=== PATIENT | female | born 1940 | race Caucasian/White ===

== ENCOUNTER → 2019-08-11 11:25 | Outpatient (BNVA) | payer MEDICARE, MEDICAID, SELFPAY | PROVIDERS: Family Provider Nurse Practitioner Family; Referring Provider Nurse Practitioner Family; Visit Provider Specialist | DX: M25.562 Pain in left knee (principal) | CPT/HCPCS: 73560; 73565 ==

== ENCOUNTER 2019-09-17 17:11 | Emergency (ER) | payer MEDICARE, MEDICAID, SELFPAY ==
[2019-09-17 17:14] VITALS: BP 118/63; PULSE 73; RESP 18; TEMP 36.6; O2SAT 94; BMI 35.2
--- NOTE | 2019-09-17 17:19 | ED_ITS ---
Entered by Jayda Montejo, acting as scribe for Stephanie Castañeda DO Sep 17, 2019 17:11 HPI - Extremity Problem General: Stated complaint: leg pain,swelling Time Seen by Provider: 09/17/19 17:20 Discharge Plan Discharge Prescriptions: No Action tramadol 50 mg tablet 50 mg PO Q6H PRNRF: 0 metoprolol tartrate 25 mg tablet 12.5 mg PO BID RF: 0 simvastatin 20 mg tablet 20 mg PO QDAY RF: 0 aspirin 325 mg tablet 325 mg PO QDAY RF: 0 calcium carbonate [Calcium 500] 500 mg calcium (1,250 mg) tablet 500 mg PO QDAY RF: 0 fexofenadine 180 mg tablet 180 mg PO QDAY RF: 0 magnesium oxide,aspartate,citr 400 mg magnesium capsule PO RF: 0 prenat.vits,james,[id number]-[id number]-[id number] PO RF: 0 ferrous sulfate [Feosol] 325 mg (65 mg iron) tablet 325 mg PO QDAY RF: 0 ergocalciferol (vitamin D2) 2,500 unit capsule 2,500 unit PO .COMPLEX RF: 0 citalopram [Celexa] 40 mg tablet 20 mg PO QDAY RF: 0 ropinirole 0.25 mg tablet 0.25 mg PO QDAY RF: 0 Coding Level of Care Code ED Fire Alarm Inspector for Jose Maria Tran
--- NOTE | 2019-09-17 17:26 | ED_ITS ---
HPI - General Adult General: Chief complaint: General Medical Stated complaint: leg pain,swelling Time Seen by Provider: 09/17/19 17:20 History of Present Illness: HPI narrative: Patient is a 79-year-old female comes to the ED with lower extremity pain and swelling. Symptoms started 3 days ago and have gotten worse. The symptoms are bilateral and the pain and swelling starts superior to the ankle and goes up to about mid tibia. It is also has some erythema on both right and left lower leg. Patient denies any shortness of breath or chest pain. Associated symptoms: Deny chest pain, dyspnea, headache(s), nausea, rash, palpitations or vomiting Review of Systems Const: Denies: fever, chills or fatigue Eyes: Denies: change in vision or eye discomfort ENMT: Denies: throat pain, painful swallowing, nasal discharge or nasal congestion Card: Denies: chest pain, palpitations, edema, swelling of feet/ankles, shortness of breath on exertion or shortness of breath when lying down Resp: Denies: shortness of breath, productive cough or non-productive cough GI: Denies: abdominal pain, nausea, vomiting, diarrhea, constipation or blood in stool : Denies: flank pain, painful urination or blood in urine Musc: Reports: extremity pain (bilateral lower leg) and extremity swelling (bilateral lower leg); Denies: neck pain or back pain Skin/Breast: Reports: redness (bilateral lower legs) and skin tenderness (bilateral lower legs); Denies: rash or new lesion Neuro: Denies: headache, numbness in extremities or weakness in extremities PFS ED PFSH: Family History Other Dementia Diabetes Heart attack Hypertension Social History Smoking and tobacco status: never smoked Physical Exam Const: COMMON NORMALS: oriented x3 HENMT: COMMON NORMALS: normocephalic HEAD & SCALP: normocephalic MOUTH: oral and palatal mucosa normal THROAT: posterior oropharynx normal and uvula midline Neck/C-Spine: COMMON NORMALS: supple GENERAL: Yes normal visual inspection Resp: COMMON NORMALS: normal respiratory effort, no retractions, no use of accessory muscles and clear to auscultation bilaterally AUSCULTATION: clear to auscultation bilaterally Cardio: COMMON NORMALS: regular rate, regular rhythm, S1 normal heart sound, S2 normal heart sound, no gallops, no clicks, no murmurs and peripheral pulses 2+ throughout RATE: regular rate RHYTHM: regular rhythm HEART SOUNDS: S1 normal and S2 normal PERIPHERAL PULSES: pulses 2+ throughout GI: COMMON NORMALS: normal to inspection, nondistended, normoactive bowel sounds, soft to palpation, non-tender and no masses PALPATION: Yes soft : COMMON NORMALS: Yes no CVA tenderness BLADDER/KIDNEY EXAM: Yes no CVA tenderness Back/Pelvis: COMMON NORMALS: no CVA tenderness Extremity: NARRATIVE EXTREMITY EXAM: Right and left lower legs starting at about the ankle up to the mid calf region had erythema and warmth. They were also tender upon palpation. 2+ pitting edema bilaterally starting superior to the ankle and the edema went all the way up the lower leg just inferior to knee. GENERAL: Yes normal exam except as noted and Yes edema (2+ pitting edema on both L and R lower legs--up to the knee) Neuro: COMMON NORMALS: oriented x3 and moves all extremities Skin: GENERAL SKIN EXAM: erythema (Erythema and warmth bilateral lower legs about ankle to mid calf.) Course Vital Signs: Vital signs: Vital Signs Temperature 97.8 F 09/17/19 17:14 Pulse Rate 76 09/17/19 19:47 Respiratory Rate 16 09/17/19 19:47 Blood Pressure 111/67 09/17/19 19:47 Pulse Oximetry 96 09/17/19 19:47 [facility] - General Adult Imaging Data^: US Vascular: Attestation: I personally reviewed and interpreted this imaging study as follows: Radiologist's impression: Ultrasound venous duplex bilateral lower extremity?prelim report-showed an old clot in the popliteal vein of Right leg, but it is nonobstructing and the vein compresses. Discharge Plan Discharge Patient Disposition: Home, Self-Care Clinical Impression: Cellulitis Qualifiers: Site of cellulitis: extremity Site of cellulitis of extremity: lower extremity Laterality: unspecified laterality Qualified Code(s): L03.119 - Cellulitis of unspecified part of limb Condition: Stable Prescriptions: New sulfamethoxazole-trimethoprim 800-160 mg tablet 1 tab PO BID 7 Days Qty: 14 RF: 0 No Action tramadol 50 mg tablet 50 mg PO Q6H PRN (Reason: Pain) RF: 0 metoprolol tartrate 25 mg tablet 12.5 mg PO BID RF: 0 simvastatin 20 mg tablet 20 mg PO DAILY RF: 0 aspirin 325 mg tablet 325 mg PO QDAY RF: 0 calcium carbonate [Calcium 500] 500 mg calcium (1,250 mg) tablet 500 mg PO DAILY RF: 0 fexofenadine 180 mg tablet 180 mg PO DAILY RF: 0 magnesium oxide,aspartate,citr 400 mg magnesium capsule 400 mg PO DAILY RF: 0 prenat.vits,james,[id number] 1 tab PO DAILY RF: 0 ferrous sulfate [Feosol] 325 mg (65 mg iron) tablet 325 mg PO DAILY RF: 0 ergocalciferol (vitamin D2) 2,500 unit capsule 2,500 unit PO .COMPLEX RF: 0 citalopram [Celexa] 40 mg tablet 20 mg PO DAILY RF: 0 ropinirole 0.25 mg tablet 0.25 mg PO DAILY RF: 0 Tylenol 325 mg Tablet 325 mg PO QID PRN (Reason: Pain) RF: 0 Discharge Orders: Discharge Order (Routine); Ordered 09/17/19 Ordered By: Loc Domínguez Referrals: Radha Piper FNP [Family Provider] - Discharge Diet: Regular Discharge Activity: Resume usual activity Patient Instructions: Cellulitis (ED) Activity Restrictions/Additional Instructions: Follow-up with your PCP in 7 days for reevaluation. Take full course of antibiotics as prescribed. Take ibuprofen or Tylenol as needed for pain or fevers. Drink plenty of fluids and stay hydrated. Return to the ED if symptoms worsen after 2-3 days of antibiotic treatment. Discharge Date/Time: 09/17/19 19:56 Coding Level of Care Code ED Medical Surgery Nurse for Jose Maria Fwisai Exam Comprehensive
--- NOTE | 2019-09-17 17:47 | PC.NURSE ---
Patient has bilateral pitting Edema to both lower extremities.
--- NOTE | 2019-09-17 18:06 | USR_ITS ---
PROCEDURE INFORMATION: Exam: US Duplex Lower Extremity Veins Exam date and time: 09/17/2019 6:43 PM Age: 79 years old Clinical indication: Edema, localized; Lower extremity, bilateral; Patient HX: No history of prior dvt; Additional info: Swelling and pain TECHNIQUE: Imaging protocol: Real-time duplex ultrasound of the Lower Extremities with 2-D piedra scale, color Doppler flow and spectral waveform analysis with image documentation. Complete exam focused on the bilateral lower extremity veins. COMPARISON: No relevant prior studies available. FINDINGS: Right deep veins: Hypoechoic, nonocclusive thrombus in the popliteal vein. The common femoral, femoral, proximal profunda femoral, posterior tibial and peroneal veins are patent without thrombus. Right superficial veins: Saphenofemoral junction is patent without thrombus. Left deep veins: Unremarkable. The common femoral, femoral, proximal profunda femoral, popliteal, posterior tibial and peroneal veins are patent without thrombus. Normal Doppler waveforms. Normal compressibility and/or augmentation response. Left superficial veins: Saphenofemoral junction is patent without thrombus. Soft tissues: Unremarkable. US/CV venous duplex [facility] [id number] IMPRESSION: Hypoechoic, nonocclusive thrombus in the right popliteal vein.
[2019-09-17 19:00] VITALS: BP 123/62; PULSE 68; RESP 16; O2SAT 95
--- NOTE | 2019-09-17 19:05 | PC.NURSE ---
Introduced myself to patient, patient getting an ultrasound at present voices no complaints, family at bedside.
[2019-09-17] MEDS: sulfamethoxazole-trimeth DS 160-800 mg Tablet 1 TAB PO (19:46)
[2019-09-17 19:47] VITALS: BP 111/67; PULSE 76; RESP 16; O2SAT 96
--- NOTE | 2019-09-17 19:56 | PC.NURSE ---
Patient dc'd home instable condition via wheelchair. Discharge papers and rx given and explained to patient with allq uestions asked and answered.
== END 2019-09-17 19:56 | disposition home or self-care (01) ==
PROVIDERS: Emergency Provider Physician Assistant; Family Provider Nurse Practitioner Family
DX: L03.119 Cellulitis of unspecified part of limb (principal)
CPT/HCPCS: 12345; 93970; 99281; 99283

== ENCOUNTER 2019-12-10 09:50 | Outpatient (CLI) | payer MEDICARE, MEDICAID, SELFPAY ==
--- NOTE | 2019-12-10 09:58 | FL_ITS ---
WS: [id number] MODIFIED BARIUM SWALLOW HISTORY: Other dysphagia FLUOROSCOPY TIME: 2.8 minutes. Modified barium swallow was performed by the speech pathologist. Fluoroscopy was provided with the pa tient in a lateral projection. Multiple food consistencies were provided. Patient swallowed all food consistencies without difficulty. No aspiration or laryngeal penetration. There is an esophageal diverticulum extending posteriorly from the C3-4 level. Intermittent visualiza tion with various stages of distention. There is very slight narrowing of the esophagus at this level also but does not cause limitation in swallowing. FL/FL barium swallow modifd [id number] IMPRESSION: 1. No aspiration or laryngeal penetration. 2. Intermittently visualized Zenker's diverticulum extending posteriorly at th e C3-4 level. Please see speech therapist report also for recommendations.
== END 2019-12-10 09:51 | disposition home or self-care (01) ==
LOC: RAD 09:55
PROVIDERS: PCP Nurse Practitioner Family; Visit Provider Nurse Practitioner Family
DX: R13.10 Dysphagia, unspecified (principal); K22.5 Diverticulum of esophagus, acquired
CPT/HCPCS: 74230; 92611

== ENCOUNTER 2021-05-01 15:33 | Outpatient (CLI) | payer MEDICARE, MEDICAID, SELFPAY ==
--- NOTE | 2021-05-01 15:53 | XR_ITS ---
WS: [id number] Left knee, 3 views, 05/01/2021 Clinical Data: PAIN IN LEFT KNEE, KNEE EFFUSION Comparison: Left knee, 08/11/2019. Findings: No fractures or dislocations are seen. There is medial joint compartment narrowing. The patella is in tact. Vascular calcification of the superficial femoral artery is seen. XR/XR knee LT 3V* [id number] Impression: Minimal narrowing of the medial joint compartment of the left knee. Kellgren-Alejo Classification: grade 1 (doubtful): doubtful joint space narr owing and possible osteophytic lipping
== END 2021-05-01 15:34 | disposition home or self-care (01) ==
PROVIDERS: PCP Nurse Practitioner Family; Visit Provider Specialist
DX: M25.562 Pain in left knee (principal)
CPT/HCPCS: 73562

== ENCOUNTER 2021-09-03 12:06 | Outpatient (CLI) | payer MEDICARE, MEDICAID, SELFPAY ==
--- NOTE | 2021-09-03 12:17 | US_ITS ---
WS: [id number] ULTRASOUND SOFT TISSUES LEFT knee HISTORY: CONTUSION OF L LOWER LEG COMPARISON: Radiograph 05/01/2021 TECHNIQUE: 2-D and color Doppler imaging is submitted. Ultrasound is directed over the lateral LEFT knee in the region of the palpable abnormality. There is a hypoechoic mass with shadowing in the subcutaneous soft tissues along the lateral proximal tibia. No increased vascularity. This mass is lobulated measuring 1.8 x 0.7 x 1.5 cm. There are a few additi onal round complex cystic areas along the lateral LEFT lower extremity. US/US soft tissue/extremity [id number] IMPRESSION: 1. Nonvascular cystic and hypoechoic nodules along the lateral LEFT knee in th e area of palpable abnormality. With no increased vascularity these are probabl y not soft tissue neoplastic masses. Meniscal cysts or thrombosed varicosities should be considered. 2. If additional evaluation is necessary MRI LEFT knee may be helpful.
== END 2021-09-03 12:07 | disposition home or self-care (01) ==
LOC: RAD 12:12
PROVIDERS: PCP Nurse Practitioner Family; Visit Provider Nurse Practitioner Family
DX: S80.12XA Contusion of left lower leg, initial encounter (principal); X58.XXXA Exposure to other specified factors, initial encounter
CPT/HCPCS: 76882

== ENCOUNTER 2021-10-22 15:46 | Outpatient (CLI) | payer MEDICARE, MEDICAID, SELFPAY ==
--- NOTE | 2021-10-22 16:13 | MR_ITS ---
WS: [id number] MRI LEFT KNEE, with and without contrast. HISTORY: NON VASCULAR CYSTIC AND HYPO ECHO NODULES; MENISCAL CYST Multiplanar sequences through the knee are performed with and without gadolinium. COMPARISON: Knee radiographs 05/01/2021 and soft tissue ultrasound 09/03/2021. Anterior cruciate ligament: Mild thinning of the ACL but the fibers do appear intact. Posterior cruciate ligament: Intact. Medial collateral ligament: Intact. Posterior lateral corner structures: Intact. Medial menisci: Normal. No meniscal tears. Lateral meniscus: Complex tear in the posterior horn. There is blunting of the free edge and abnormal signal extending to the superior and inferior articular surfaces and towards the meniscal root. Mild intrasubstance degeneration in the anterior horn. Extensor mechanism: Distal quadriceps tendon and patellar tendons are intact. Fluid and soft tissue: No joint effusion. No Chaudhry's cyst. Osseous and articular structures: Patellofemoral compartment: Mild diffuse chondromalacia. No marrow edema or subchondral cysts. There is very slight lateral subluxation of the patella. No significant amount of fluid at the joint space. Medial compartment: Mild narrowing of the medial compartment. Mild diffuse thinning and fissuring of the cartilage. No marrow edema. Lateral compartment: Moderate narrowing of the lateral compartment with moderate chondromalacia. No m arrow edema or fracture. No soft tissue masses are identified. There are several small varicosities noted. There is no soft ti ssue mass. Normal marrow signal. The small round nodules in this subcutaneous soft tissue along the l ateral knee do not enhance. MR/MR knee LT wo/w con [id number] IMPRESSION: 1. No enhancing soft tissue mass identified. 2. Small previous the described nodules along lateral knee do not enhance and these are probably thrombosed varicosities. 3. Complex tear posterior horn of the lateral meniscus. 4. 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
[2021-10-22] MEDS: gadobenate dimeglumine 20 mL vial IV (17:44)
== END 2021-10-22 15:47 | disposition home or self-care (01) ==
LOC: RAD 15:48
PROVIDERS: PCP Nurse Practitioner Family; Visit Provider Nurse Practitioner Family
DX: S83.272A Complex tear of lateral meniscus, current injury, left knee, initial encounter (principal); X58.XXXA Exposure to other specified factors, initial encounter
CPT/HCPCS: 73723; 82565

== ENCOUNTER 2021-12-29 18:50 | Inpatient (IN) | payer MEDICARE, MEDICAID, SELFPAY ==
--- NOTE | 2021-12-29 19:00 | ECG_ITS ---
[facility] Test Date: 2021-12-29 Pat Name: Heidi Banuelos Department: Room: Gender: Female Tobacco Blender: : 1940 Requested By: Rodney Lay Order Number: [id number] Leopoldo MD: Cookie Carolina M.D. Measurements Intervals [place] Rate: 79 P: 57 MD: 161 QRS: 48 QRSD: 90 T: 41 QT: 385 QTc: 443 Interpretive Statements SINUS RHYTHM NONSPECIFIC T-WAVE ABNORMALITY Compared to ECG 07/30/2016 10:51:11 Ventricular premature complex(es) no longer present Possible ischemia no longer present T-wave abnormality still present Electronically Signed On 12-30-2021 13:01:46 CDT by Cookie Carolina M.D. [id number]
--- NOTE | 2021-12-29 19:00 | XRR_ITS ---
PROCEDURE INFORMATION: Exam: XR Chest Exam date and time: 12/29/2021 7:08 PM Age: 81 years old Clinical indication: Injury or trauma; Fall; Blunt trauma (contusions or hematomas); Additional info: SOB TECHNIQUE: Imaging protocol: Radiologic exam of the chest. Views: 1 view. COMPARISON: CR Chest 1 [place] [id number] 07/29/2016 1:28 PM FINDINGS: Lungs: Reticular changes of pulmonary interstitium. No consolidation. Pleural spaces: Unremarkable. No pleural effusion. No pneumothorax. Heart/Mediastinum: Large hiatal hernia. Grossly unremarkable cardiac silhouette given the portable technique and lordotic position. Bones/joints: Right proximal humerus surgical anchor. No fractures identified. XR/XR chest 1V portable [id number] IMPRESSION: No acute chest abnormality identified.
--- NOTE | 2021-12-29 19:03 | CTR_ITS ---
PROCEDURE INFORMATION: Exam: CT Head Without Contrast Exam date and time: 12/29/2021 8:08 PM Age: 81 years old Clinical indication: Injury or trauma; Fall; Blunt trauma (contusions or hematomas); Additional info: AMS TECHNIQUE: Imaging protocol: Computed tomography of the head without contrast. Radiation optimization: All CT scans at this facility use at least one of these dose optimization techniques: automated exposure control; mA and/or kV adjustment per patient size (includes targeted exams where dose is matched to clinical indication); or iterative reconstruction. 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 No intracranial hemorrhage. No mass effect on the brain. No midline shift of brain. [place] matter and white matter interfaces are preserved. Cerebral ventricles: No ventriculomegaly. Paranasal sinuses: Visualized sinuses are unremarkable. No fluid levels. Mastoid air cells: Visualized mastoid air cells are well aerated. Orbital cavities: Symmetric orbits. Lens replacements. Bones/joints: Unremarkable. No acute fracture. Soft tissues: Unremarkable. CT/CT head wo con* [id number] IMPRESSION: Negative for acute intracranial abnormality.
--- NOTE | 2021-12-29 19:03 | XRR_ITS ---
PROCEDURE INFORMATION: Exam: XR Right Hip Exam date and time: 12/29/2021 7:19 PM Age: 81 years old Clinical indication: Injury or trauma; Fall; Blunt trauma (contusions or hematomas); Right; Hip TECHNIQUE: Imaging protocol: Radiologic exam of the Right hip. Views: 1 view hip with pelvis when performed. COMPARISON: CR Pelvis AP 1 or 2 views* [id number] 07/04/2019 3:24 PM FINDINGS: Bones/joints: Unremarkable. No acute fracture. 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 Soft tissues: Unremarkable. XR/XR hip RT 2-3V wo/w pel* [id number] IMPRESSION: No acute findings.
--- NOTE | 2021-12-29 19:03 | XRR_ITS ---
PROCEDURE INFORMATION: Exam: XR Right Knee Exam date and time: 12/29/2021 7:34 PM Age: 81 years old Clinical indication: Injury or trauma; Fall; Blunt trauma; Knee; Right TECHNIQUE: Imaging protocol: Radiologic exam of the Right knee. Views: 1 or 2 views. COMPARISON: [place] [id number] 09/17/2019 6:55 PM FINDINGS: Bones/joints: Moderate severity joint space narrowing. Demineralized bones. No fractures. Unremarkable joint space alignment. Negative for joint space effusion. Soft tissues: Normal. Vasculature: Diffuse atherosclerosis. XR/XR knee RT 1-2V [id number] IMPRESSION: Negative for acute right knee joint abnormality.
[2021-12-29 19:11] VITALS: BP 151/99; PULSE 93; RESP 18; O2SAT 96
--- NOTE | 2021-12-29 19:14 | W.ED.AMS ---
HPI - Altered Mental Status General: Chief Complaint: Altered Mental Status Stated Complaint: WEAKNESS S/P FALL Time Seen by Provider: 12/29/21 18:52 History of Present Illness: Patient is brought in by EMS after being found down at home by family. Patient is normally responsive and interactive, however today when they found her she is not responding appropriately. Upon arrival here the patient is confused, and running a fever. She is awake. Review of Systems General: Reports: ROS unobtainable due to mental status Const: Denies: fever(s) or body aches Eyes: Denies: change in vision or blurry vision ENMT: Denies: throat pain or odynophagia Card: Denies: chest pain or palpitations Resp: Denies: dyspnea or productive cough GI: Denies: abdominal pain, nausea or vomiting : Denies: flank pain or dysuria Musc: Denies: neck pain or back pain Skin/Breast: Denies: rash or pruritus Neuro: Reports: numbness in extremities and weakness in extremities; Denies: headache(s) Psych: Denies: anxiety or change in appetite Endo: Denies: polyuria or excessive sweating PFSH ED PFSH: Family History Other Dementia Diabetes Heart attack Hypertension Social History Smoking and tobacco status: never smoked Physical Exam Const: OTHER: Confused HENMT: COMMON NORMALS: normocephalic and atraumatic HEAD & SCALP: normocephalic and atraumatic Eye: COMMON NORMALS: Equal, round and reactive pupils present and EOMs intact bilaterally PUPIL: Yes Equal, round and reactive pupils present Neck/C-Spine: COMMON NORMALS: full ROM and supple Resp: COMMON NORMALS: No retractions and No use of accessory muscles OTHER: Tachypnea Cardio: COMMON NORMALS: regular rate and regular rhythm RATE: regular rate RHYTHM: regular rhythm GI: COMMON NORMALS: Normal to inspection, nondistended, normoactive bowel sounds present, Soft to palpation and non-tender PALPATION: Yes Soft to palpation Extremity: OTHER: Right hip tenderness to palpation, right leg externally rotated Neuro: OTHER: Patient is awake but confused Psych: COMMON NORMALS: negative for mental status grossly normal Skin: COMMON NORMALS: no rashes or lesions noted and no wounds GENERAL SKIN EXAM: no rashes or lesions noted Course Vital Signs: Vital signs: Vital Signs Pulse Rate 76 12/29/21 21:02 Respiratory Rate 16 12/29/21 21:02 Blood Pressure 141/76 12/29/21 21:02 Pulse Oximetry 96 12/29/21 21:02 MDM - Altered Mental Status Medical Decision Making Patient is brought in by EMS after being found down at home by family. Patient is normally responsive and interactive, however today when they found her she is not responding appropriately. Upon arrival here the patient is confused, and running a fever. She is awake. On physical exam she has dry mucous membranes, right hip tenderness to palpation. Will check labs, CT, x-ray, give IV fluids, and reassess. On reassessment I will start the patient on antibiotics, continue IV fluid resuscitation, and admit to the hospital for further work-up and treatment. Lab Data : 12/29/21 19:06 12/29/21 19:06 Radiology Impressions Chest X-Ray 12/29/21 19:00 IMPRESSION: No acute chest abnormality identified. Head CT 12/29/21 19:03 IMPRESSION: Negative for acute intracranial abnormality. Hip/Pelvis X-Ray 12/29/21 19:03 IMPRESSION: No acute findings. Knee X-Ray 12/29/21 19:03 IMPRESSION: Negative for acute right knee joint abnormality. Laboratory Results WBC 10.8 10^3/uL (4.0-10.0) H 12/29/21 19:06 RBC 4.04 10^6/uL (4.1-5.3) L 12/29/21 19:06 Hgb 12.9 g/dL (11.5-15.3) 12/29/21 19:06 Hct 37.7 % (37.0-47.0) 12/29/21 19:06 MCV 93.3 fl (81-99) 12/29/21 19:06 MCH 31.9 pg (28.0-34.0) 12/29/21 19:06 MCHC 34.2 g/dL (30.0-36.0) 12/29/21 19:06 RDW 12.0 % (12.1-15.1) L 12/29/21 19:06 Plt Count 236 10^3/cmm (130-400) 12/29/21 19:06 MPV 10.9 fL (7.4-10.4) H 12/29/21 19:06 Neut % (Auto) 87.9 % 12/29/21 19:06 Lymph % (Auto) 6.4 % 12/29/21 19:06 [place] % (Auto) 5.2 % 12/29/21 19:06 Eos % (Auto) 0.0 % 12/29/21 19:06 Baso % (Auto) 0.2 % 12/29/21 19:06 Neut # (Auto) 9.47 10^3/uL (1.8-7.7) H 12/29/21 19:06 Lymph # (Auto) 0.7 10^3/uL (0.8-4.8) L 12/29/21 19:06 [place] # (Auto) 0.6 10^3/uL (0.2-0.9) 12/29/21 19:06 Eos # (Auto) 0.0 10^3/uL (0.0-0.8) 12/29/21 19:06 Baso # (Auto) 0.0 10^3/uL (0.0-0.1) 12/29/21 19:06 Nucleated RBC % (auto) 0 % 12/29/21 19:06 Nucleated RBCs # 0.0 /100WBC 12/29/21 19:06 Sodium 137 mmol/L (136-145) 12/29/21 19:06 Potassium 3.5 mmol/L (3.5-5.1) 12/29/21 19:06 Chloride 97 mmol/L (98-107) L 12/29/21 19:06 Carbon Dioxide 23 mmol/L (22-29) 12/29/21 19:06 Anion Gap 20.5 (5-19) H 12/29/21 19:06 BUN 14 mg/dL (8-23) 12/29/21 19:06 Creatinine 0.8 mg/dL (0.5-0.9) 12/29/21 19:06 GFR Calculation Not Reportable 12/29/21 19:06 Glucose 182 mg/dL (65-115) H 12/29/21 19:06 Calculated Osmolality 289 mOsm/kg (285-295) 12/29/21 19:06 Lactic Acid 3.8 mmol/L (0.5-2.2) H 12/29/21 19:06 Calcium 9.6 mg/dL (8.5-10.5) 12/29/21 19:06 Total Bilirubin 1.2 mg/dL (0.15-1.2) 12/29/21 19:06 AST 88 U/L (0-32) H 12/29/21 19:06 ALT 23 U/L (0-33) 12/29/21 19:06 Alkaline Phosphatase 58 IU/L (35-105) 12/29/21 19:06 Ammonia 28 umol/L (11-51) 12/29/21 19:06 Creatine Kinase 3064 U/L (26-192) H* 12/29/21 19:06 Total Protein 7.3 g/dL (6.6-8.7) 12/29/21 19:06 Albumin 4.2 g/dL (3.5-5.2) 12/29/21 19:06 Globulin 3.1 g/dL (1.3-4.6) 12/29/21 19:06 Urine Color Yellow (Yellow) 12/29/21 19:45 Urine Appearance Hazy (CLEAR) A 12/29/21 19:45 Urine pH 7 (5-7) 12/29/21 19:45 Ur Specific [place] 1.010 (1.005-1.030) 12/29/21 19:45 Urine Protein 1+ (Negative) H 12/29/21 19:45 Urine Glucose (UA) Norm (Normal) 12/29/21 19:45 Urine Ketones 1+ (Negative) H 12/29/21 19:45 Urine Blood 3+ (Negative) H 12/29/21 19:45 Urine Nitrate Negative (Negative) 12/29/21 19:45 Urine Bilirubin Neg (Negative) 12/29/21 19:45 Urine Urobilinogen Norm mg/dL (Negative) 12/29/21 19:45 Ur Leukocyte Esterase 2+ (Negative) H 12/29/21 19:45 Urine RBC 0-4 /hpf (0-2) H 12/29/21 19:45 Urine WBC 40-55 /hpf (0-5) H 12/29/21 19:45 Ur Squamous Epith Cells 0-4 /hpf (0-5) H 12/29/21 19:45 Amorphous Sediment Not Reportable 12/29/21 19:45 Urine Bacteria 3+ /hpf (NONE) H 12/29/21 19:45 Discharge Plan Discharge Patient Disposition: Admitted As Inpatient Clinical Impression: Rhabdomyolysis, Altered mental status, Urinary tract infection Condition: Stable Coding Level of Care Code ED Explosive Operator Fuse for Jose Maria Fwisai Exam Comprehensive
[2021-12-29 19:16] LABS: Basophils % 0.2 %; Hematocrit 37.7 % (37.0-47.0); Hemoglobin 12.9 g/dL (11.5-15.3); Lymphocytes # 0.7 10^3/uL (0.8-4.8); Lymphocytes % 6.4 %; Mean Corpuscular HGB Conc 34.2 g/dL (30.0-36.0); Mean Corpuscular Hemoglobin 31.9 pg (28.0-34.0); Mean Corpuscular Volume 93.3 fl (81-99); Mean Platelet Volume 10.9 fL (7.4-10.4); Monocytes # 0.6 10^3/uL (0.2-0.9); Monocytes % 5.2 %; Neutrophils # 9.47 10^3/uL (1.8-7.7); Neutrophils % 87.9 %; Nucleated Red Blood Cells % 0 %; Platelet Count 236 10^3/cmm (130-400); Red Blood Count 4.04 10^6/uL (4.1-5.3); White Blood Count 10.8 10^3/uL (4.0-10.0)
[2021-12-29 19:37] LABS: Alanine Aminotransferase 23 U/L (0-33); Albumin Level 4.2 g/dL (3.5-5.2); Alkaline Phosphatase 58 IU/L (35-105); Ammonia 28 umol/L (11-51); Anion Gap 20.5 (5-19); Aspartate Amino Transferase 88 U/L (0-32); Blood Urea Nitrogen 14 mg/dL (8-23); Calcium 9.6 mg/dL (8.5-10.5); Carbon Dioxide 23 mmol/L (22-29); Chloride 97 mmol/L (98-107); Globulin 3.1 g/dL (1.3-4.6); Glucose 182 mg/dL (65-115); Lactic Sepsis W/Reflex 3.8 mmol/L (0.5-2.2); Osmolality Calculated 289 mOsm/kg (285-295); Potassium 3.5 mmol/L (3.5-5.1); Sodium 137 mmol/L (136-145); Total Bilirubin 1.2 mg/dL (0.15-1.2); Total Protein 7.3 g/dL (6.6-8.7)
[2021-12-29 19:53] LABS: Creatine Phosphokinase 3064 U/L (26-192)
[2021-12-29 20:22] LABS: Add Urine Microscopic? YES; Bilirubin Urine Neg (Negative); Blood Urine 3+ (Negative); Glucose Urine UA Norm (Normal); Ketones Urine 1+ (Negative); Leukocyte Esterase Urine 2+ (Negative); Nitrate Urine Negative (Negative); Protein Urine 1+ (Negative); Urine Appearance Hazy (CLEAR); Urine Color Yellow (Yellow); Urobilinogen Urine Norm (Negative); pH Urine 7 (5-7)
[2021-12-29 20:24] LABS: Add Urine Culture? Yes; Bacteria Urine 3+ /hpf; RBC Urine 0-4 /hpf (0-2); Squamous Epithelial Cell Urine 0-4 /hpf (0-5); WBC Urine 40-55 /hpf (0-5)
[2021-12-29] MEDS: sodium chloride 0.9% 1,000 ML 999 ML IV ×2 (20:24→23:21)
[2021-12-29 21:00] LABS: Reflex Lactate Order REFLEX LACTIC ORDERD
[2021-12-29 21:02] VITALS: BP 141/76; PULSE 76; RESP 16; O2SAT 96
[2021-12-29] MEDS: cefTRIAXone 1,000 MG in sodium chloride 0.9% (plus) 50 ML 100 MG IV (21:02)
[2021-12-29 22:11] LABS: Lactic Acid level (Lactate) 1.1 mmol/L (0.5-2.2)
[2021-12-29 22:36] LABS: Adenovirus Not Detected (NOT DETECT); Chlamydia Pneumoniae Not Detected (NOT DETECT); Coronavirus 229E,HKU1,NL63,OC4 Not Detected (NOT DETECT); Human Metapneumovirus Not Detected (NOT DETECT); Human Rhinovirus/Enterovirus Not Detected (NOT DETECT); Influenza A Not Detected (NOT DETECT); Influenza A H1 Not Detected (NOT DETECT); Influenza A H1-2009 Not Detected (NOT DETECT); Influenza A H3 Not Detected (NOT DETECT); Influenza B Not Detected (NOT DETECT); Mycoplasma Pneumoniae Not Detected (NOT DETECT); Parainfluenza Virus Type 1 Not Detected (NOT DETECT); Parainfluenza Virus Type 2 Not Detected (NOT DETECT); Parainfluenza Virus Type 3 Not Detected (NOT DETECT); Parainfluenza Virus Type 4 Not Detected (NOT DETECT); Respiratory Syncytial Virus A Not Detected (NOT DETECT); Respiratory Syncytial Virus B Not Detected (NOT DETECT); SARS-COV-2 Not Detected (NOT DETECT)
[2021-12-29] MEDS: sodium chloride 0.9% 1,000 ML 125 ML IV (23:21)
[2021-12-29 23:23] VITALS: BP 119/66; PULSE 72; RESP 20; TEMP 36.7; O2SAT 97
--- NOTE | 2021-12-29 23:23 | PM.HP ---
Providers/Chief Complaint Admitting Physician: Rocío Daniel MD Primary Care Provider: Radha Piper [employer] Chief Complaint: WEAKNESS S/P FALL History of Present Illness Heidi Banuelos is a 81 year old female who presented to the emergency room after being found down at home by family. She was quite confused when they found her. Last time that they saw her in person was maybe 12 hours prior to being found by their report. Corina's daughter took her some food over to her and she usually eats that and then later on goes to bed. Patient lives alone but her daughter is nearby and can see the lights in the house. The lights did not go out as they usually do which prompted the visit where they found her on the floor. She has not been quite herself the last few days. Some fevers, malaise and confusion. She indicates that she got up to go to the bathroom and fell down but cannot really provide clear details. She indicates her left leg was numb and that she has some other paresthesias but family clarified that that was not a new problem. No report of any speech or swallowing difficulties. Denies difficulty with either one of her hands. Patient is chronically incontinent. No indication at this is changed lately. She denies chest pain or difficulty breathing. No GI symptoms. Work-up in the emergency room included an unremarkable CT of the head. Urinalysis was suggestive of urinary tract infection. EKG did not show any acute ST segment changes. CK level was found to be quite elevated at greater than 3000. Patient received a dose of Rocephin and was started on some IV fluids. Request was made for admission for continued treatment. Again family indicates it was maybe 12 hours max that she might of been on the floor. They describe several episodes of falls lately each one more difficult than the last. There have been concerns about her continuing to live alone and being safe with this. She does not routinely use her walker. She has had falls both in the house and outside of it. Review of Systems General: Reports: Other (Patient confused and repeats questions presently so accuracy limited) Const: Reports: fever(s), chills and malaise Eyes: Reports: floaters (Not new); Denies: change in vision ENMT: Reports: dry mouth; Denies: throat pain or nasal congestion Card: Reports: swelling of feet/ankles; Denies: chest pain or palpitations Resp: Denies: dyspnea, productive cough or non-productive cough GI: Denies: abdominal pain, nausea, vomiting or diarrhea : Reports: urinary incontinence; Denies: difficulty voiding or hematuria Musc: Reports: extremity pain (chronic all over and acute both legs, right more than left) Skin/Breast: Denies: sores Neuro: Reports: numbness in extremities, weakness in extremities, lack of coordination, difficulty walking, frequent falls, dizziness, confusion, involuntary movements (legs sometimes) and other (falls backwards when she falls,never forward) Psych: Reports: other (repeating questions today, family says new of last week) Vishal/Lymph: Denies: easy bruising or easy bleeding Medications/Allergies Home Medications Medication Instructions Recorded Confirmed Last Taken Type aspirin 325 mg tablet 325 mg PO QDAY 08/11/19 09/17/19 09/16/19 History calcium carbonate 500 mg calcium 500 mg PO DAILY 08/11/19 09/17/19 09/17/19 History (1,250 mg) tablet (Calcium 500) citalopram 40 mg tablet (Celexa) 20 mg PO DAILY 08/11/19 09/17/19 09/17/19 History ergocalciferol (vitamin D2) 62.5 2,500 unit PO .COMPLEX cap 08/11/19 09/17/19 Unknown History mcg (2,500 unit) capsule ferrous sulfate 325 mg (65 mg 325 mg PO DAILY 08/11/19 09/17/19 09/17/19 History iron) tablet (Feosol) fexofenadine 180 mg tablet 180 mg PO DAILY 08/11/19 09/17/19 09/17/19 History magnesium oxide,aspartate,citr 400 mg PO DAILY 08/11/19 09/17/19 09/17/19 History metoprolol tartrate 25 mg tablet 12.5 mg PO BID 08/11/19 09/17/19 09/17/19 History prenat.vits,james,uwd-cbvb-whndj 1 tab PO DAILY 08/11/19 09/17/19 09/17/19 History ropinirole 0.25 mg tablet 0.25 mg PO DAILY 08/11/19 09/17/19 09/16/19 History simvastatin 20 mg tablet 20 mg PO DAILY 08/11/19 09/17/19 09/16/19 History tramadol 50 mg tablet 50 mg PO Q6H PRN 08/11/19 09/17/19 09/16/19 History acetaminophen 325 mg tablet 325 mg PO QID PRN 09/17/19 09/17/19 09/17/19 History (Tylenol) DME: Dave #1 each 11/01/19 Unknown Rx Allergies Allergy/AdvReac Type Severity Reaction Status Date / Time codeine AdvReac Gi Verified 08/11/19 11:51 upset/dizziness Penicillins AdvReac GI upset Verified 08/11/19 11:51 Additional Medication Information Above list is old. Unable to get specific information from patient this evening annd she is one who manages her medications. I was able to identify in external records that patient has had prescriptions written for metoprolol, simvastatin, citalopram, Requip and tramadol filled within the last few months. She also had a prescription for hydrochlorothiazide as needed for edema, but family indicates that this was stopped several weeks ago as patient was taking it every day rather than as needed. 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 Zenker's diverticulum intermittently seen in swallow study 11/2019 Surgical History (Updated 12/29/21 @ 23:39 by Rocío Daniel MD) History of appendectomy History of hysterectomy History of repair of rotator cuff Family History (Updated 12/29/21 @ 23:39 by Rocío Daniel MD) Other Cancer Dementia Diabetes Heart attack Hypertension Social History (Updated 12/29/21 @ 23:41 by Rocío Daniel MD) Smoking and tobacco status: never smoked Alcohol intake: never Substance/Drug Use: never Household members: other Details: lives alone but family near by Vitals/I&O/Wt Last Vital Signs Pulse 76 12/29/21 21:02 Resp 16 12/29/21 21:02 BP 141/76 12/29/21 21:02 Pulse Ox 96 12/29/21 21:02 12/29/21 12/29/21 12/30/21 14:59 22:59 06:59 Intake Total 1050 / 1050 Balance 1050 / 1050 Physical Exam Narrative: Constitutional: Awake and alert, cooperative, hard of hearing HEENT: Normocephalic, atraumatic, extraocular movements intact, reactive pupils, very dry oral mucosa with very dry lips Neck: Supple, no nodularity Respiratory: Clear to auscultation bilaterally without any rales rhonchi or wheezes Cardiovascular: Regular rate and rhythm, no murmurs, gallops or rubs noted Abdomen: Soft, nontender, positive bowel sounds : Chaudhry catheter noted, normal external genitalia Extremities: Trace edema bilaterally tender to palpation in musculature of the lower extremities anywhere I touch her, seen for the upper extremities though to a lesser degree Skin: Dry, most notable around the abdominal wall and into the groin area are small pinpoint areas of erythema, not involving the intertriginous areas, follicular distribution Neuro: Speech clear, face symmetric, handgrip equal, left lower extremity is slightly weaker than right lower extremity initially but with encouragement similar strength. Strength is weaker proximally at the present time. Psych: Oriented to person and place, made several identical statements and asked a few identical questions several times during the course of my evaluation without recollection of previous responses. At the same time when her granddaughter made a joke Mrs. Sanchez responsive sticking out her tongue was quite appropriate Urinary Catheter Management: Chaudhry: Cath Placed During This Visit: yes Urinary Catheter Date of Insertion: 12/29/21 Urinary Catheter Time of Insertion: 19:48 Data : 12/29/21 19:06 12/29/21 19:06 Other Labs: Radiology Impressions Chest X-Ray 12/29/21 19:00 IMPRESSION: No acute chest abnormality identified. Head CT 12/29/21 19:03 IMPRESSION: Negative for acute intracranial abnormality. Hip/Pelvis X-Ray 12/29/21 19:03 IMPRESSION: No acute findings. Knee X-Ray 12/29/21 19:03 IMPRESSION: Negative for acute right knee joint abnormality. Laboratory Results WBC 10.8 10^3/uL (4.0-10.0) H 12/29/21 19:06 RBC 4.04 10^6/uL (4.1-5.3) L 12/29/21 19:06 Hgb 12.9 g/dL (11.5-15.3) 12/29/21 19:06 Hct 37.7 % (37.0-47.0) 12/29/21 19:06 MCV 93.3 fl (81-99) 12/29/21 19:06 MCH 31.9 pg (28.0-34.0) 12/29/21 19:06 MCHC 34.2 g/dL (30.0-36.0) 12/29/21 19:06 RDW 12.0 % (12.1-15.1) L 12/29/21 19:06 Plt Count 236 10^3/cmm (130-400) 12/29/21 19:06 MPV 10.9 fL (7.4-10.4) H 12/29/21 19:06 Neut % (Auto) 87.9 % 12/29/21 19:06 Lymph % (Auto) 6.4 % 12/29/21 19:06 Bullock % (Auto) 5.2 % 12/29/21 19:06 Eos % (Auto) 0.0 % 12/29/21 19:06 Baso % (Auto) 0.2 % 12/29/21 19:06 Neut # (Auto) 9.47 10^3/uL (1.8-7.7) H 12/29/21 19:06 Lymph # (Auto) 0.7 10^3/uL (0.8-4.8) L 12/29/21 19:06 Bullock # (Auto) 0.6 10^3/uL (0.2-0.9) 12/29/21 19:06 Eos # (Auto) 0.0 10^3/uL (0.0-0.8) 12/29/21 19:06 Baso # (Auto) 0.0 10^3/uL (0.0-0.1) 12/29/21 19:06 Nucleated RBC % (auto) 0 % 12/29/21 19:06 Nucleated RBCs # 0.0 /100WBC 12/29/21 19:06 Sodium 137 mmol/L (136-145) 12/29/21 19:06 Potassium 3.5 mmol/L (3.5-5.1) 12/29/21 19:06 Chloride 97 mmol/L (98-107) L 12/29/21 19:06 Carbon Dioxide 23 mmol/L (22-29) 12/29/21 19:06 Anion Gap 20.5 (5-19) H 12/29/21 19:06 BUN 14 mg/dL (8-23) 12/29/21 19:06 Creatinine 0.8 mg/dL (0.5-0.9) 12/29/21 19:06 GFR Calculation Not Reportable 12/29/21 19:06 Glucose 182 mg/dL (65-115) H 12/29/21 19:06 Calculated Osmolality 289 mOsm/kg (285-295) 12/29/21 19:06 Lactic Acid 3.8 mmol/L (0.5-2.2) H 12/29/21 19:06 Lactic Acid (Sepsis) 1.1 mmol/L (0.5-2.2) 12/29/21 21:40 Calcium 9.6 mg/dL (8.5-10.5) 12/29/21 19:06 Total Bilirubin 1.2 mg/dL (0.15-1.2) 12/29/21 19:06 AST 88 U/L (0-32) H 12/29/21 19:06 ALT 23 U/L (0-33) 12/29/21 19:06 Alkaline Phosphatase 58 IU/L (35-105) 12/29/21 19:06 Ammonia 28 umol/L (11-51) 12/29/21 19:06 Creatine Kinase 3064 U/L (26-192) H* 12/29/21 19:06 Total Protein 7.3 g/dL (6.6-8.7) 12/29/21 19:06 Albumin 4.2 g/dL (3.5-5.2) 12/29/21 19:06 Globulin 3.1 g/dL (1.3-4.6) 12/29/21 19:06 Urine Color Yellow (Yellow) 12/29/21 19:45 Urine Appearance Hazy (CLEAR) A 12/29/21 19:45 Urine pH 7 (5-7) 12/29/21 19:45 Ur Specific [place] 1.010 (1.005-1.030) 12/29/21 19:45 Urine Protein 1+ (Negative) H 12/29/21 19:45 Urine Glucose (UA) Norm (Normal) 12/29/21 19:45 Urine Ketones 1+ (Negative) H 12/29/21 19:45 Urine Blood 3+ (Negative) H 12/29/21 19:45 Urine Nitrate Negative (Negative) 12/29/21 19:45 Urine Bilirubin Neg (Negative) 12/29/21 19:45 Urine Urobilinogen Norm mg/dL (Negative) 12/29/21 19:45 Ur Leukocyte Esterase 2+ (Negative) H 12/29/21 19:45 Urine RBC 0-4 /hpf (0-2) H 12/29/21 19:45 Urine WBC 40-55 /hpf (0-5) H 12/29/21 19:45 Ur Squamous Epith Cells 0-4 /hpf (0-5) H 12/29/21 19:45 Amorphous Sediment Not Reportable 12/29/21 19:45 Urine Bacteria 3+ /hpf (NONE) H 12/29/21 19:45 Coronavirus 229E (PCR) Not detected (NOT DETECT) 12/29/21 18:42 SARS-CoV-2 (PCR) Not detected (NOT DETECT) 12/29/21 18:42 Micro: Microbiology 12/29/21 21:47 Blood Culture - Preliminary Blood SPECIMEN COLLECTED 12/29/21 21:40 Blood Culture - Preliminary Blood SPECIMEN COLLECTED A&P Assessment and plan (1) Altered mental status: Predominantly confused and asking the same questions or stating the same thing several times, has been present for a couple of days more notable tonight. Family denies that this is a longstanding problem but brings up the question of possible dementia that is slowly becoming more apparent. That said currently with urinalysis suggestive of urinary tract infection, among other diagnoses noted below, which can also contribute. Status: Acute (2) Urinary tract infection: Present on admission, organism unknown, evidenced by at pyuria, 2+ leukocyte esterase, hazy appearance to urine with 3+ bacteria in the setting of confusion and mild leukocytosis with neutrophil predominance. Has confusion as noted above and some nonspecific abnormalities in labs consistent at least with some early systemic inflammatory response syndrome but no definitive sepsis currently. Normal vital signs. Status: Acute (3) Rhabdomyolysis: Likely secondary to being on the floor all night but she is also on chronic statin therapy, renal function currently normal CK at presentation 3064 Status: Acute (4) Recurrent falls: Over the last few months. This is the first time she has not been able to get up and stayed on the floor overnight but each event seems to get worse, to the point that both patient and family are concerned. Status: Acute (5) Hyperglycemia: In a patient without a history of diabetes. No glucosuria. Status: Acute Plan Negative rapid COVID PCR testing Isolated mild elevation in AST Borderline oxygen saturations currently requiring oxygen therapy, doubt known history of lung disease Lactic acid of 3.8 - does not have obvious indicators of hypoperfusion currently, beyond the borderline oxygen levels though saturations were only in the low 90s on room air Does not drink and or take medications that I might associate with lactic acidosis. No personal history of malignancy. With stable vital signs I wonder about cardiovascular or cerebrovascular event occurring overnight that we have yet to identify. Erythematous, nonpruritic rash on the trunk, has been present for a few days according to family Inpatient admission IV fluids Repeat CK level Chaudhry catheter for close monitoring of urine output initially Hold statin therapy presently Check serial cardiac enzymes and EKGs Telemetry monitoring for any evidence of arrhythmias Will decrease metoprolol to 12.5 mg Check echo and carotid ultrasound Check INR and lipid panel Serial neuro exams Continue Rocephin for UTI Follow-up pending blood and urine cultures Follow-up pending ABG Wean oxygen therapy as able PT and OT evaluations Check hemoglobin A1c For now we will monitor repeat blood sugars before initiating any potential therapy Recheck liver enzymes in the morning Continue a lower frequency of tramadol, lower dose of citalopram Reviewed with patient and family decreasing doses or frequencies of medicines that might contribute to fall risk, patient was not inclined to think that this was a good approach but I agreed with the plan for the time being Hold Requip presently given presentation, monitoring for evidence of adverse effect necessitating resumption Check TSH Monitor rash for changes Case management for assistance with discharge planning, may require or benefit from skilled placement, or consideration for some home services, with a goal of care to create a safer environment for patient long-term PPI for GI prophylaxis Lovenox for DVT prophylaxis Supportive care otherwise Findings, concerns and plans were discussed with patient as well as her daughter and granddaughter who used to work here. All were given an opportunity to ask questions. CODE STATUS: Allow natural as per discussion with patient in the presence of family Attestations Medical Necessity Statement*: Anticipated stay greater than 2 midnights in this patient presenting after a fall and being on the floor overnight found to have rhabdomyolysis and evidence of urinary tract infection. She has some other abnormalities as described above and reported recurrent falls over the last few months for which a specific etiology is not completely clear. Sounds like multifactorial and related to multiple sensory deficits, but suggestion of possible vascular or cause behind events as described. Plans are as indicated. Coding Level of Care Code Acute Pbx Wire Chief for Maddyg Fwd Diagnoses Altered mental status R41.82 Urinary tract infection N39.0 Rhabdomyolysis M62.82 Recurrent falls R29.6 Hyperglycemia R73.9
[2021-12-30] VITALS (7 sets, daily range): BP systolic 104–113; BP diastolic 61–71; PULSE 62–97; RESP 18–20; TEMP 36.9–37.1; O2SAT 94–97
[2021-12-30] MEDS: TRAMadol 50 mg Tablet PO ×2 (00:46→20:51)
--- NOTE | 2021-12-30 00:52 | USCV_ITS ---
Heidi Banuelos Age: 81 Gender: F : 1940 Exam Date: 12/30/2021 01:50 Ordering Phys: Rocío Daniel MD Technologist: Paul De La Fuente [place]am [place] [facility] [place]ication: fall / unable to get up / unclear event Risk Factors: Previous Vascular Surgery: Right Brachial BP: / Left Brachial BP: / Right Left Velocity (cm/s) Spectral Plaque Velocity (cm/s) Spectral Plaque Syst/Diast Broadening Syst/Diast Broadening 87.10/ 23.20 Prox CCA 72.30 / 18.40 63.90/ 12.10 Mid CCA 60.50 / 13.10 72.80/ 8.80 Distal CCA 61.40 / 10.90 40.80/ 14.30 Prox ICA 70.70 / 16.30 71.70/ 28.70 Mid ICA 56.70 / 17.10 63.90/ 17.60 Distal ICA 84.70 / 23.30 87.10 ECA 94.80 0.82 ICA/CCA 1.17 Antegrade Vertebral Antegrade 24.30/ 5.30 cm/s 27.80/ 10.30 cm/s Tri Subclavian Tri 122.3 87.00 0 FINDINGS Mild to moderate diffuse plaques in the common carotid and internal carotid artery on the right side. Mild diffuse plaque at the bifurcation and the internal carotid artery on the left side Antegrade flow in the vertebral arteries bilaterally Normal Doppler flow velocities in the external carotid, subclavian and vertebral arteries bilaterally CONCLUSIONS Mild to moderate diffuse plaques in the common carotid and internal carotid artery on the right side, with the Doppler features suggesting less than 50% stenosis. Mild diffuse plaque at the bifurcation and the internal carotid artery on the left side. No similar previous studies are available for comparison Dr Buffy Neal MD [facility] (Electronically Signed) Final Date: 01 January 2022 07:41 S
--- NOTE | 2021-12-30 00:52 | USCV_ITS ---
Heidi Banuelos Age: 81 Gender: F : 1940 Exam Date: 12/30/2021 02:07 Ordering Phys: Rocío Daniel MD Technologist: Paul De La Fuente [place] [facility] [place]: fall / unable to get up / pulmonary hypertension BP: 119 / 66 HR: 69 Rhythm: Sinus Technical Quality: Adequate MEASUREMENTS (Male / Female) Normal Values 2D ECHO LV Diastolic Diameter PLAX 2.9 cm 4.2 - 5.9 / 3.9 - 5.3 cm LV Systolic Diameter PLAX 2.1 cm IVS Diastolic Thickness 1.6 cm 0.6 - 1.0 / 0.6 - 0.9 cm IVS Systolic Thickness 1.7 cm LVPW Diastolic Thickness 1.7 cm 0.6 - 1.0 / 0.6 - 0.9 cm LVPW Systolic Thickness 1.9 cm LVOT Diameter 2.0 cm LV Ejection Fraction 2D Teich 55.3 % LV Ejection Fraction MOD 2C 61.3 % LV Ejection Fraction 2C AL 65.1 % LA Diameter 3.3 cm Aorta at Sinotubular Diameter 2.3 cm IVC Diameter 1.8 cm M-MODE Aortic Annulus Diameter 3.1 cm LA Ao Ratio MM 1.2 MV E Point Septal Separation 0.9 cm DOPPLER AV Peak Velocity 135.0 cm/s LVOT Peak Velocity 99.0 cm/s AV Area Cont Eq vti 2.8 cm squared AV Area Cont Eq pk 2.4 cm squared MV Area PHT 2.8 cm squared Mitral E to A Ratio 1.3 MV E' Velocity 52.5 cm/s Mitral E to MV E' Ratio 7.2 Mitral E to LV E' Lateral Ratio 6.1 Mitral E to LV E' Septal Ratio 8.8 Right Atrial Pressure 5.0 mmHg PV Peak Velocity 105.0 cm/s FINDINGS Left Ventricle Normal left ventricular size, systolic function with no regional wall motion abnormalities. Left ventricular ejection fraction is estimated at 70 %. Normal diastolic function. Right Ventricle Right ventricle not well visualized. Normal right ventricular size and systolic function. Right Atrium Right atrium not well visualized. Left Atrium Normal left atrial size. Mitral Valve Mildly thickened mitral valve. Aortic Valve Aortic valve not well visualized. No aortic valve stenosis. No aortic valve regurgitation. Tricuspid Valve Tricuspid valve not well visualized. Pulmonic Valve Pulmonic valve not well visualized. Pericardium No pericardial effusion. Aorta Aorta not well visualized. Normal-sized aortic root. IVC Inferior vena cava not visualized. CONCLUSIONS 1. This is a technically difficult study. 2. Normal left ventricular size, systolic function with no regional wall motion abnormalities. Left ventricular ejection fraction is estimated at 70 %. Normal diastolic function. 2. Normal right ventricular size and systolic function. 3. When compared to previous echocardiogram dated 07/30/2016, right ventricle systolic function may have improved. Cookie Carolina MD (Electronically Signed) Final Date: 30 December 2021 12:56 S
--- NOTE | 2021-12-30 00:57 | ECG_ITS ---
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 Measurements Intervals [place] Rate: 71 P: 85 NC: 164 QRS: 75 QRSD: 73 T: 61 QT: 381 QTc: 415 Interpretive Statements SINUS RHYTHM SEPTAL MYOCARDIAL INFARCTION , OF INDETERMINATE AGE [40+ ms Q WAVE IN V1/V2] Compared to ECG 12/29/2021 20:29:40 Myocardial infarct finding now present T-wave abnormality no longer present Electronically Signed On 12-30-2021 13:01:08 CDT by Cookie Carolina M.D. [id number]
[2021-12-30] MEDS: sodium chlor 0.9% + KCl 20 mEq 20 MEQ/1,000 ML BAG 100 MEQ IV ×3 (01:59→21:27)
[2021-12-30] MEDS: enoxaparin 40 mg/0.4 mL Syringe SUBCUT (01:59)
[2021-12-30 02:07] LABS: Troponin(5th) Baseline 19 ng/L (0-10)
[2021-12-30] MEDS: acetaminophen 325 mg Tablet 650 MG PO (02:09)
--- NOTE | 2021-12-30 02:57 | ECG_ITS ---
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 Measurements Intervals [place] Rate: 69 P: 60 PA: 148 QRS: 66 QRSD: 74 T: 59 QT: 387 QTc: 417 Interpretive Statements SINUS RHYTHM SEPTAL MYOCARDIAL INFARCTION , OF INDETERMINATE AGE [40+ ms Q WAVE IN V1/V2] Compared to ECG 12/30/2021 01:41:17 No significant changes Electronically Signed On 12-30-2021 13:06:27 CDT by Cookie Carolina M.D. [id number]
[2021-12-30 04:41] LABS: Troponin 5 2HR 21.77 ng/L (0-10)
[2021-12-30 04:47] LABS: Troponin 5 2HR Delta 2.77 ABS# (0-10)
[2021-12-30 04:48] LABS: ABG PCO2 35.8 mmHg (35-45); ABG PH Result 7.47 (7.35-7.45)
[2021-12-30 04:49] LABS: HCO3 ABG 26.2 mmol/L (22-26)
[2021-12-30 04:50] LABS: Base Excess ABG 2.7 mmol/L (-2.0-2.0)
[2021-12-30 04:54] LABS: Arterial Blood Gas Hematocrit 41.2 % (37-47)
[2021-12-30 06:16] LABS: Blood Gas Allen Test Pos; Blood Gas Sample Site Radial, right; Blood Gas Sample Type Arterial
--- NOTE | 2021-12-30 06:57 | ECG_ITS ---
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 Measurements Intervals [place] Rate: 69 P: 75 FL: 170 QRS: 70 QRSD: 89 T: 63 QT: 432 QTc: 466 Interpretive Statements SINUS RHYTHM NONSPECIFIC T-WAVE ABNORMALITY Compared to ECG 12/30/2021 05:45:03 T-wave abnormality now present Myocardial infarct finding no longer present Electronically Signed On 12-30-2021 13:06:23 CDT by Cookie Carolina M.D. [id number]
[2021-12-30 07:41] LABS: INR 1.18 (0.8-1.2); Troponin 5 6HR 21.51 ng/L (0-10)
[2021-12-30 08:11] LABS: Troponin 5 6HR Delta 2.51 ng/L (0-12)
[2021-12-30 08:15] LABS: Estmated Average Glucose 114; Hemoglobin A1C 5.6 % (4.0-6.0)
[2021-12-30 08:21] LABS: C Reactive Protein 8.8 mg/L (0.0-4.9); Chol HDL Ratio 2.84 mg/dL (0.0-4.40); Cholesterol 125 mg/dL (0-200); HDL Cholesterol 44 mg/dL (60-100); LDL Cholesterol Calculated 58 mg/dL (50-129); LDL HDL Ratio 1.32 RATIO (0.00-3.22); Magnesium 1.9 mg/dL (1.7-2.3); NT Pro B Type Natriuretic Pept 789 pg/mL (0-450); Phosphorus 2.3 mg/dL (2.5-4.5); Triglycerides 117 mg/dL (0-150)
[2021-12-30] MEDS: metoprolol tartrate 25 mg Tablet 12.5 MG PO ×2 (08:42→21:25)
[2021-12-30] MEDS: pantoprazole DR 40 mg Tablet PO (08:42)
[2021-12-30] MEDS: citalopram 20 mg Tablet PO (08:43)
[2021-12-30 09:33] LABS: Creatine Phosphokinase 3321 U/L (26-192)
--- NOTE | 2021-12-30 13:02 | P.PN_ITS ---
Subjective Subjective: Patient was seen this morning, she sitting up in bed, physical therapy staff is at bedside, she tells me that she lives at home by herself, however her daughter lives across the street, in a camper, and they communicate at times via phone, her daughter usually checks up on her optometrist/practice owner, she t ells that she was on the floor for the hours overnight, currently denies any flank pain, no fevers, chills, nausea, vomiting, chest pain Vitals/I&O/Wt Last Vital Signs Temp 98.5 F 12/30/21 03:32 Pulse 70 12/30/21 10:58 Resp 18 12/30/21 10:58 BP 113/66 12/30/21 10:58 Pulse Ox 94 12/30/21 10:58 12/29/21 12/30/21 12/30/21 22:59 06:59 14:59 Intake Total 1050 / 1050 1300 / 2350 1240 / 1240 Output Total 350 / 350 Balance 1050 / 1050 950 / 2000 1240 / 1240 Weight last 48 hrs Weight 89.448 kg Physical Exam Const: COMMON NORMALS: no acute distress and patient oriented x3 Resp: COMMON NORMALS: normal respiratory effort, No retractions, No use of accessory muscles and clear to auscultation bilaterally AUSCULTATION: clear to auscultation bilaterally Cardio: COMMON NORMALS: regular rate, regular rhythm, S1 normal heart sound present and S2 normal heart sound present RATE: regular rate RHYTHM: regul ar rhythm HEART SOUNDS: S1 normal heart sound present and S2 normal heart sound present GI: COMMON NORMALS: Normal to inspection, nondistended, normoactive bowel sounds present, Soft to palpation, non-tender and No hepatosplenomegaly present PALPATION: Yes Soft to palpation and Yes No hepatosplenomegaly present Extremity: COMMON NORMALS: no pedal edema Neuro: COMMON NORMALS: patient oriented x3 Psych: COMMON NORMALS: mental status grossly normal Urinary Catheter Management: Chaudhry: Cath Placed During This Visit: yes Reason for Continuing Indwelling Catheter: Other Urinary Catheter Date of Insertion: 12/29/21 Urinary Catheter Time of Insertion: 19:48 Data : 12/29/21 19:06 12/29/21 19:06 Micro: Microbiology 12/29/21 21:47 Blood Culture - Preliminary Blood SPECIMEN COLLECTED 06/18/22 21:40 Blood Culture - Preliminary Blood SPECIMEN COLLECTED A&P Assessment and plan (1) Altered mental status: -Currently alert to person, to place, not to time, to follows commands Predominantly confused and asking the same questions or stating the same thing several times, has been present for a couple of days more notable tonight. Family denies that this is a longstanding problem but brings up the question of possible dementia that is slowly becoming more apparent. That said currently with urinalysis suggestive of urinary tract infection, among other diagnoses noted below, which can also contribute. Status: Acute (2) Urinary tract infection: Present on admission, organism unknown, evidenced by at pyuria, 2+ leukocyte esterase, hazy appearance to urine with 3+ bacteria in the setting of confusion and mild leukocytosis with neutrophil predominance. Has confusion as noted above and some nonspecific abnormalities in labs consistent at least with some early systemic inflammatory response syndrome but no definitive sepsis currently. Normal vital signs. Status: Acute (3) Rhabdomyolysis: Likely secondary to being on the floor all night but she is also on chronic statin therapy, renal function currently normal CK at presentation 3064, currently 3321 Status: Acute (4) Recurrent falls: Over the last few months. This is the first time she has not been able to get up and stayed on the floor overnight but each event seems to get worse, to the point that both patient and family are concerned. Status: Acute (5) Hyperglycemia: In a patient without a history of diabetes. No glucosuria. Status: Acute Plan Isolated mild elevation, we will monitor Borderline oxygen saturations currently requiring oxygen therapy, doubt known history of lung disease Lactic acid of 3.8 -likely secondary to UTI, monitor Rhabdomyolysis, monitor CPK Erythematous, nonpruritic rash on the trunk, has been present for a few days according to family Inpatient admission IV fluids Chaudhry catheter for close monitoring of urine output initially Hold statin therapy presently Telemetry monitoring for any evidence of arrhythmias Will decrease metoprolol to 12.5 mg Check echo and carotid ultrasound Serial neuro exams Continue Rocephin for UTI Follow-up pending blood and urine cultures Wean oxygen therapy as able PT and OT evaluations For now we will monitor repeat blood sugars before initiating any potential therapy Recheck liver enzymes in the morning Continue a lower frequency of tramadol, lower dose of citalopram Reviewed with patient and family decreasing doses or frequencies of medicines that might contribute to fall risk, patient was not inclined to think that this was a good approach but I agreed with the plan for the time being Hold Requip presently given presentation, monitoring for evidence of adverse effect necessitating resumption Monitor rash for changes Case management for assistance with discharge planning, may require or benefit from skilled placement, or consideration for some home services, with a goal of care to create a safer environment for patient long-term PPI for GI prophylaxis Lovenox for DVT prophylaxis Supportive care otherwise Findings, concerns and plans were discussed with patient as well as her daughter and granddaughter who used to work here. All were given an opportunity to ask questions. CODE STATUS: Allow natural as per discussion with patient in the presence of family Attestations Medical Necessity Statement*: Patient requires hospitalization for UTI, altered mental status, rhabdomyolysis Coding Level of Care Code Acute Crime Victim Specialist for Jose Maria Fwisai Diagnoses Altered mental status R41.82 Urinary tract infection N39.0 Rhabdomyolysis M62.82 Recurrent falls R29.6 Hyperglycemia R73.9
[2021-12-30] MEDS: cefTRIAXone 1,000 MG in sodium chloride 0.9% (plus) 50 ML 100 MG IV (21:21)
[2021-12-31] MEDS: enoxaparin 40 mg/0.4 mL Syringe SUBCUT ×2 (01:02→23:09)
[2021-12-31 03:59] VITALS: BP 146/80; PULSE 72; RESP 20; TEMP 37; O2SAT 94
[2021-12-31 04:45] LABS: Basophils # 0.1 10^3/uL (0.0-0.1); Eosinophils # 0.3 10^3/uL (0.0-0.8); Eosinophils % 3.6 %; Hematocrit 34.8 % (37.0-47.0); Hemoglobin 11.8 g/dL (11.5-15.3); Lymphocytes # 1.6 10^3/uL (0.8-4.8); Lymphocytes % 20.2 %; Mean Corpuscular HGB Conc 33.9 g/dL (30.0-36.0); Mean Corpuscular Hemoglobin 32.4 pg (28.0-34.0); Mean Corpuscular Volume 95.6 fl (81-99); Monocytes # 0.7 10^3/uL (0.2-0.9); Monocytes % 8.1 %; Neutrophils # 5.35 10^3/uL (1.8-7.7); Neutrophils % 66.7 %; Nucleated Red Blood Cells % 0 %; Platelet Count 199 10^3/cmm (130-400); Red Blood Count 3.64 10^6/uL (4.1-5.3); Red Cell Distribution Width 12.3 % (12.1-15.1)
[2021-12-31 05:22] LABS: Alanine Aminotransferase 34 U/L (0-33); Albumin Level 3.1 g/dL (3.5-5.2); Alkaline Phosphatase 52 IU/L (35-105); Anion Gap 13.3 (5-19); Aspartate Amino Transferase 92 U/L (0-32); Blood Urea Nitrogen 11 mg/dL (8-23); Calcium 8.4 mg/dL (8.5-10.5); Carbon Dioxide 22 mmol/L (22-29); Chloride 108 mmol/L (98-107); Globulin 2.9 g/dL (1.3-4.6); Glucose 84 mg/dL (65-115); Osmolality Calculated 287 mOsm/kg (285-295); Phosphorus 2.5 mg/dL (2.5-4.5); Potassium 4.3 mmol/L (3.5-5.1); Sodium 139 mmol/L (136-145); Thyroid Stimulating Hormone 2.11 uIU/mL (0.27-4.20); Total Bilirubin 0.5 mg/dL (0.15-1.2)
[2021-12-31 07:32] VITALS: BP 130/74; PULSE 71; RESP 14; TEMP 37.2; O2SAT 95
[2021-12-31] MEDS: TRAMadol 50 mg Tablet PO ×2 (08:19→20:58)
[2021-12-31] MEDS: citalopram 20 mg Tablet PO (08:20)
[2021-12-31] MEDS: pantoprazole DR 40 mg Tablet PO (08:20)
[2021-12-31] MEDS: metoprolol tartrate 25 mg Tablet 12.5 MG PO ×2 (10:04→20:58)
[2021-12-31] MEDS: sodium chlor 0.9% + KCl 20 mEq 20 MEQ/1,000 ML BAG 100 MEQ IV ×2 (11:08→22:19)
[2021-12-31 11:58] VITALS: BP 118/70; PULSE 73; RESP 14; TEMP 36.8; O2SAT 95
--- NOTE | 2021-12-31 13:22 | PM.PN ---
Subjective Subjective: Patient was seen this morning, she sitting up in a chair, her only complaint this morning is how cold the room is, she tells me that she wants an extra blanket, denies any lightheadedness, dizziness, no nausea, no vomiting, remains alert to person, to place, not to time, following commands Vitals/I&O/Wt Last Vital Signs Temp 98.2 F 12/31/21 11:58 Pulse 73 12/31/21 11:58 Resp 14 12/31/21 11:58 BP 118/70 12/31/21 11:58 Pulse Ox 95 12/31/21 11:58 12/30/21 12/31/21 12/31/21 22:59 06:59 14:59 Intake Total 1176.667 / 2656.667 240 / 2896.667 1000 / 1000 Output Total 1750 / 1750 Balance 1176.667 / 2656.667 -1510 / 1490.631 5666 / 1000 Weight last 48 hrs Weight 89.448 kg Physical Exam Const: COMMON NORMALS: no acute distress ORIENTATION/CONSCIOUSNESS: Yes awake, Yes oriented to person and Yes oriented to place; not oriented to time Resp: COMMON NORMALS: normal respiratory effort, No retractions, No use of accessory muscles and clear to auscultation bilaterally AUSCULTATION: clear to auscultation bilaterally Cardio: COMMON NORMALS: regular rate, regular rhythm, S1 normal heart sound present and S2 normal heart sound present RATE: regular rate RHYTHM: regular rhythm HEART SOUNDS: S1 normal heart sound present and S2 normal heart sound present GI: COMMON NORMALS: Normal to inspection, nondistended, normoactive bowel sounds present, Soft to palpation and non-tender PALPATION: Yes Soft to palpation Extremity: COMMON NORMALS: no pedal edema Neuro: SENSORIUM/ORIENTATION: Yes oriented to person, Yes oriented to place and No oriented to time Psych: COMMON NORMALS: mental status grossly normal Urinary Catheter Management: Chaudhry: Cath Placed During This Visit: yes Reason for Continuing Indwelling Catheter: Other Urinary Catheter Date of Insertion: 12/29/21 Urinary Catheter Time of Insertion: 19:48 Data : 12/31/21 04:24 12/31/21 04:24 Micro: Microbiology 12/29/21 19:45 Urine Culture - Preliminary Urine,Clean Catch Gram Negative Rods 12/29/21 21:47 Blood Culture - Preliminary Blood NEGATIVE TO DATE 12/29/21 21:40 Blood Culture - Preliminary Blood NEGATIVE TO DATE A&P Assessment and plan (1) Altered mental status: -Currently alert to person, to place, not to time, to follows commands Predominantly confused and asking the same questions or stating the same thing several times, has been present for a couple of days more notable tonight. Family denies that this is a longstanding problem but brings up the question of possible dementia that is slowly becoming more apparent. That said currently with urinalysis suggestive of urinary tract infection, among other diagnoses noted below, which can also contribute. Status: Acute (2) Urinary tract infection: Present on admission, organism unknown, evidenced by at pyuria, 2+ leukocyte esterase, hazy appearance to urine with 3+ bacteria in the setting of confusion and mild leukocytosis with neutrophil predominance. Has confusion as noted above and some nonspecific abnormalities in labs consistent at least with some early systemic inflammatory response syndrome but no definitive sepsis currently. Normal vital signs. Status: Acute (3) Rhabdomyolysis: Likely secondary to being on the floor all night but she is also on chronic statin therapy, renal function currently normal CK at presentation 3064, currently 3321 Status: Acute (4) Recurrent falls: Over the last few months. This is the first time she has not been able to get up and stayed on the floor overnight but each event seems to get worse, to the point that both patient and family are concerned. Status: Acute (5) Hyperglycemia: In a patient without a history of diabetes. No glucosuria. Status: Acute Plan Isolated mild elevation, we will monitor Borderline oxygen saturations currently requiring oxygen therapy, doubt known history of lung disease Lactic acid of 3.8 -likely secondary to UTI, monitor Rhabdomyolysis, monitor for now Erythematous, nonpruritic rash on the trunk, has been present for a few days according to family Inpatient admission Will stop IV fluids DC Chaudhry catheter Hold statin therapy presently Telemetry monitoring for any evidence of arrhythmias Will decrease metoprolol to 12.5 mg Cardiac echocardiogram 1.? This is a technically difficult study. ?2.? Normal left ventricular size, systolic function with no ?regional wall motion abnormalities. Left ventricular ejection ?fraction is estimated at 70 %. Normal diastolic function. ?2. Normal right ventricular size and systolic function. ?3. When compared to previous echocardiogram dated 07/30/2016, ?right ventricle systolic function may have improved. carotid ultrasound Serial neuro exams Continue Rocephin for UTI Follow-up pending blood and urine cultures Wean oxygen therapy as able PT and OT evaluations For now we will monitor repeat blood sugars before initiating any potential therapy Has transaminitis, continue to monitor Continue a lower frequency of tramadol, lower dose of citalopram Reviewed with patient and family decreasing doses or frequencies of medicines that might contribute to fall risk, patient was not inclined to think that this was a good approach but I agreed with the plan for the time being Hold Requip presently given presentation, monitoring for evidence of adverse effect necessitating resumption Monitor rash for changes Case management for assistance with discharge planning proceeding to [facility] placement PPI for GI prophylaxis Lovenox for DVT prophylaxis Supportive care otherwise Findings, concerns and plans were discussed with patient as well as her daughter and granddaughter who used to work here. All were given an opportunity to ask questions. CODE STATUS: Allow natural as per discussion with patient in the presence of family Attestations Medical Necessity Statement*: Patient requires hospitalization for UTI, inpatient, greater than 2 midnights Coding Level of Care Code Acute Laundry Equipment Operator for Maddyg Fwd Diagnoses Altered mental status R41.82 Urinary tract infection N39.0 Rhabdomyolysis M62.82 Recurrent falls R29.6 Hyperglycemia R73.9
[2021-12-31 14:00] VITALS: PULSE 68
[2021-12-31 16:00] VITALS: BP 126/75; PULSE 80; RESP 18; TEMP 36.8; O2SAT 92
[2021-12-31 20:00] VITALS: BP 126/75; PULSE 80; RESP 18; TEMP 36.3; O2SAT 90
[2021-12-31] MEDS: acetaminophen 325 mg Tablet 650 MG PO (20:58)
[2021-12-31] MEDS: cefTRIAXone 1,000 MG in sodium chloride 0.9% (plus) 50 ML 100 MG IV (21:00)
[2022-01-01] VITALS (7 sets, daily range): BP systolic 127–136; BP diastolic 73–89; PULSE 62–79; RESP 12–18; TEMP 36.7–36.9; O2SAT 93–96
[2022-01-01 06:01] LABS: Magnesium 2.1 mg/dL (1.7-2.3); Phosphorus 3.7 mg/dL (2.5-4.5)
--- NOTE | 2022-01-01 08:55 | PC.SOCIAL ---
IMM UPDATED IMM dated and initialed, copy given to patient and copy placed in chart
[2022-01-01] MEDS: metoprolol tartrate 25 mg Tablet 12.5 MG PO (09:10)
[2022-01-01] MEDS: pantoprazole DR 40 mg Tablet PO (09:10)
[2022-01-01] MEDS: citalopram 20 mg Tablet PO (09:10)
[2022-01-01] MEDS: sodium chlor 0.9% + KCl 20 mEq 20 MEQ/1,000 ML BAG 100 MEQ IV (09:15)
[2022-01-01 13:11] LABS: Creatine Phosphokinase 635 U/L (26-192)
--- NOTE | 2022-01-01 13:21 | PM.DCS ---
Discharge Providers Date of Admission: 12/29/21 21:58 Date of Discharge: January 01, 2022 Attending Provider at Admission: Rocío Daniel MD Attending Provider at Discharge: Rio Perry Primary Care Provider: NINA Jiang Diagnoses at Discharge Discharge Diagnosis (1) Altered mental status: Status: Acute (2) Urinary tract infection: Status: Acute (3) Rhabdomyolysis: Status: Acute (4) Recurrent falls: Status: Acute (5) Hyperglycemia: Status: Acute Reason for Visit Reason for Visit: WEAKNESS S/P FALL Hospital Course Hospital Course Pleasant 81-year-old lady found down at home by family, confused, after a likely fall, on presentation also with rhabdomyolysis, CK of over 3000. COVID PCR was negative. Was started on Rocephin for urinary tract infection, eventually urine growing E. coli resistant to several antibiotics. As it is sensitive to cephalosporins, she will complete the course with cefdinir. Received gentle IV hydration. Hydrochlorothiazide was held. As was statin. Follow-up CK6 135. Please reassess CK, renal function. Hold statin for now. HCTZ for now is discontinued to reduce transfer dehydration, recurrence of rhabdomyolysis. Hyperglycemia noted but was thought to be secondary to possibly the urinary tract infection. A1c was checked and was 5.6. Additional assessment included echocardiogram, with finding of normal ejection fraction, normal diastolic function, normal right ventricle size and function. As well as carotid Doppler, which showed mild to moderate diffuse plaques at the common carotid and internal carotid artery on the right side with Doppler features suggesting less than 50% stenosis. Mild diffuse plaque at the bifurcation and the internal carotid artery on the left side. With recurrent falls recently, would benefit from additional rehabilitation. Physical Exam Narrative: Sitting up in bed, eating lunch. Const: COMMON NORMALS: alert GENERAL APPEARANCE: cooperative ORIENTATION/CONSCIOUSNESS: Yes awake HENMT: COMMON NORMALS: normocephalic, EAC's normal, Normal external nose present and moist oral mucous membranes HEAD & SCALP: normocephalic NOSE: Normal external nose present EXTERNAL AUDITORY CANAL: EAC's normal Neck/C-Spine: COMMON NORMALS: no meningeal signs Chest: CHEST: Yes Symmetrical chest wall rise Resp: COMMON NORMALS: clear to auscultation bilaterally AUSCULTATION: clear to auscultation bilaterally Cardio: COMMON NORMALS: regular rate, regular rhythm and No murmurs present (Cardio) RATE: regular rate RHYTHM: regular rhythm GI: COMMON NORMALS: Normal to inspection, nondistended, normoactive bowel sounds present, Soft to palpation and non-tender PALPATION: Yes Soft to palpation Extremity: COMMON NORMALS: no pedal edema OTHER: Small bruise R med forearm. No pain on passive or active ROM R elbow. Small bruises post/outer L forearm Neuro: COMMON NORMALS: moves all extremities SENSORIUM/ORIENTATION: Yes alert MENINGEAL SIGNS: Yes no meningeal signs Psych: COMMON NORMALS: mental status grossly normal Skin: COMMON NORMALS: no wounds RASHES: no rashes Urinary Catheter Management: Chaudhry: Cath Placed During This Visit: yes Reason for Continuing Indwelling Catheter: Other Urinary Catheter Date of Insertion: 12/29/21 Urinary Catheter Time of Insertion: 19:48 Discharge Data Studies Completed and Pending Completed Studies During Hospitalization Category Date Time Status CT head wo con* [id number] Urgent Cat Scan 12/29/21 19:03 Completed XR chest 1V portable [id number] Stat Exams 12/29/21 19:00 Completed XR hip RT 2-3V wo/w pel* [id number] Stat Exams 12/29/21 19:03 Completed XR knee RT 1-2V [id number] Stat Exams 12/29/21 19:03 Completed CV carotid duplex BI* [id number] Routine Ultrasound 12/30/21 00:52 Completed CV. echo complete* [id number] Routine Ultrasound 12/30/21 00:52 Completed Pending at discharge Category Date Time Status Blood Culture Stat Lab 12/29/21 21:47 Results Magnesium AM LABS Lab 01/02/22 04:00 Ordered Phosphorus AM LABS Lab 01/02/22 04:00 Ordered Radiology Impressions Chest X-Ray 12/29/21 19:00 IMPRESSION: No acute chest abnormality identified. Head CT 12/29/21 19:03 IMPRESSION: Negative for acute intracranial abnormality. Hip/Pelvis X-Ray 12/29/21 19:03 IMPRESSION: No acute findings. Knee X-Ray 12/29/21 19:03 IMPRESSION: Negative for acute right knee joint abnormality. Laboratory Results WBC 8.0 10^3/uL (4.0-10.0) 12/31/21 04:24 RBC 3.64 10^6/uL (4.1-5.3) L 12/31/21 04:24 Hgb 11.8 g/dL (11.5-15.3) 12/31/21 04:24 Hct 34.8 % (37.0-47.0) L 12/31/21 04:24 MCV 95.6 fl (81-99) 12/31/21 04:24 MCH 32.4 pg (28.0-34.0) 12/31/21 04:24 MCHC 33.9 g/dL (30.0-36.0) 12/31/21 04:24 RDW 12.3 % (12.1-15.1) 12/31/21 04:24 Plt Count 199 10^3/cmm (130-400) 12/31/21 04:24 MPV 11.0 fL (7.4-10.4) H 12/31/21 04:24 Neut % (Auto) 66.7 % 12/31/21 04:24 Lymph % (Auto) 20.2 % 12/31/21 04:24 [place] % (Auto) 8.1 % 12/31/21 04:24 Eos % (Auto) 3.6 % 12/31/21 04:24 Baso % (Auto) 1.0 % 12/31/21 04:24 Neut # (Auto) 5.35 10^3/uL (1.8-7.7) 12/31/21 04:24 Lymph # (Auto) 1.6 10^3/uL (0.8-4.8) 12/31/21 04:24 [place] # (Auto) 0.7 10^3/uL (0.2-0.9) 12/31/21 04:24 Eos # (Auto) 0.3 10^3/uL (0.0-0.8) 12/31/21 04:24 Baso # (Auto) 0.1 10^3/uL (0.0-0.1) 12/31/21 04:24 Nucleated RBC % (auto) 0 % 12/31/21 04:24 Nucleated RBCs # 0.0 /100WBC 12/31/21 04:24 PT 15.30 SECONDS (12.1-14.9) H 12/30/21 07:10 INR 1.18 (0.8-1.2) 12/30/21 07:10 Specimen Type Arterial 12/29/21 19:25 Sample Site Radial, right 12/29/21 19:25 ABG pH 7.47 (7.35-7.45) H 12/29/21 19:25 ABG pCO2 35.8 mmHg (35-45) 12/29/21 19:25 ABG pO2 149.0 mmHg (80.0-100.0) H 12/29/21 19:25 ABG HCO3 26.2 mmol/L (22-26) H 12/29/21 19:25 ABG Base Excess 2.7 mmol/L (-2.0-2.0) H 12/29/21 19:25 David Test Pos 12/29/21 19:25 Hematocrit 41.2 % (37-47) 12/29/21 19:25 O2 Delivery Device None 12/29/21 19:25 Specimen Drawn By Khang 12/29/21 19:25 Assembly Machine Operator ID Khang 12/29/21 19:25 Sodium 139 mmol/L (136-145) 12/31/21 04:24 Potassium 4.3 mmol/L (3.5-5.1) 12/31/21 04:24 Chloride 108 mmol/L (98-107) H 12/31/21 04:24 Carbon Dioxide 22 mmol/L (22-29) 12/31/21 04:24 Anion Gap 13.3 (5-19) 12/31/21 04:24 BUN 11 mg/dL (8-23) 12/31/21 04:24 Creatinine 0.7 mg/dL (0.5-0.9) 12/31/21 04:24 GFR Calculation Not Reportable 12/31/21 04:24 Glucose 84 mg/dL (65-115) 12/31/21 04:24 Estimat Average Glucose 114 12/30/21 07:10 Hemoglobin A1c 5.6 % (4.0-6.0) 12/30/21 07:10 Calculated Osmolality 287 mOsm/kg (285-295) 12/31/21 04:24 Lactic Acid 3.8 mmol/L (0.5-2.2) H 12/29/21 19:06 Lactic Acid (Sepsis) 1.1 mmol/L (0.5-2.2) 12/29/21 21:40 Calcium 8.4 mg/dL (8.5-10.5) L 12/31/21 04:24 Phosphorus 3.7 mg/dL (2.5-4.5) 01/01/22 05:32 Magnesium 2.1 mg/dL (1.7-2.3) 01/01/22 05:32 Total Bilirubin 0.5 mg/dL (0.15-1.2) 12/31/21 04:24 AST 92 U/L (0-32) H 12/31/21 04:24 ALT 34 U/L (0-33) H 12/31/21 04:24 Alkaline Phosphatase 52 IU/L (35-105) 12/31/21 04:24 Ammonia 28 umol/L (11-51) 12/29/21 19:06 Creatine Kinase 635 U/L (26-192) H* 01/01/22 05:32 Troponin T Baseline 19 ng/L (0-10) H 12/30/21 01:20 Troponin T 120 Minute 21.77 ng/L (0-10) H 12/30/21 03:20 Delta Troponin T 2.77 ABS# (0-10) 12/30/21 03:20 Troponin T Hi Sens 6Hr 21.51 ng/L (0-10) H 12/30/21 07:10 Troponin T Hi Sens 6Hr Delta 2.51 ng/L (0-12) 12/30/21 07:10 C-Reactive Protein 8.8 mg/L (0.0-4.9) H 12/30/21 07:10 NT-Pro-B Natriuret Pep 789 pg/mL (0-450) H 12/30/21 07:10 Total Protein 6.0 g/dL (6.6-8.7) L 12/31/21 04:24 Albumin 3.1 g/dL (3.5-5.2) L 12/31/21 04:24 Globulin 2.9 g/dL (1.3-4.6) 12/31/21 04:24 Triglycerides 117 mg/dL (0-150) 12/30/21 07:10 Cholesterol 125 mg/dL (0-200) 12/30/21 07:10 LDL Cholesterol, Calc 58 mg/dL (50-129) 12/30/21 07:10 HDL Cholesterol 44 mg/dL (60-100) L 12/30/21 07:10 LDL/HDL Ratio 1.32 RATIO (0.00-3.22) 12/30/21 07:10 Cholesterol/HDL Ratio 2.84 mg/dL (0.0-4.40) 12/30/21 07:10 TSH 2.11 uIU/mL (0.27-4.20) 12/31/21 04:24 Urine Color Yellow (Yellow) 12/29/21 19:45 Urine Appearance Hazy (CLEAR) A 12/29/21 19:45 Urine pH 7 (5-7) 12/29/21 19:45 Ur Specific [place] 1.010 (1.005-1.030) 12/29/21 19:45 Urine Protein 1+ (Negative) H 12/29/21 19:45 Urine Glucose (UA) Norm (Normal) 12/29/21 19:45 Urine Ketones 1+ (Negative) H 12/29/21 19:45 Urine Blood 3+ (Negative) H 12/29/21 19:45 Urine Nitrate Negative (Negative) 12/29/21 19:45 Urine Bilirubin Neg (Negative) 12/29/21 19:45 Urine Urobilinogen Norm mg/dL (Negative) 12/29/21 19:45 Ur Leukocyte Esterase 2+ (Negative) H 12/29/21 19:45 Urine RBC 0-4 /hpf (0-2) H 12/29/21 19:45 Urine WBC 40-55 /hpf (0-5) H 12/29/21 19:45 Ur Squamous Epith Cells 0-4 /hpf (0-5) H 12/29/21 19:45 Amorphous Sediment Not Reportable 12/29/21 19:45 Urine Bacteria 3+ /hpf (NONE) H 12/29/21 19:45 Coronavirus 229E (PCR) Not detected (NOT DETECT) 12/29/21 18:42 SARS-CoV-2 (PCR) Not detected (NOT DETECT) 12/29/21 18:42 Vitals Last Vital Signs Temp 98.3 F 01/01/22 12:00 Pulse 65 01/01/22 12:00 Resp 12 01/01/22 12:00 BP 130/73 01/01/22 12:00 Pulse Ox 94 01/01/22 12:00 Discharge Plan Discharge Patient Disposition: Xfer SNF Condition: Stable Prescriptions: New cefdinir 300 mg capsule 300 mg PO BID 10 Days Qty: 20 0RF Continued tramadol 50 mg tablet 50 mg PO Q6H PRN (Reason: Pain) 0RF Rx Instructions: 1-2 tab q6h metoprolol tartrate 25 mg tablet 12.5 mg PO BID 0RF aspirin 325 mg tablet 325 mg PO QDAY 0RF calcium carbonate [Calcium 500] 500 mg calcium (1,250 mg) tablet 500 mg PO DAILY 0RF fexofenadine 180 mg tablet 180 mg PO DAILY 0RF magnesium oxide,aspartate,citr 400 mg magnesium capsule 400 mg PO DAILY 0RF prenat.vits,james,tdd-agnx-ernof 1 tab PO DAILY 0RF ferrous sulfate [Feosol] 325 mg (65 mg iron) tablet 65 mg PO DAILY 0RF ergocalciferol (vitamin D2) 2,500 unit capsule 2,500 unit PO DAILY 0RF citalopram [Celexa] 40 mg tablet 40 mg PO DAILY 0RF ropinirole 0.25 mg tablet 0.25 mg PO BEDTIME 0RF Rx Instructions: 1-2 tab bedtime (DME) DME: Walker Unit See Rx Instructions .ROUTE .MEDSUPPLY Qty: 1 0RF Rx Instructions: FRONT WHEELED WALKER -- Use As directed acetaminophen [Tylenol] 325 mg Tablet 650 mg PO QID PRN (Reason: Pain) 0RF Held simvastatin 20 mg tablet 20 mg PO BEDTIME 0RF Hold Instructions: Resume on 01/15/22. Discontinued hydrochlorothiazide 12.5 mg Tablet 12.5 mg PO EVERY OTHER DAY 0RF Discharge Orders: Discharge Order (Routine); Ordered 01/01/22 Ordered By: Rio Perry Referrals: Radha Piper, [facility]OKER [Primary Care Provider] - 4-7 days Discharge Diet: Advance as tolerated Discharge Activity: As per PT/OT instructions Patient Instructions: Urinary Tract Infection in Women (GEN), Rhabdomyolysis (GEN), Opioid Safety Activity Restrictions/Additional Instructions: Please recheck CK and renal function in 4-5 days for follow-up after rhabdomyolysis. Please hold statin the next 2 weeks. Please discontinue HCTZ. Please follow up regarding carotid artery atherosclerosis with your primary doctor. Discharge Attestations Time Spent in Discharge Care*: greater than 30 min Quality Metrics Clinical Quality Measures [ No reported AMI, CVA or VTE this stay] Coding Level of Care Code Acute Chg FW DC note Diagnoses Altered mental status R41.82 Urinary tract infection N39.0 Rhabdomyolysis M62.82 Recurrent falls R29.6 Hyperglycemia R73.9
== END 2022-01-01 18:07 | disposition skilled nursing facility (03) | DRG 690 ==
LOC: ER 21:57 → MEDSURG 22:18
PROVIDERS: Family Medicine; Admitting Provider Hospitalist; Emergency Provider Emergency Medicine; PCP Nurse Practitioner Family; Visit Provider Internal Medicine
DX: N39.0 Urinary tract infection, site not specified (principal); Z16.30 Resistance to unspecified antimicrobial drugs; M62.82 Rhabdomyolysis; B96.20 Unspecified Escherichia coli [E. coli] as the cause of diseases classified elsewhere; R41.82 Altered mental status, unspecified; R29.6 Repeated falls; R73.9 Hyperglycemia, unspecified; I10 Essential (primary) hypertension; F32.A Depression, unspecified; E78.5 Hyperlipidemia, unspecified
CPT/HCPCS: 36415; 36600; 51702; 70450; 71045; 73502; 73560; 80053; 80061; 81001; 82140; 82550; 82803; 83036; 83605; 83735; 83880; 84100; 84443; 84484; 85025; 85610; 86140; 87040; 87077; 87086; 87186; 87635; 93005; 93306; 93880; 96361; 96365; 96372; 97110; 97161; 97165; 97530; 97535; 99285; J0696; J1650; J7030

== ENCOUNTER → 2022-01-08 08:43 | Outpatient (BNVA) | payer MEDICARE, MEDICAID, SELFPAY | PROVIDERS: PCP Nurse Practitioner Family; Visit Provider Internal Medicine Cardiovascular Disease | DX: R55 Syncope and collapse (principal); I48.91 Unspecified atrial fibrillation | CPT/HCPCS: 93229 ==

== ENCOUNTER → 2022-08-27 09:29 | Outpatient (BNVA) | payer MEDICARE, MEDICAID, SELFPAY | PROVIDERS: PCP Nurse Practitioner Family; Visit Provider Internal Medicine Cardiovascular Disease | DX: I48.91 Unspecified atrial fibrillation (principal); Z79.01 Long term (current) use of anticoagulants; I10 Essential (primary) hypertension; E78.5 Hyperlipidemia, unspecified; G25.0 Essential tremor | CPT/HCPCS: 99204; Q3014 ==

== ENCOUNTER → 2023-02-25 10:53 | Outpatient (BNVA) | payer MEDICARE, MEDICAID, SELFPAY | PROVIDERS: PCP Family Medicine; Visit Provider Internal Medicine Cardiovascular Disease | DX: I48.91 Unspecified atrial fibrillation (principal); I10 Essential (primary) hypertension; E78.5 Hyperlipidemia, unspecified; G25.0 Essential tremor; Z79.01 Long term (current) use of anticoagulants | CPT/HCPCS: 99214 ==

== ENCOUNTER → 2023-09-03 10:17 | Outpatient (BNVA) | payer MEDICARE, MEDICAID, SELFPAY | PROVIDERS: PCP Family Medicine; Visit Provider Nurse Practitioner Family | DX: I10 Essential (primary) hypertension (principal); I48.20 Chronic atrial fibrillation, unspecified; Z79.01 Long term (current) use of anticoagulants | CPT/HCPCS: 99214 ==

== ENCOUNTER → 2024-03-08 14:59 | Outpatient (BNVA) | payer MEDICARE, MEDICAID, SELFPAY | PROVIDERS: PCP Family Medicine; Visit Provider Internal Medicine | DX: I48.20 Chronic atrial fibrillation, unspecified (principal); I10 Essential (primary) hypertension; E78.5 Hyperlipidemia, unspecified; G25.0 Essential tremor; Z79.01 Long term (current) use of anticoagulants | CPT/HCPCS: 99214 ==

== ENCOUNTER 2024-04-08 08:46 | Outpatient (CLI) | payer MEDICARE, MEDICAID, SELFPAY ==
--- NOTE | 2024-04-08 09:15 | USCV_ITS ---
Heidi Banuelos Age: 84 Gender: F : 1940 Exam Date: 04/08/2024 08:56 Ordering Phys: Seven Fu M.D ([email or web address]) Technologist: Kathy Walden Exam Location: [facility] [place] Indication: SOB Chest Pain BP: / HR: 66 Rhythm: Sinus Technical Quality: Adequate MEASUREMENTS (Male / Female) Normal Values 2D ECHO LV Diastolic Diameter PLAX 3.4 cm 4.2 - 5.9 / 3.9 - 5.3 cm IVS Diastolic Thickness 0.9 cm 0.6 - 1.0 / 0.6 - 0.9 cm IVS Systolic Thickness 1.6 cm LVPW Diastolic Thickness 0.9 cm 0.6 - 1.0 / 0.6 - 0.9 cm LVPW Systolic Thickness 1.2 cm LVOT Diameter 2.0 cm LV Ejection Fraction 2D Teich 52.3 % LV Ejection Fraction MOD 4C 60.6 % LV Ejection Fraction MOD 2C 61.2 % LV Ejection Fraction 2C AL 62.9 % LA Diameter 1.5 cm RA Systolic Volume 4C AL 26.6 ml RA Systolic Volume 4C MOD 24.9 ml LA Sys Volume AL 12.3 cm cubed LA Sys Volume Index AL 5.9 cm cubed/m squared Aorta at Sinotubular Diameter 2.5 cm IVC Diameter 2.5 cm M-MODE LA Ao Ratio MM 1.0 AV Cusp Separation MM 2.1 cm DOPPLER AV Peak Velocity 144.0 cm/s LVOT Peak Velocity 120.0 cm/s AV Area Cont Eq vti 2.8 cm squared AV Area Cont Eq pk 2.6 cm squared MV Area PHT 3.0 cm squared Mitral E to A Ratio 1.1 TV Peak Velocity 141.7 cm/s TR Peak Velocity 205.0 cm/s TR Peak Gradient 16.8 mmHg TR Mean Velocity 134.0 cm/s TR Mean Gradient 9.2 mmHg TR Velocity Time Integral 58.4 cm TV Peak E Velocity 59.0 cm/s Right Atrial Pressure 3.0 mmHg Pulmonary Artery Systolic Pressu 19.8 mmHg FINDINGS Left Ventricle Normal left ventricular cavity size. Normal left ventricular systolic function. Left ventricular ejection fraction is estimated at 60 %. Grade I/IV diastolic dysfunction (abnormal relaxation filling pattern), normal to mildly elevated filling pressures. Right Ventricle The right ventricle is normal in size and function. Right Atrium The right atrium is normal in size. Left Atrium The left atrium is normal in size. Mitral Valve Mildly thickened mitral valve. No mitral valve stenosis. Trace mitral valve regurgitation. Aortic Valve Moderate aortic valve calcification. No aortic valve stenosis. Trace aortic valve regurgitation. Tricuspid Valve Structurally normal tricuspid valve without significant stenosis or regurgitation. Pulmonary artery systolic pressure is normal. Pulmonic Valve Structurally normal pulmonic valve without significant stenosis. There is no pulmonic regurgitation. Pericardium Normal pericardium without effusion. Aorta Normal ascending aorta dimension. IVC The inferior vena cava appears normal. CONCLUSIONS Normal left ventricular cavity size. Normal left ventricular systolic function. Left ventricular ejection fraction is estimated at 60 %. Grade I/IV diastolic dysfunction (abnormal relaxation filling pattern), normal to mildly elevated filling pressures. No significant valve abnormalities. Pulmonary artery systolic pressure is within normal limits. Right atrial pressure is around 5 mm of mercury. Ramon Ji MD (Electronically Signed) Final Date: 17 April 2024 11:51 S
== END 2024-04-08 08:47 | disposition home or self-care (01) ==
LOC: RAD 08:46
PROVIDERS: PCP Family Medicine; Visit Provider Internal Medicine
DX: I50.30 Unspecified diastolic (congestive) heart failure (principal); I35.2 Nonrheumatic aortic (valve) stenosis with insufficiency; R07.9 Chest pain, unspecified; R06.02 Shortness of breath; I48.20 Chronic atrial fibrillation, unspecified
CPT/HCPCS: 93306

== ENCOUNTER → 2025-05-05 14:33 | Outpatient (BNVA) | payer MEDICARE, MEDICAID, SELFPAY | PROVIDERS: PCP Electrodiagnostic Medicine; Visit Provider Podiatrist Foot & Ankle Surgery | DX: I73.9 Peripheral vascular disease, unspecified (principal); L60.3 Nail dystrophy; L84 Corns and callosities | CPT/HCPCS: 11055; 11721; 99203 ==

== ENCOUNTER 2025-07-07 14:11 | Inpatient (IN) | payer MEDICARE, MEDICAID, SELFPAY ==
[2025-07-07] VITALS (11 sets, daily range): BP systolic 107–174; BP diastolic 61–97; PULSE 67–96; RESP 17–20; TEMP 36.7–36.8; O2SAT 93–97; BMI 37.5
--- OUTSIDE RECORDS SUMMARY | 2025-07-07 14:14 | XMS_ITS | Data Portability ---
Author Organization [facility], [facility] Address [address] [place] [address] Assessment No assessment recorded. Plan of Treatment Reminders Order Date Submit Date Provider Last Modified By Organization Details Last Modified Time Details Appointments None recorded. Lab None recorded. Referral None recorded. Procedures None recorded. Surgeries None recorded. Imaging None recorded. Medication Orders hydrochloro thiazide 25 mg tablet [address] [facility], [address] [place] [address], [address], 11:26:08 Patient TargetsNo targets recorded. Patient InstructionsNo instructions recorded. Reason for Referral None Reported. Problems Name Problem SNOMED Code Status Onset Date Resolution Date Notes Provider Name and Address Organization Details Recorded Time Atrial fibrillation 38931655 Active 2024 [facility] Muscle weakness 93726929 Active 2024 Anjana mckee [facility] L[facility]CPatrick 17:54:50 Cognitive function finding 689032104 Active 2024 [facility] 17:55:39 General unsteadiness 694792329 Active 2024 [facility] 17:56:02 Chronic pain 93411765 Active 2024 Anjana mckee, [facility] 17:56:14 Vitamin deficiency 31788161 Active 2024 Anjana Zayas null, [facility] 17:56:23 Hyperlipidemia 28201411 Active 2024 Anjana Zayas [facility], [facility] 17:56:33 Depressive disorder 69165085 Active 2024 Anjana Zayas [facility], [facility] 17:56:39 Restless legs syndrome 49840452 Active 2024 Anjana Zayas [facility] 17:56:46 Recurrent falls 951609734 Active 2024 Anjana Zayas [facility], [facility] 5 17:58:07 Essential hypertension 76135249 Active 2024 Anjana Zayas [facility] 17:58:19 Allergic rhinitis 84284180 Active 2024 Anjana Zayas [facility] 17:58:41 Edema of lower extremity 062253720 Active [address], [phone], [facility] 5 11:25:04 Chronic diastolic heart failure 568709345 Active [address], [address], [facility] 5 11:25:04 Problem Notes None recorded. Medical Equipment None Reported. Allergies Allergen ID Allergen Name Allergen Category Reaction Reaction Severity Criticality Documentation Date Start Date Code Code System Note Provider Name and Address Organization Details Recorded Time 69806 codeine medicatio n Not available Not available Not available 08/12/2024 2670 RxNorm Anjana mckee [facility] 17:51:34 93514 Product containin g penicilli n (product) medicatio n Not available Not available Not available 08/12/2024 70381 8001 SNOMED Anjana mckee [facility] 17:51:38 Medications Name Sig Start Date Stop Date Status Note LastModified by Organization Details LastModified Time acetaminophe n 325 mg tablet Take 2 tablets twice a day by oral route. active Not Available Not Available No t Available fexofenadine 180 mg tablet Take 1 tablet every day by oral route in the morning. active Not Available Not Available No t Available aspirin 81 mg tablet,delay ed release Take 1 tablet every day by oral route. active Not Available Not Available No t Available tramadol 50 mg tablet Give one tablet by mouth every day for pain. May give 1 or 2 tablets by mouth every 6 hours as needed 2024 active Not Available Not Available Not Avai lable ropinirole 0.25 mg tablet Take 1 tablet every day by oral route at bedtime. active Not Available Not Available No t Available simvastatin 20 mg tablet Take 1 tablet every day by oral route. active Not Available Not Available No t Available calcium 500 mg (as calcium carbonate 1,250 mg) chewable tablet Take 1 tablet every day by oral route. active Not Available Not Available No t Available hydrochlorot hiazide 25 mg tablet Take 1 tablet every day by oral route in the morning for 30 days, for edema. 2024 active Not Available Not Available Not Avai lable fluticasone propionate 50 mcg/actuatio n nasal spray,suspen mykel [place] 2 sprays every day by intranasal route. active Not Available Not Available No t Available metoprolol tartrate 25 mg tablet Take 0.5 tablets twice a day by oral route. active Not Available Not Available No t Available Eliquis 5 mg tablet Take 1 tablet twice a day by oral route. active Not Available Not Available No t Available acetaminophe n 325 mg capsule Take 2 capsules every 4 hours by oral route as needed. active Not Available Not Available N ot Available magnesium 400 mg (as magnesium oxide) tablet Take 1 tablet every day by oral route in the morning. active Not Available Not Available No t Available Vitals Date Recorded Body height Body mass index (BMI) Body weight Oxygen saturation Heart rate Respiratory rate Body temperature Systolic And Diastolic Provider Name and Address Organization Details Last Updated DateTime 5 152.4 cm 41.4 kg/m2 21783.5 8 g 94 % 86 /min 20 /min 98.2 [degF] 133/80 mm[Hg] [facility] 5 11:27:07 Date Recorded Body height Body mass index (BMI) Body weight Oxygen saturation Heart rate Respiratory rate Body temperature Systolic And Diastolic Provider Name and Address Organization Details Last Updated DateTime 5 152.4 cm 41.2 kg/m2 65383.9 9 g 97 % 64 /min 20 /min 98.2 [degF] 112/62 mm[Hg] [facility] 5 08:17:24 Date Recorded Body height Body mass index (BMI) Body weight Oxygen saturation Heart rate Respiratory rate Body temperature Systolic And Diastolic Provider Name and Address Organization Details Last Updated DateTime 5 152.4 cm 41.6 kg/m2 04045.1 7 g 92 % 70 /min 18 /min 98.1 [degF] 105/67 mm[Hg] [facility] 5 08:43:23 Date Recorded Body height Body mass index (BMI) Body weight Oxygen saturation Heart rate Respiratory rate Body temperature Systolic And Diastolic Provider Name and Address Organization Details Last Updated DateTime 5 152.4 cm 40.8 kg/m2 49220.8 1 g 97 % 75 /min 20 /min 97.4 [degF] 104/60 mm[Hg] [facility] 5 08:26:32 Date Recorded Body height Body mass index (BMI) Body weight Oxygen saturation Heart rate Respiratory rate Body temperature Systolic And Diastolic Provider Name and Address Organization Details Last Updated DateTime 5 152.4 cm 40.8 kg/m2 33202.8 1 g 96 % 76 /min 17 /min 98.2 [degF] 106/66 mm[Hg] Anjanagera Zayas [facility] 5 08:32:03 Social History None recorded. Functional Status None recorded. Mental Status None recorded. Family History Nothing Reported. Medical History No medical history recorded. Gynecological HistoryNo gynecological history recorded. Obstetrics History GPAL:G 0 P 0 0 0 0 Immunizations Vaccine Type Date Status Note Provider Nam e and Address Organization Details Recorded Time Influenza, split virus, quadrivalent, preservative 9 [facility]/13/2024 12:39:29 Influenza, split virus, quadrivalent, preservative 0 completed Anjana Zayas [facility] 08/13/2024 12:39:29 COVID-19, mRNA, LNP-S, PF, 100 mcg/0.5mL dose or 50 mcg/0.25mL dose 2 completed Anjanahope Zayas [facility] 08/13/2024 12:39:29 COVID-19, mRNA, LNP-S, PF, 100 mcg/0.5mL dose or 50 mcg/0.25mL dose 2 completed Anjanahope Zayas [facility] 08/13/2024 12:39:29 Tdap 4 completed Anjana Zayas [facility] 08/13/2024 12:39:29 Influenza, split virus, trivalent, preservative 1 completed Anjana Zayas [facility] 08/13/2024 12:39:29 Past Encounters Encounter ID Performer Location Encounter Start Date Encounter Closed Date Diagnosis/Indication Diagnosis SNOMED-CT Code Diagnosis ICD10 Code Diagnosis IMO Codes Diagnosis Note [id number] Jeovany Patel DO [facility]) [address] [place] [phone] 08/13/2024 08:55:00 08/31/2024 07:06:22 Atrial fibrillation 55243973 I48.91 Continue Eliquis. Chronic pain 14999341 G8 9.29 Continue Tramadol. Cognitive function finding 196569037 R41.89 Depressive disorder 4494 9007 F32.A Mood stable. Essential hypertension 46914532 I10 Stable, continue Metoprolol . Recurrent falls 79500229 2 R29.6 08/13/24: no recent falls. Restless l egs syndrome 34753781 G25.81 Continue Ropinirole . Hyperlipidemia 36437483 E78.5 Continue Simvastati n, lipids every 6 months. [id number] Jeovany Patel DO [facility] ([facility]) [address] [place] [phone] 10/08/2024 08:56:58 10/09/2024 06:31:43 Atrial fibrillation 56244496 I48.91 Continue Eliquis. Essential hypertension 69069637 I10 Stable, continue Metoprolol . General unsteadiness 271 683254 R26.81 Ambulatory with walker, does not use w/c. [id number] Jeovany Patel DO [facility] ([facility]) [address] [place] [phone] 12/10/2024 08:59:34 12/20/2024 10:50:39 Atrial fibrillation 38017281 I48.91 Continue Eliquis. Chronic pain 75775539 G8 9.29 Continue Tramadol. Pain in left foot 245337 9237 98298 M79.672 399421 left foot XR today. Morbid obesity 016402563 E66.01 01212 monitoring weight. Depressive disorder 6155 8527 F32.A Mood stable. Essential hypertension 82121268 I10 Stable, continue Metoprolol . General unsteadiness 271 035919 R26.81 Ambulatory with walker, does not use w/c. Hyperlipidemia 76167223 E78.5 Continue Simvastati n, lipids every 6 months. Recurrent falls 02190575 2 R29.6 08/13/24: no recent falls. Restless l egs syndrome 96776472 G25.81 Continue Ropinirole . [id number] Jeovany Patel DO [facility] ([facility]) [address] [place] [phone] 02/04/2025 08:09:19 2025 10:20:12 Depressive disorder 86808515 F32.A Mood stable. continue meds Atrial fibrillation 4943 6004 I48.91 Continue Eliquis, metoprolol Recurrent falls 42528126 2 R29.6 no recent falls. [id number] Jeovany Patel DO [facility] ([facility]) [address] [place] [phone] 04/01/2025 08:06:28 04/05/2025 16:09:07 Depressive disorder 91995332 F32.A Mood stable. continue meds Atrial fibrillation 4943 6004 I48.91 Continue Eliquis, metoprolol Recurrent falls 47030670 2 R29.6 no recent falls. Essential hypertension 47701270 I10 Stable, continue Metoprolol . 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 Pt is on Asa and Eliquis, to stop Asa 04/25/25, skip Eliquis am dose 04/29/25, resume evening dose 04/29/25, resume Asa 05/01/25. [place] to check with clinic and see if they have cautery or bovi pen. [id number] Jeovany Patel DO [facility] ([facility]) [address] [place] [phone] 06/24/2025 08:06:02 06/27/2025 16:24:18 Depressive disorder 52965223 F32.A Mood stable. continue meds Atrial fibrillation 4943 6004 I48.91 Continue Eliquis, metoprolol Recurrent falls 66899317 2 R29.6 no recent falls. Essential hypertension 71373755 I10 06/24/25: BP running low, taking Metoprolol 12.5mg BID, continue current tx, f/u 1 week. Edema of l ower extremity 633457415 R60.0 73736 06/24/25: Start HCTZ 25mg each am. F/u 1 week. Chronic di astolic heart failure 909636371 I50.32 [id number] Per Echo with [facility] 03/2024. [id number] Jeovany Patel DO [facility] ([facility]) [address] [place] [phone] 07/01/2025 08:02:33 07/04/2025 14:49:32 Essential hypertension 39231176 I10 07/01/25: Stable, continue current tx. 5: BP running low, taking Metoprolol 12.5mg BID, continue current tx, f/u 1 week. Edema of l ower extremity 029939687 R60.0 23868 07/01/25: Improved, continue HCTZ 25mg each am. 5: Start HCTZ 25mg each am. F/u 1 week. Health Concerns Section Related Observation LastModified by Organization Detai ls LastModified Time None Recorded Concern Status LastModified by Organization Details LastModified Time None Recorded Advance Directives Directive None Recorded Payers Insurance Date Sequence Insurance Name Policy Number Policy Remy Covered Member ID Remy Member ID Guarantor Name 06/23/2025 1 [place] Heidi I [place] [id number] Heidi I [place] 06/23/2025 2 [place] Heidi I Vin [id number] Heidi I Vin 06/23/2025 [place] - [facility] (MEDICARE) Heidi I Vin [id number] Heidi I [place] 06/23/2025 [place] [facility] [place] Heidi Banuelos [id number] Heidi Banuelos Notes Date Note Type Note Provider Name and Address Organization Details Recorded Time 02/04/2025 text/html ROS as noted in the HPI We are evaluating pt today [place] for routine f/u. Pt in their usual state and doing well. Mood is stable. Taking medications as prescribed, tolerating well. Jeovany Patel DO [address] [place] [address], [phone], [facility] 2025 10:16:26 04/01/2025 text/html ROS as noted in the HPI We are evaluating pt today [place] for routine f/u. Pt in their usual state and doing well. No concerns today. Jeovany Patel DO [address] [place] [address], [phone], [facility] 04/01/2025 11:19:56 04/22/2025 text/html ROS as noted in the HPI [place] today for skin concern on the left toe, [place] has been treating with skin prep. Jeovany Patel DO [address] [place] [address], [phone], [facility] 04/22/2025 11:07:08 06/24/2025 text/html ROS as noted in the HPI We are evaluating pt today [place] for routine f/u. Pt in their usual state and doing well. No concerns today. Lab 06/07/25: WBC 8.85, Hgb 12.6, glucose 161, Cr 0.8, BNP 31.9. BP 104/60, taking Metoprolol 12.5mg BID. Jeovany Patel DO [address] [place] [address], [phone], [facility] 06/24/2025 11:27:42 07/01/2025 text/html ROS as noted in the HPI We [place] today for f/u on BP and edema. Plan at last visit:essential [id number]/12/ 25: BP running low, taking Metoprolol 12.5mg BID, continue current tx, f/u 1 week.Lower extremity edema06/24/25: Start HCTZ 25mg each am. F/u 1 week. ======= BP running 106-120's/ 60-70's. Edema slightly improved with HCTZ, tolerating well. Jeovany Patel, DO [address] [place] [address], [phone], [facility], [place] 07/01/2025 10:44:40 OBGyn Episode No OBEpisode recorded.
--- OUTSIDE RECORDS SUMMARY | 2025-07-07 14:14 | XMS_ITS | Continuity of Care Document ---
Author Organization [facility] David Anderson, [facility] Address [address] [place] [address] Assessment No assessment recorded. Plan of Treatment Reminders Order Date Submit Date Provider Last Modified By Organization Details Last Modified Time Details Appointments None record ed. Lab None record ed. Referral None record ed. Procedures None record ed. Surgeries None record ed. Imaging None record ed. Medication Orders None record ed. Patient TargetsNo targets recorded. Patient InstructionsNo instructions recorded. Reason for Referral None Reported. Problems Name Problem SNOMED Code Status Onset Date Resolution Date Notes Provider Name and Address Organization Details Recorded Time Atrial fibrillation 01627369 Active 2024 Anjana mckee [facility] 17:54:40 Muscle weakness 04526699 Active 2024 Anjana mckee [facility] 17:54:50 Cognitive function finding 239848297 Active 2024 Anjana mckee [facility] 17:55:39 General unsteadiness 482834082 Active 2024 Anjana mckee [facility] 17:56:02 Chronic pain 39490001 Active 2024 Anjana mckee [facility] 17:56:14 Vitamin deficiency 27706864 Active 2024 Anjana mckee [facility] 17:56:23 Hyperlipidemia 26300919 [facility] 17:56:33 Depressive disorder 04517369 Active 2024 [facility] [place] 17:56:39 Restless legs syndrome 30050702 Active 2024 Anjana Zayas rylee, [facility] 17:56:46 Recurrent falls 304424913 Active 2024 [facility] 17:58:07 Essential hypertension 41448601 Active 2024 Anjanagera Robbinscharlee [facility] [place] 17:58:19 Allergic rhinitis 10561546 Active 2024 [facility]era [facility] 17:58:41 Edema of lower extremity 763147490 Active [address], [address], [facility] 5 11:25:04 Chronic diastolic heart failure 657078776 Active [address], [address], [facility] 5 11:25:04 Problem Notes None recorded. Medical Equipment None Reported. Allergies Allergen ID Allergen Name Allergen Category Reaction Reaction Severity Criticality Documentation Date Start Date Code Code System Note Provider Name and Address Organization Details Recorded Time 77949 codeine medicatio n Not available Not available Not available 08/12/2024 2670 RxNorm Anjana mckee [facility] 17:51:34 45278 Product containin g penicilli n (product) medicatio n Not available Not available Not available 08/12/2024 14240 8001 SNOMED Anjana mceke [facility] 17:51:38 Medications Name Sig Start [...] propionate 50 mcg/actuatio n nasal spray,suspen mykel [place] 2 sprays every day by intranasal route. [...] Updated DateTime 5 152.4 cm 41.6 kg/m2 19766.1 7 g 92 % 70 /min 18 /min 98.1 [degF] 105/67 mm[Hg] Anjana Zayas [facility] 5 08:43:23 Social History None recorded. Functional Status None recorded. Mental Status None recorded. Family History Nothing Reported. Medical History No medical history recorded. Gynecological HistoryNo gynecological history recorded. Obstetrics History GPAL:G 0 P 0 0 0 0 Immunizations Vaccine Type Date Status Note Provider Nam e and Address Organization Details Recorded Time Influenza, split virus, quadrivalent, preservative 9 completed [facility] 08/13/2024 12:39:29 Influenza, split virus, quadrivalent, preservative 0 completed [facility] [place] 08/13/2024 12:39:29 COVID-19, mRNA, LNP-S, PF, 100 mcg/0.5mL dose or 50 mcg/0.25mL dose 2 completed Anjana Zayas [facility] 08/13/2024 12:39:29 COVID-19, mRNA, LNP-S, PF, 100 mcg/0.5mL dose or 50 mcg/0.25mL dose 2 completed Anjana Zayas [facility] 08/13/2024 12:39:29 Tdap 4 completed Anjana Zayas [facility] 08/13/2024 12:39:29 Influenza, split virus, trivalent, preservative 1 [facility] 08/13/2024 12:39:29 Past Encounters Encounter ID Performer Location Encounter Start Date Encounter Closed Date Diagnosis/Indication Diagnosis SNOMED-CT Code Diagnosis ICD10 Code Diagnosis IMO Codes Diagnosis Note [id number] Jeovany Patel DO [facility] [address] [place] [address] 04/01/2025 08:06:28 04/05/2025 16:09:07 Depressive disorder 01184242 F32.A Mood stable. continue meds Atrial fibrillation 4943 6004 I48.91 Continue Eliquis, metoprolol Recurrent falls 39268324 2 R29.6 no recent falls. Essential hypertension 50027514 I10 Stable, continue Metoprolol . [id number] Jeovany Patel DO [facility] [address] [place] [address] 04/22/2025 08:08:17 04/27/2025 07:48:51 [place] of toe 85561709 L84 1207 04/22/25: Left second toe, will remove this next week, 04/29/25, 2% Lidocaine without Epi, 25g needle, 10blade, 15blade, suture tray. Pt is on Asa and Eliquis, to stop Asa 04/25/25, skip Eliquis am dose 04/29/25, resume evening dose 04/29/25, resume Asa 05/01/25. [place] to check with clinic and see if they have cautery or bovi pen. Health Concerns Section Related Observation LastModified by Organization Detai ls LastModified Time None Recorded Concern Status LastModified by Organization Details LastModified Time None Recorded Payers Encounter Date Sequence Insurance Name Policy Number Policy Remy Covered Member ID Remy Member ID Guarantor Name 04/22/2025 1 [place] Heidi I [place] [id number] Heidi I [place] 04/22/2025 2 [place] Heidi I [place] [id number] Heidi I Vin Notes Date Note Type Note Provider Name and Address Organization Details Recorded Time 04/22/2025 text/html ROS as noted in the HPI We are seeing pt in [place] today for skin concern on the left toe, [place] has been treating with skin prep. Jeovany Patel, DO [address] [place] [address], [phone], [facility] [place] [facility], David 04/22/2025 11:07:08 OBGyn Episode No OBEpisode recorded.
--- OUTSIDE RECORDS SUMMARY | 2025-07-07 14:14 | XMS_ITS | Continuity of Care Document ---
Author Organization [facility] David Anderson, [facility] ([facility]) Address [address] [place] [address] Assessment No assessment recorded. Plan of Treatment Reminders Order Date Submit Date Provider Last Modified By Organization Details Last Modified Time Details Appointments None recorded. Lab None recorded. Referral None recorded. Procedures None recorded. Surgeries None recorded. Imaging None recorded. Medication Orders hydrochloro thiazide 25 mg tablet [address] [facility], [address] [place] [address], [address], 11:26:08 Patient TargetsNo targets recorded. Patient InstructionsNo instructions recorded. Reason for Referral None Reported. Problems Name Problem SNOMED Code Status Onset Date Resolution Date Notes Provider Name and Address Organization Details Recorded Time Atrial fibrillation 46678488 Active 2024 [facility]:54[facility]40 Muscle weakness 13840458 Active 2024 Anjana mckee [facility] 17:54:50 Cognitive function finding 744084344 Active 2024 [facility] 17:55:39 General unsteadiness 274617374 Active 2024 [facility] 17:56:02 Chronic pain 55669723 Active 2024 Anjana Zayas [facility], [facility] 17:56:14 Vitamin deficiency 87243473 Active 2024 Anjana Zayas [facility], [facility] 17:56:23 Hyperlipidemia 60361348 Active 2024 Anjana Zayas [facility] 17:56:33 Depressive disorder 48078664 Active 2024 Anjana Zayas [facility] 17:56:39 Restless legs syndrome 07479208 Active 2024 Anjana Zayas [facility] 17:56:46 Recurrent falls 306877655 Active 2024 Anjana Zayas [facility] 17:58:07 Essential hypertension 85836786 Active 2024 Anjana Zayas [facility] 17:58:19 Allergic rhinitis 24381036 Active 2024 Anjana Zayas [facility] 17:58:41 Edema of lower extremity 984566648 Active [address], [address], [facility] 5 11:25:04 Chronic diastolic heart failure 736949766 Active [address], [address], [facility] 5 11:25:04 Problem Notes None recorded. Medical Equipment None Reported. Allergies Allergen ID Allergen Name Allergen Category Reaction Reaction Severity Criticality Documentation Date Start Date Code Code System Note Provider Name and Address Organization Details Recorded Time 87661 codeine medicatio n Not available Not available Not available 08/12/2024 2670 RxNorm Anjana mckee [facility] 17:51:34 14061 Product containin g penicilli n (product) medicatio n Not available Not available Not available 08/12/2024 58374 8001 SNOMED Anjana mckee [facility] 17:51:38 Medications Name Sig Start [...] propionate 50 mcg/actuatio n nasal spray,suspen mykel [place] 2 sprays every day by intranasal route. [...] Updated DateTime 5 152.4 cm 40.8 kg/m2 38659.8 1 g 97 % 75 /min 20 /min 97.4 [degF] 104/60 mm[Hg] Anjana Zayas [facility] 5 08:26:32 Social History None recorded. Functional Status None recorded. Mental Status None recorded. Family History Nothing Reported. Medical History No medical history recorded. Gynecological HistoryNo gynecological history recorded. Obstetrics History GPAL:G 0 P 0 0 0 0 Immunizations Vaccine Type Date Status Note Provider Nam e and Address Organization Details Recorded Time Influenza, split virus, quadrivalent, preservative 9 completed Anjana Zayas [facility] 08/13/2024 12:39:29 Influenza, split virus, quadrivalent, preservative 0 completed Anjana Zayas [facility] 08/13/2024 12:39:29 COVID-19, mRNA, LNP-S, PF, 100 mcg/0.5mL dose or 50 mcg/0.25mL dose 2 completed Anjana Zayas [facility] 08/13/2024 12:39:29 COVID-19, mRNA, LNP-S, PF, 100 mcg/0.5mL dose or 50 mcg/0.25mL dose 2 completed Anjana Zayas [facility] 08/13/2024 12:39:29 Tdap 4 completed Anjana Zayas null, [facility], David 08/13/2024 12:39:29 Influenza, split virus, trivalent, preservative 1 completed Anjana mckee [facility], David 08/13/2024 12:39:29 Past Encounters Encounter ID Performer Location Encounter Start Date Encounter Closed Date Diagnosis/Indication Diagnosis SNOMED-CT Code Diagnosis ICD10 Code Diagnosis IMO Codes Diagnosis Note [id number] eJovany Patel DO [facility] ([facility]) [address] [place] [address] 06/24/2025 08:06:02 06/27/2025 16:24:18 Depressive disorder 83273254 F32.A Mood stable. continue meds Atrial fibrillation 4943 6004 I48.91 Continue Eliquis, metoprolol Recurrent falls 81795284 2 R29.6 no recent falls. Essential hypertension 21209880 I10 06/24/25: BP running low, taking Metoprolol 12.5mg BID, continue current tx, f/u 1 week. Edema of l ower extremity 605353311 R60.0 61562 06/24/25: Start HCTZ 25mg each am. F/u 1 week. Chronic di astolic heart failure 298618920 I50.32 604600 Per Echo with [facility] 03/2024. Health Concerns Section Related Observation LastModified by Organization Detai ls LastModified Time None Recorded Concern Status LastModified by Organization Details LastModified Time None Recorded Payers Encounter Date Sequence Insurance Name Policy Number Policy Remy Covered Member ID Remy Member ID Guarantor Name 06/24/2025 1 [place] Heidi I [place] [id number] Heidi I Vin 06/24/2025 2 [place] Heidi I [place] [id number] Heidi I Vin Notes Date Note Type Note Provider Name and Address Organization Details Recorded Time 06/24/2025 text/html ROS as noted in the HPI We [facility] pt [facility] for [facility] f/u. Pt in their usual state and doing well. No concerns today. Lab 06/07/25: WBC 8.85, Hgb 12.6, glucose 161, Cr 0.8, BNP 31.9. BP 104/60, taking Metoprolol 12.5mg BID. Jeovany Patel, [address], [address], [facility], David 06/24/2025 11:27:42 OBGyn Episode No OBEpisode recorded.
--- OUTSIDE RECORDS SUMMARY | 2025-07-07 14:14 | XMS_ITS | Continuity of Care Document ---
Author Organization [facility] David Anderson, [facility] ([facility]) Address [address] [place] [address] Assessment No assessment recorded. Plan of Treatment [...] Address Organization Details Recorded Time Atrial fibrillation 83228360 Active 2024 Anjana mckee [facility] 17:54:40 Muscle weakness 50129719 Active 2024 Anjana mckee [facility] 17:54:50 Cognitive function finding 533294373 Active 2024 Anjana mckee [facility] 17:55:39 General unsteadiness 486222698 Active 2024 Anjana mckee [facility] 17:56:02 Chronic pain 77335157 Active 2024 Anjana mckee [facility] 17:56:14 Vitamin deficiency 11217723 Active 2024 Anjana mckee [facility] 17:56:23 Hyperlipidemia 22108586 Active 2024 [facility] 17:56:33 Depressive disorder 87317665 Active 2024 [facility] 17:56:39 Restless legs syndrome 25319840 Active 2024 Anjana Zayas rylee, [facility] 17:56:46 Recurrent falls 083242785 Active 2024 [facility] 17:58:07 Essential hypertension 82586587 Active 2024 Anjanagera Robbinscharlee [facility] 17:58:19 Allergic rhinitis 31148849 Active 2024 Anjanagera [facility]as [facility] 17:58:41 Edema of lower extremity 670926038 Active [address], [address], [facility] 5 11:25:04 Chronic diastolic heart failure 052760396 Active [address], [address], [facility] 5 11:25:04 Problem Notes None recorded. Medical Equipment None Reported. Allergies Allergen ID Allergen Name Allergen Category Reaction Reaction Severity Criticality Documentation Date Start Date Code Code System Note Provider Name and Address Organization Details Recorded Time 05795 codeine medicatio n Not available Not available Not available 08/12/2024 2670 RxNorm Anjana mckee [facility] 17:51:34 01801 Product containin g penicilli n (product) medicatio n Not available Not available Not available 08/12/2024 73992 8001 SNOMED Anjana mckee [facility] 17:51:38 Medications Name Sig Start [...] propionate 50 mcg/actuatio n nasal spray,suspen mykel [place] 2 sprays every day by intranasal route. [...] Updated DateTime 5 152.4 cm 40.8 kg/m2 31210.8 1 g 96 % 76 /min 17 /min 98.2 [degF] 106/66 mm[Hg] Anjana Zayas [facility] 5 08:32:03 Social History None recorded. Functional Status None recorded. Mental Status None recorded. Family History Nothing Reported. Medical History No medical history recorded. Gynecological HistoryNo gynecological history recorded. Obstetrics History GPAL:G 0 P 0 0 0 0 Immunizations Vaccine Type Date Status Note Provider Nam e and Address Organization Details Recorded Time Influenza, split virus, quadrivalent, preservative 9 completed [facility] 08/13/2024 12:39:29 Influenza, split virus, quadrivalent, preservative 0 completed [facility] 08/13/2024 12:39:29 COVID-19, mRNA, LNP-S, PF, 100 mcg/0.5mL dose or 50 mcg/0.25mL dose 2 completed Anjana Zayas [facility] 08/13/2024 12:39:29 COVID-19, mRNA, LNP-S, PF, 100 mcg/0.5mL dose or 50 mcg/0.25mL dose 2 completed Anjana Zayas [facility] 08/13/2024 12:39:29 Tdap 4 completed Anjana Zayas [facility] 08/13/2024 12:39:29 Influenza, split virus, trivalent, preservative 1 completed [facility] 08/13/2024 12:39:29 Past Encounters Encounter ID Performer Location Encounter Start Date Encounter Closed Date Diagnosis/Indication Diagnosis SNOMED-CT Code Diagnosis ICD10 Code Diagnosis IMO Codes Diagnosis Note [id number] Jeovany Patel [facility] ([facility]) [address] [place] [address] 06/24/2025 08:06:02 06/27/2025 16:24:18 Depressive disorder 41963658 F32.A Mood stable. continue meds Atrial fibrillation 4943 6004 I48.91 Continue Eliquis, metoprolol Recurrent falls 16925592 2 R29.6 no recent falls. Essential hypertension 04736872 I10 06/24/25: BP running low, taking Metoprolol 12.5mg BID, continue current tx, f/u 1 week. Edema of l ower extremity 762422046 R60.0 31712 06/24/25: Start HCTZ 25mg each am. F/u 1 week. Chronic di astolic heart failure 451714187 I50.32 549218 Per Echo with [facility] 03/2024. [id number] Jeovanyrubio PatelDO [facility] ([facility]) [address] [place] [address] 07/01/2025 08:02:33 07/04/2025 14:49:32 Essential hypertension 67331744 I10 07/01/25: Stable, continue current tx. 5: BP running low, taking Metoprolol 12.5mg BID, continue current tx, f/u 1 week. Edema of l ower extremity 497134721 R60.0 54211 07/01/25: Improved, continue HCTZ 25mg each am. 5: Start HCTZ 25mg each am. F/u 1 week. Health Concerns Section Related Observation LastModified by Organization Detai ls LastModified Time None Recorded Concern Status LastModified by Organization Details LastModified Time None Recorded Payers Encounter Date Sequence Insurance Name Policy Number Policy Remy Covered Member ID Remy Member ID Guarantor Name 07/01/2025 1 [place] Heidi I [place] [id number] Heidi I [place] 07/01/2025 2 [place] Heidi Banuelos [id number] Heidi Banuelos Notes Date Note Type Note Provider Name and Address Organization Details Recorded Time 07/01/2025 text/html ROS as noted in the HPI We are seeing pt [place] today for f/u on BP and edema. Plan at last visit:essential upcaovtwbmhx25/12 /25: BP running low, taking Metoprolol 12.5mg BID, continue current tx, f/u 1 week.Lower extremity edema06/24/25: Start HCTZ 25mg each am. F/u 1 week. ======== BP running 106-120's/ 60-70's. Edema slightly improved with HCTZ, tolerating well. Jeovany Patel, DO [address] [place] [address], [phone], [facility] 07/01/2025 10:44:40 OBGyn Episode No OBEpisode recorded.
--- NOTE | 2025-07-07 14:18 | XRR_ITS ---
PROCEDURE INFORMATION: Exam: XR Chest Exam date and time: 07/07/2025 2:40 PM Age: 85 years old Clinical indication: Cough; Additional info: Weakness; Coughing TECHNIQUE: Imaging protocol: Radiologic exam of the chest. Views: 1 view. COMPARISON: CR XR chest 1V portable [id number] 12/29/2021 7:08 PM FINDINGS: Lungs: Unremarkable. No consolidation or mass. Pleural spaces: Unremarkable. No pleural effusion. No pneumothorax. Heart/Mediastinum: There is a large hiatal hernia in the lower mediastinum. Bones/joints: Unremarkable. XR/XR chest 1V portable [id number] IMPRESSION: 1. No acute findings. 2. Large hiatal hernia
--- NOTE | 2025-07-07 14:24 | ECG_ITS ---
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
--- NOTE | 2025-07-07 14:30 | W.ED.GENADLT ---
Documented by User: SABAS Gallardo 07/07/25 17:09 HPI - General Adult General: Chief complaint: General Medical Stated complaint: malaise x1 week Time Seen by Provider: 07/07/25 14:12 Source: patient, EMS, old records reviewed and other ([facility] staff) Mode of arrival: EMS Limitations: no limitations History of Present Illness: Patient is an 85-year-old female with past medical history of pulmonary hypertension, anemia, and anxiety and depression [facility] for reports of malaise for a week. The reports are coming from [facility] staff stating that the patient has been altered for a week. They state that she has been refusing her pain medications. They also state that she has been focusing last and they have noticed some intermittent jaw tremors. This is what they told EMS, however they told nursing staff here that the patient has just been weak. Patient tells me that she has had a cough and felt mildly short of breath but has no other symptoms. She has, stating that she cannot do things that she normally does, but is alert and oriented x 4 at this time. She is nontoxic-appearing, there are no reports of fevers, chills, or recent illness otherwise. She has been having worsening bilateral peripheral edema to her lower extremities, and was recently started on hydrochlorothiazide on 06/25. [facility] staff did report that there have been weeping of the lower extremities. Patient's blood pressure 109/75 at this time, rest of her vital stable she is respirating 20 times a minute and 95- patient 96% SpO2 on room air. MD complaint: Weakness Onset (ago): week(s) (1) Associated symptoms: Reports dyspnea and malaise; Deny chest pain, headache(s), nausea, rash, palpitations or vomiting Related Data Home Medications ?Medication ?Instructions ?Recorded ?Confirmed fexofenadine 180 mg tablet 180 mg PO DAILY 08/11/19 07/07/25 magnesium aspart,citrate,oxide 400 mg PO DAILY 08/11/19 07/07/25 metoprolol tartrate 25 mg tablet 12.5 mg PO BID 08/11/19 07/07/25 simvastatin 20 mg tablet 20 mg PO QPM 08/11/19 07/07/25 Held on 01/01/22. Instructions: Resume on 01/15/22. tramadol 50 mg tablet 50 mg PO DAILY Pain 08/11/19 07/07/25 acetaminophen 325 mg tablet 650 mg PO BID Pain 09/17/19 07/07/25 (Tylenol) apixaban 5 mg tablet (Eliquis) 5 mg PO BID 08/27/22 07/07/25 aspirin 81 mg tablet,delayed 81 mg PO QAM 08/27/22 07/07/25 release (Adult Low Dose Aspirin) fluticasone propionate 50 2 spray intranasal QAM 08/27/22 07/07/25 mcg/actuation nasal spray,suspension (Flonase Allergy Relief) acetaminophen 325 mg tablet 650 mg PO Q4H PRN general 07/07/25 07/07/25 discomfort calcium carbonate 500 mg PO DAILY 07/07/25 07/07/25 hydrochlorothiazide 25 mg tablet 25 mg PO DAILY 07/07/25 07/07/25 tramadol 50 mg tablet See Rx Instructions .Route 07/07/25 07/07/25 .COMPLEX PRN Severe Pain (Scale Score 7-10) Allergies Allergy/AdvReac Type Severity Reaction Status Date / Time codeine AdvReac Gi Verified 05/05/25 14:46 upset/dizziness Penicillins AdvReac GI upset Verified 05/05/25 14:46 Review of Systems General: Reports: 10 or more systems reviewed and unremarkable except in HPI and below Const: Reports: fatigue and malaise; Denies: fever(s) or chills Eyes: Denies: change in vision ENMT: Denies: throat pain, ear or mastoid pain or nasal discharge Card: Denies: chest pain, palpitations, swelling of feet/ankles or lightheadedness Resp: Reports: dyspnea and non-productive cough; Denies: productive cough or wheezing GI: Denies: abdominal pain, nausea, vomiting, diarrhea or constipation : Denies: flank pain, difficulty voiding, dysuria or urinary frequency Musc: Denies: neck pain, back pain or joint pain Skin/Breast: Denies: rash Neuro: Denies: headache(s), numbness in extremities or weakness in extremities PFSH ED PFSH: Medical History Thrombophlebitis, popliteal vein (~09/2019) RLE Zenker's diverticulum intermittently seen in swallow study 11/2019 History of stress test 2017 no evidence myocardial ischemia Pulmonary hypertension 2017 echo with peak PAP 49 mmHg, EF 65% History of myocardial infarction due to demand ischemia (2017) in setting of severe sepsis, negative stress test subsequent to this Restless leg syndrome Hypertension Hyperlipidemia 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 Macrocytic anemia Anxiety and depression Irritable bowel syndrome Essential tremor Peripheral neuropathy Osteoarthritis Surgical History H/O knee surgery History of repair of rotator cuff History of hysterectomy History of appendectomy Family History Family/Other Heart problem Daughter Heart problem Other Cancer Dementia Diabetes Heart attack Hypertension Social History Smoking and tobacco/nicotine status: never used tobacco/nicotine Alcohol intake: never Substance/Drug Use: never Household members: other Details: lives alone but family near by Physical Exam Const: COMMON NORMALS: no acute distress, patient oriented x3 and no limitations GENERAL APPEARANCE: cooperative ORIENTATION/CONSCIOUSNESS: Yes awake, Yes oriented to person, Yes oriented to place and Yes oriented to time OTHER: Nontoxic-appearing HENMT: COMMON NORMALS: normocephalic, atraumatic and hearing grossly normal bilaterally HEAD & SCALP: normocephalic and atraumatic Eye: COMMON NORMALS: Equal, round and reactive pupils present, EOMs intact bilaterally and conjunctivae normal CONJUNCTIVA: Yes conjunctivae normal PUPIL: Yes Equal, round and reactive pupils present Neck/C-Spine: COMMON NORMALS: full ROM, supple and no JVD Resp: COMMON NORMALS: normal respiratory effort, No retractions, No use of accessory muscles and clear to auscultation bilaterally AUSCULTATION: clear to auscultation bilaterally Cardio: COMMON NORMALS: no JVD, regular rate, regular rhythm, No clicks present (Cardio), No murmurs present (Cardio) and No rub (Cardio) RATE: regular rate RHYTHM: regular rhythm GI: COMMON NORMALS: Soft to palpation and non-tender INSPECTION: Yes central obesity PALPATION: Yes Soft to palpation Extremity: COMMON NORMALS: full ROM and capillary refill normal NARRATIVE EXTREMITY EXAM: 3+ pitting edema bilateral lower extremities, minimal weeping noted Neuro: COMMON NORMALS: patient oriented x3, CN's II-XII intact bilaterally, moves all extremities, no focal motor deficits and no sensory deficits noted SENSORIUM/ORIENTATION: Yes oriented to person, Yes oriented to place and Yes oriented to time Skin: COMMON NORMALS: no rashes or lesions noted GENERAL SKIN EXAM: no rashes or lesions noted Course Vital Signs: Vital signs: Vital Signs Temperature 98.3 F 07/07/25 14:11 Pulse Rate 71 07/07/25 17:03 Respiratory Rate 20 H 07/07/25 14:11 Blood Pressure 128/77 07/07/25 17:03 Pulse Oximetry 97 07/07/25 17:03 Oxygen Delivery Me thod Nasal Cannula 07/07/25 17:03 Oxygen Flow Rate 2 07/07/25 17:03 MDM - General Adult Medical Decision Making Patient [facility] for reports of weakness for a week, as well as possible altered mental status. Patient arrived alert and oriented x 4, nontoxic-appearing and complaining of subjective coughing and mild shortness of breath. She arrived on oxygen but was weaned off initially due to her being greater than 90% on room air, however throughout ED stay slowly had dropped, however this is primarily noted when she was sleeping. But she has required 2 L to maintain above 90% towards the end of her ED stay, not normally requiring oxygen. No coughing noted here and heart and lung sounds are unremarkable. No signs of delirium or encephalopathy during the examination. Her urinalysis positive for urinary tract infection which likely is explaining the symptoms of weakness and decreased focus and reports of possible altered mental. Chest x-ray showing no consolidations, her CBC is unremarkable, there is slight bump in creatinine and BUN on her metabolic panel, of note she recently started hydrochlorothiazide on the for heart failure, however BNP is negative at this time. Delta troponin negative. EKGs have been unremarkable as well. Her viral swab is negative. Initiated Rocephin here in the emergency department, speaking with family they had endorsed preference for hospitalization due to the new increased oxygen requirements of unknown etiology as well as her new signs and symptoms of delirium that again are subjective as she has been alert and oriented here in the emergency department. For this I spoke with Dr. Landrum, agreeing to except for observation to [facility]. Spoke to Dr. Esquivel about this patient, placing admit orders at this time. Lab Data 07/07/25 14:42 07/07/25 14:42 Radiology Impressions Chest X-Ray 07/07/25 14:18 IMPRESSION: 1. No acute findings. 2. Large hiatal hernia Laboratory Results WBC 9.64 10^3/uL (3.29-11.43) 07/07/25 14:42 RBC 3.96 10^6/uL (3.85-5.65) 07/07/25 14:42 Hgb 11.80 g/dL (11.27-16.99) 07/07/25 14:42 Hct 37.5 % (36-47) 07/07/25 14:42 MCV 94.7 fl (85-98) 07/07/25 14:42 MCH 29.8 pg (27-33) 07/07/25 14:42 MCHC 31.5 g/dL (30-55) 07/07/25 14:42 RDW 13.6 % (12.1-15.1) 07/07/25 14:42 Plt Count 263 10^3/cmm (157-399) 07/07/25 14:42 MPV 11.8 fL (7.4-10.4) H 07/07/25 14:42 Neut % (Auto) 77.9 % 07/07/25 14:42 Lymph % (Auto) 11.5 % 07/07/25 14:42 Parke % (Auto) 9.0 % 07/07/25 14:42 Eos % (Auto) 0.8 % 07/07/25 14:42 Baso % (Auto) 0.5 % 07/07/25 14:42 Neut # (Auto) 7.50 10^3/uL (1.8-7.7) 07/07/25 14:42 Lymph # (Auto) 1.1 10^3/uL (0.8-4.8) 07/07/25 14:42 Parke # (Auto) 0.9 10^3/uL (0.2-0.9) 07/07/25 14:42 Eos # (Auto) 0.1 10^3/uL (0.0-0.8) 07/07/25 14:42 Baso # (Auto) 0.1 10^3/uL (0.0-0.1) 07/07/25 14:42 Nucleated RBC % (auto) 0 % 07/07/25 14:42 Nucleated RBCs # 0.0 /100WBC 07/07/25 14:42 PT 21.70 SECONDS (12.1-14.9) H 07/07/25 14:42 INR 1.77 (0.8-1.2) H 07/07/25 14:42 APTT 36.9 SECONDS (23.9-36.7) H 07/07/25 14:42 Sodium 140 mmol/L (136-145) 07/07/25 14:42 Potassium 3.4 mmol/L (3.5-5.1) L 07/07/25 14:42 Chloride 99 mmol/L (98-107) 07/07/25 14:42 Carbon Dioxide 28 mmol/L (22-29) 07/07/25 14:42 Anion Gap 16.4 (5-19) 07/07/25 14:42 BUN 29 mg/dL (8-23) H 07/07/25 14:42 Creatinine 1.1 mg/dL (0.5-0.9) H 07/07/25 14:42 GFR Calculation Not Reportable 07/07/25 14:42 Glucose 185 mg/dL (65-115) H 07/07/25 14:42 Calculated Osmolality 301 mOsm/kg (285-295) H 07/07/25 14:42 Lactic Acid 1.9 mmol/L (0.5-2.2) 07/07/25 14:42 Calcium 10.1 mg/dL (8.5-10.5) 07/07/25 14:42 Magnesium 1.9 mg/dL (1.7-2.3) 07/07/25 14:42 Total Bilirubin 0.8 mg/dL (0.15-1.2) 07/07/25 14:42 AST 18 U/L (0-32) 07/07/25 14:42 ALT 8 U/L (0-33) 07/07/25 14:42 Alkaline Phosphatase 76 U/L (35-105) 07/07/25 14:42 Troponin T Baseline 24 ng/L (0-10) H 07/07/25 14:42 Troponin T 60 Minute 23.03 ng/L (0-10) H 07/07/25 15:23 Delta Troponin T -0.97 ABS# (0-10) L 07/07/25 15:23 NT-Pro-B Natriuret Pep 409 pg/mL (0-450) 07/07/25 14:42 Total Protein 7.2 g/dL (6.6-8.7) 07/07/25 14:42 Albumin 3.7 g/dL (3.5-5.2) 07/07/25 14:42 Globulin 3.5 g/dL (1.3-4.6) 07/07/25 14:42 Urine Color Yellow (Yellow) 07/07/25 14:30 Urine Appearance Cloudy (CLEAR) A 07/07/25 14: Urine pH 5.5 (5-7) 07/07/25 14: Ur Specific [place] 1.022 (1.005-1.030) 07/07/25 14:30 Urine Protein Trace (Negative) A 07/07/25 14: Urine Glucose (UA) Negative (Normal) 07/07/25 14: Urine Ketones Negative (Negative) 07/07/25 14:30 Urine Blood Non-haemolysed trace (Negative) 07/07/25 14:30 Urine Nitrate Positive (Negative) A 07/07/25 14: Urine Bilirubin Negative (Negative) 07/07/25 14: Urine Urobilinogen 1.0 mg/dL (Negative) 07/07/25 14:30 Ur Leukocyte Esterase 3+ (Negative) A 07/07/25 14: Urine RBC 3-5 /hpf (0-2) 07/07/25 14: Urine WBC >100 /hpf (0-5) H 07/07/25 14:30 Ur Squamous Epith Cells 0-5 /hpf (0-5) 07/07/25 14:30 Amorphous Sediment Not Reportable 07/07/25 14:30 Urine Bacteria 3+ /hpf (NONE) H 07/07/25 14:30 Hyaline Casts 13.22 /lpf 07/07/25 14:30 Influenza A (PCR) Negative (Negative) 07/07/25 14:24 Influenza Type B (PCR) Negative (Negative) 07/07/25 14:24 RSV (PCR) Negative (Negative) 07/07/25 14:24 SARS-CoV-2 (PCR) Negative (Negative) 07/07/25 14:24 All radiology interpretation(s) finalized by discharge Discharge Plan Discharge Patient Disposition: Placed in Observation Clinical Impression: Acute hypoxic respiratory failure Urinary tract infection Qualifiers: Urinary tract infection type: acute cystitis Hematuria presence: without hematuria Qualified Code(s): N30.00 - Acute cystitis without hematuria Coding Level of Care Code ED Bookkeeper Assistant for Chg Fwd Documented by User: Marleen Esquivel MD 07/07/25 17:10 HPI - General Adult General: Chief complaint: General Medical Stated complaint: malaise x1 week Time Seen by Provider: 07/07/25 14:12 Related Data Home Medications ?Medication ?Instructions ?Recorded ?Confirmed fexofenadine 180 mg tablet 180 mg PO DAILY 08/11/19 07/07/25 magnesium aspart,citrate,oxide 400 mg PO DAILY 08/11/19 07/07/25 metoprolol tartrate 25 mg tablet 12.5 mg PO BID 08/11/19 07/07/25 simvastatin 20 mg tablet 20 mg PO QPM 08/11/19 07/07/25 Held on 01/01/22. Instructions: Resume on 01/15/22. tramadol 50 mg tablet 50 mg PO DAILY Pain 08/11/19 07/07/25 acetaminophen 325 mg tablet 650 mg PO BID Pain 09/17/19 07/07/25 (Tylenol) apixaban 5 mg tablet (Eliquis) 5 mg PO BID 08/27/22 07/07/25 aspirin 81 mg tablet,delayed 81 mg PO QAM 08/27/22 07/07/25 release (Adult Low Dose Aspirin) fluticasone propionate 50 2 spray intranasal QAM 08/27/22 07/07/25 mcg/actuation nasal spray,suspension (Flonase Allergy Relief) acetaminophen 325 mg tablet 650 mg PO Q4H PRN general 07/07/25 07/07/25 discomfort calcium carbonate 500 mg PO DAILY 07/07/25 07/07/25 hydrochlorothiazide 25 mg tablet 25 mg PO DAILY 07/07/25 07/07/25 tramadol 50 mg tablet See Rx Instructions .Route 07/07/25 07/07/25 .COMPLEX PRN Severe Pain (Scale Score 7-10) Allergies Allergy/AdvReac Type Severity Reaction Status Date / Time codeine AdvReac Gi Verified 05/05/25 14:46 upset/dizziness Penicillins AdvReac GI upset Verified 05/05/25 14:46 PFSH ED PFSH: Medical History Thrombophlebitis, popliteal vein (~09/2019) RLE Zenker's diverticulum intermittently seen in swallow study 11/2019 History of stress test 2016 no evidence myocardial ischemia Pulmonary hypertension 2017 echo with peak PAP 49 mmHg, EF 65% History of myocardial infarction due to demand ischemia (2017) in setting of severe sepsis, negative stress test subsequent to this Restless leg syndrome Hypertension Hyperlipidemia 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 Macrocytic anemia Anxiety and depression Irritable bowel syndrome Essential tremor Peripheral neuropathy Osteoarthritis Surgical History H/O knee surgery History of repair of rotator cuff History of hysterectomy History of appendectomy Family History Family/Other Heart problem Daughter Heart problem Other Cancer Dementia Diabetes Heart attack Hypertension Social History Smoking and tobacco/nicotine status: never used tobacco/nicotine Alcohol intake: never Substance/Drug Use: never Household members: other Details: lives alone but family near by Course Vital Signs: Vital signs: Vital Signs Temperature 98.3 F 07/07/25 14:11 Pulse Rate 71 07/07/25 17:03 Respiratory Rate 20 H 07/07/25 14:11 Blood Pressure 128/77 07/07/25 17:03 Pulse Oximetry 97 07/07/25 17:03 Oxygen Delivery Me thod Nasal Cannula 07/07/25 17:03 Oxygen Flow Rate 2 07/07/25 17:03 MDM - General Adult Medical Decision Making [facility] for reports of weakness for a week, as well as possible altered mental status. Patient arrived alert and oriented x 4, nontoxic-appearing and complaining of subjective coughing and mild shortness of breath. She arrived on oxygen but was weaned off initially due to her being greater than 90% on room air, however throughout ED stay slowly had dropped, however this is primarily noted when she was sleeping. But she has required 2 L to maintain above 90% towards the end of her ED stay, not normally requiring oxygen. No coughing noted here and heart and lung sounds are unremarkable. No signs of delirium or encephalopathy during the examination. Her urinalysis positive for urinary tract infection which likely is explaining the symptoms of weakness and decreased focus and reports of possible altered mental. Chest x-ray showing no consolidations, her CBC is unremarkable, there is slight bump in creatinine and BUN on her metabolic panel, of note she recently started hydrochlorothiazide on the for heart failure, however BNP is negative at this time. Delta troponin negative. EKGs have been unremarkable as well. Her viral swab is negative. Initiated Rocephin here in the emergency department, speaking with family they had endorsed preference for hospitalization due to the new increased oxygen requirements of unknown etiology as well as her new signs and symptoms of delirium that again are subjective as she has been alert and oriented here in the emergency department. For this I spoke with Dr. Landrum, agreeing to except for observation to [facility]. Spoke to Dr. Esquivel about this patient, placing admit orders at this time. The case was discussed with the midlevel provider. Evaluation and management service: I agree with the evaluation and management decisions made in this patient's care. Results interpretation: I agree with the study interpretation in this patient's care, I agree with the documentation of the study interpretation. Lab Data 07/07/25 14:42 07/07/25 14:42 Radiology Impressions Chest X-Ray 07/07/25 14:18 IMPRESSION: 1. No acute findings. 2. Large hiatal hernia Laboratory Results WBC 9.64 10^3/uL (3.29-11.43) 07/07/25 14:42 RBC 3.96 10^6/uL (3.85-5.65) 07/07/25 14:42 Hgb 11.80 g/dL (11.27-16.99) 07/07/25 14:42 Hct 37.5 % (36-47) 07/07/25 14:42 MCV 94.7 fl (85-98) 07/07/25 14:42 MCH 29.8 pg (27-33) 07/07/25 14:42 MCHC 31.5 g/dL (30-55) 07/07/25 14:42 RDW 13.6 % (12.1-15.1) 07/07/25 14:42 Plt Count 263 10^3/cmm (157-399) 07/07/25 14:42 MPV 11.8 fL (7.4-10.4) H 07/07/25 14:42 Neut % (Auto) 77.9 % 07/07/25 14:42 Lymph % (Auto) 11.5 % 07/07/25 14:42 Parke % (Auto) 9.0 % 07/07/25 14:42 Eos % (Auto) 0.8 % 07/07/25 14:42 Baso % (Auto) 0.5 % 07/07/25 14:42 Neut # (Auto) 7.50 10^3/uL (1.8-7.7) 07/07/25 14:42 Lymph # (Auto) 1.1 10^3/uL (0.8-4.8) 07/07/25 14:42 Parke # (Auto) 0.9 10^3/uL (0.2-0.9) 07/07/25 14:42 Eos # (Auto) 0.1 10^3/uL (0.0-0.8) 07/07/25 14:42 Baso # (Auto) 0.1 10^3/uL (0.0-0.1) 07/07/25 14:42 Nucleated RBC % (auto) 0 % 07/07/25 14:42 Nucleated RBCs # 0.0 /100WBC 07/07/25 14:42 PT 21.70 SECONDS (12.1-14.9) H 07/07/25 14:42 INR 1.77 (0.8-1.2) H 07/07/25 14:42 APTT 36.9 SECONDS (23.9-36.7) H 07/07/25 14:42 Sodium 140 mmol/L (136-145) 07/07/25 14:42 Potassium 3.4 mmol/L (3.5-5.1) L 07/07/25 14:42 Chloride 99 mmol/L (98-107) 07/07/25 14:42 Carbon Dioxide 28 mmol/L (22-29) 07/07/25 14:42 Anion Gap 16.4 (5-19) 07/07/25 14:42 BUN 29 mg/dL (8-23) H 07/07/25 14:42 Creatinine 1.1 mg/dL (0.5-0.9) H 07/07/25 14:42 GFR Calculation Not Reportable 07/07/25 14:42 Glucose 185 mg/dL (65-115) H 07/07/25 14:42 Calculated Osmolality 301 mOsm/kg (285-295) H 07/07/25 14:42 Lactic Acid 1.9 mmol/L (0.5-2.2) 07/07/25 14:42 Calcium 10.1 mg/dL (8.5-10.5) 07/07/25 14:42 Magnesium 1.9 mg/dL (1.7-2.3) 07/07/25 14:42 Total Bilirubin 0.8 mg/dL (0.15-1.2) 07/07/25 14:42 AST 18 U/L (0-32) 07/07/25 14:42 ALT 8 U/L (0-33) 07/07/25 14:42 Alkaline Phosphatase 76 U/L (35-105) 07/07/25 14:42 Troponin T Baseline 24 ng/L (0-10) H 07/07/25 14:42 Troponin T 60 Minute 23.03 ng/L (0-10) H 07/07/25 15:23 Delta Troponin T -0.97 ABS# (0-10) L 07/07/25 15:23 NT-Pro-B Natriuret Pep 409 pg/mL (0-450) 07/07/25 14:42 Total Protein 7.2 g/dL (6.6-8.7) 07/07/25 14:42 Albumin 3.7 g/dL (3.5-5.2) 07/07/25 14:42 Globulin 3.5 g/dL (1.3-4.6) 07/07/25 14:42 Urine Color Yellow (Yellow) 07/07/25 14:30 Urine Appearance Cloudy (CLEAR) A 07/07/25 14:30 Urine pH 5.5 (5-7) 07/07/25 14:30 Ur Specific [place] 1.022 (1.005-1.030) 07/07/25 14:30 Urine Protein Trace (Negative) A 07/07/25 14:30 Urine Glucose (UA) Negative (Normal) 07/07/25 14: Urine Ketones Negative (Negative) 07/07/25 14: Urine Blood Non-haemolysed trace (Negative) 07/07/25 14: Urine Nitrate Positive (Negative) A 07/07/25 14: Urine Bilirubin Negative (Negative) 07/07/25 14: Urine Urobilinogen 1.0 mg/dL (Negative) 07/07/25 14: Ur Leukocyte Esterase 3+ (Negative) A 07/07/25 14: Urine RBC 3-5 /hpf (0-2) 07/07/25 14:30 Urine WBC >100 /hpf (0-5) H 07/07/25 14:30 Ur Squamous Epith Cells 0-5 /hpf (0-5) 07/07/25 14:30 Amorphous Sediment Not Reportable 07/07/25 14:30 Urine Bacteria 3+ /hpf (NONE) H 07/07/25 14:30 Hyaline Casts 13.22 /lpf 07/07/25 14:30 Influenza A (PCR) Negative (Negative) 07/07/25 14:24 Influenza Type B (PCR) Negative (Negative) 07/07/25 14:24 RSV (PCR) Negative (Negative) 07/07/25 14:24 SARS-CoV-2 (PCR) Negative (Negative) 07/07/25 14:24 Discharge Plan Discharge Patient Disposition: Placed in Observation Clinical Impression: Acute hypoxic respiratory failure Urinary tract infection Qualifiers: Urinary tract infection type: acute cystitis Hematuria presence: without hematuria Qualified Code(s): N30.00 - Acute cystitis without hematuria Coding Level of Care Code ED Bookkeeper Assistant for Jose Maria Tran
[2025-07-07 14:38] LABS: Glucose Urine UA Negative (Normal); Nitrate Urine Positive (Negative); Specific Gravity, Urine 1.022 (1.005-1.030)
[2025-07-07 14:46] LABS: Add Urine Microscopic? YES
[2025-07-07 14:54] LABS: Hematocrit 37.5 % (36-47); Hemoglobin 11.80 g/dL (11.27-16.99); Mean Corpuscular HGB Conc 31.5 g/dL (30-55); Mean Corpuscular Hemoglobin 29.8 pg (27-33); Mean Corpuscular Volume 94.7 fl (85-98); Nucleated Red Blood Cells % 0 %; Platelet Count 263 10^3/cmm (157-399); Red Blood Count 3.96 10^6/uL (3.85-5.65); White Blood Count 9.64 10^3/uL (3.29-11.43)
[2025-07-07 14:59] LABS: UA Slide Review UA Slide Review Perf
[2025-07-07 15:04] LABS: INR 1.77 (0.8-1.2); Prothrombin Time 21.70 SECONDS (12.1-14.9)
[2025-07-07 15:05] LABS: Partial Thromboplastin Time 36.9 SECONDS (23.9-36.7)
[2025-07-07 15:09] LABS: Respiratory Syncytial Virus Ce NEGATIVE (Negative); SARS-CoV-2 PCR NEGATIVE (Negative)
[2025-07-07 15:09] LABS: Troponin(5th) Baseline 24 ng/L (0-10)
[2025-07-07] MEDS: cefTRIAXone 1,000 mg SDV 1000 MG IVP (15:09)
[2025-07-07 15:10] LABS: Lactic Sepsis W/Reflex 1.9 mmol/L (0.5-2.2)
--- NOTE | 2025-07-07 15:18 | ECG_ITS ---
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[id number] Requested By: Jt Cage Order Number: [id number] Reading MD: KARSON MCDONOUGH Measurements Intervals [place] Rate: 83 P: -21 OR: 162 QRS: 88 QRSD: 85 T: -2 QT: 378 QTc: 444 Interpretive Statements SINUS RHYTHM WITH OCCASIONAL SUPRAVENTRICULAR PREMATURE COMPLEXES LOW QRS VOLTAGE IN EXTREMITY LEADS [QRS DEFLECTION < 0.5 mV IN LIMB LEADS] POSSIBLE RIGHT VENTRICULAR CONDUCTION DELAY [RSR (QR) IN V1/V2] POSSIBLE LATERAL MYOCARDIAL INFARCTION , PROBABLY OLD [30 ms Q WAVE IN I/aVL/V5/V6] Compared to ECG 07/07/2025 14:24:41 Low QRS voltage now present Myocardial infarct finding now present T-wave abnormality no longer present Electronically Signed On 07-10-2025 23:26:16 VECTOR CONTROL ASSISTANT by KARSON MCDONOUGH [email or web address]
[2025-07-07 15:31] LABS: Alanine Aminotransferase 8 U/L (0-33); Albumin Level 3.7 g/dL (3.5-5.2); Alkaline Phosphatase 76 U/L (35-105); Anion Gap 16.4 (5-19); Aspartate Amino Transferase 18 U/L (0-32); Blood Urea Nitrogen 29 mg/dL (8-23); Calcium 10.1 mg/dL (8.5-10.5); Carbon Dioxide 28 mmol/L (22-29); Chloride 99 mmol/L (98-107); Globulin 3.5 g/dL (1.3-4.6); Glucose 185 mg/dL (65-115); Magnesium 1.9 mg/dL (1.7-2.3); NT Pro B Type Natriuretic Pept 409 pg/mL (0-450); Osmolality Calculated 301 mOsm/kg (285-295); Potassium 3.4 mmol/L (3.5-5.1); Sodium 140 mmol/L (136-145); Total Protein 7.2 g/dL (6.6-8.7)
--- NOTE | 2025-07-07 15:43 | PC.NURSE ---
Pt. placed on 2L O2 due to pt. dropping to 87 while sleeping. pt. denies o2 use at home.
--- NOTE | 2025-07-07 15:49 | PC.PHAR ---
Pt is resident at [facility]
--- NOTE | 2025-07-07 15:58 | PC.NURSE ---
pt family bedside set down rail to right side.
--- NOTE | 2025-07-07 16:41 | PC.NURSE ---
this nurse updated [facility] on pt status and pt admit
--- NOTE | 2025-07-07 19:26 | PM.HP ---
Providers/Chief Complaint Admitting Physician: Jcarlos Nance MD Primary Care Provider: Jeovany Patel DO Chief Complaint: Aloc today History of Present Illness Heidi Banuelos is a 85 year old female past medical history of severe obesity, pulmonary hypertension, cor pulmonale anemia anxiety [facility]aise, weakness and shallow breathing. I saw the patient, she was awake alert oriented. She does have some acute on chronic lower pitting edema for which she has only been taking hydrochlorothiazide. Vitals were normal, patient was saturating 95 to 96% on room air respiratory therapy ordered. Medications/Allergies Home Medications ?Medication ?Instructions ?Recorded ?Confirmed ?Last Taken ?Type fexofenadine 180 mg tablet 180 mg PO DAILY 08/11/19 07/07/25 07/07/25 History magnesium aspart,citrate,oxide 400 mg PO DAILY 08/11/19 07/07/25 07/07/25 History metoprolol tartrate 25 mg tablet 12.5 mg PO BID 08/11/19 07/07/25 07/07/25 History simvastatin 20 mg tablet 20 mg PO QPM 08/11/19 07/07/25 07/06/25 History Held on 01/01/22. Instructions: Resume on 01/15/22. tramadol 50 mg tablet 50 mg PO DAILY Pain 08/11/19 07/07/25 07/07/25 History acetaminophen 325 mg tablet 650 mg PO BID Pain 09/17/19 07/07/25 07/07/25 History (Tylenol) apixaban 5 mg tablet (Eliquis) 5 mg PO BID 08/27/22 07/07/25 07/07/25 History aspirin 81 mg tablet,delayed 81 mg PO QAM 08/27/22 07/07/25 07/07/25 History release (Adult Low Dose Aspirin) fluticasone propionate 50 2 spray intranasal QAM 08/27/22 07/07/25 07/07/25 History mcg/actuation nasal spray,suspension (Flonase Allergy Relief) acetaminophen 325 mg tablet 650 mg PO Q4H PRN general 07/07/25 07/07/25 07/07/25 History discomfort calcium carbonate 500 mg PO DAILY 07/07/25 07/07/25 07/07/25 History hydrochlorothiazide 25 mg tablet 25 mg PO DAILY 07/07/25 07/07/25 07/07/25 History tramadol 50 mg tablet See Rx Instructions .Route 07/07/25 07/07/25 07/06/25 History .COMPLEX PRN Severe Pain (Scale Score 7-10) Allergies Allergy/AdvReac Type Severity Reaction Status Date / Time codeine AdvReac Gi Verified 05/05/25 14:46 upset/dizziness Penicillins AdvReac GI upset Verified 05/05/25 14:46 PFSH Acute PFSH: Medical History (Updated 07/07/25 @ 16:28 by SABAS Gallardo) Thrombophlebitis, popliteal vein (~09/2019) RLE Zenker's diverticulum intermittently seen in swallow study 11/2019 History of stress test 2017 no evidence myocardial ischemia Pulmonary hypertension 2017 echo with peak PAP 49 mmHg, EF 65% History of myocardial infarction due to demand ischemia (2017) in setting of severe sepsis, negative stress test subsequent to this Restless leg syndrome Hypertension Hyperlipidemia 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 Macrocytic anemia Anxiety and depression Irritable bowel syndrome Essential tremor Peripheral neuropathy Osteoarthritis Surgical History H/O knee surgery History of repair of rotator cuff History of hysterectomy History of appendectomy Family History Family/Other Heart problem Daughter Heart problem Other Cancer Dementia Diabetes Heart attack Hypertension Social History Smoking and tobacco/nicotine status: never used tobacco/nicotine Alcohol intake: never Substance/Drug Use: never Household members: other Details: lives alone but family near by Vitals/I&O/Wt Last Vital Signs Temp 98.3 F 07/07/25 14:11 Pulse 67 07/07/25 18:46 Resp 20 H 07/07/25 14:11 BP 130/75 07/07/25 18:46 Pulse Ox 96 07/07/25 18:46 O2 Del Method Room Air 07/07/25 18:46 O2 Flow Rate 2 07/07/25 17:03 Weight last 48 hrs Weight 87.09 kg Physical Exam Const: COMMON NORMALS: patient oriented x3 and alert GENERAL APPEARANCE: cooperative ORIENTATION/CONSCIOUSNESS: Yes awake HENMT: COMMON NORMALS: oropharynx normal Neck/C-Spine: COMMON NORMALS: no JVD Resp: COMMON NORMALS: normal respiratory effort and clear to auscultation bilaterally AUSCULTATION: clear to auscultation bilaterally Cardio: COMMON NORMALS: no JVD, regular rhythm, S1 normal heart sound present, S2 normal heart sound present and No murmurs present (Cardio) RHYTHM: regular rhythm HEART SOUNDS: S1 normal heart sound present and S2 normal heart sound present GI: COMMON NORMALS: Normal to inspection, nondistended, normoactive bowel sounds present, Soft to palpation and non-tender PALPATION: Yes Soft to palpation Extremity: NARRATIVE EXTREMITY EXAM: Large +2 bilateral pitting edema Neuro: COMMON NORMALS: patient oriented x3 and moves all extremities SENSORIUM/ORIENTATION: Yes alert Skin: COMMON NORMALS: no rashes or lesions noted GENERAL SKIN EXAM: no rashes or lesions noted Data 07/08/25 05:52 07/08/25 05:52 Micro: Microbiology 07/07/25 14:42 Blood Culture - Preliminary Blood SPECIMEN COLLECTED 07/07/25 14:42 Blood Culture - Preliminary Blood SPECIMEN COLLECTED A&P Assessment and plan 1. Acute hypoxic respiratory failure: Plan: 85-year-old female with morbid obesity, paroxysmal atrial fibrillation, on Eliquis 5 mg twice daily, aspirin 81 mg daily, metoprolol tartrate 12.5 mg twice daily, minimal dose. Presents to the ED with generalized weakness and mild shortness of breath. Severe leg swelling. Paroxysmal atrial fibrillation Pulmonary hypertension with cor pulmonale Anticoagulated state Hypertension on hydrochlorothiazide 25 mg p.o. daily Hypercholesterolemia I reviewed echocardiogram last 1 done was recently on 04/08/2024 and showed normal left ventricular cavity size with grade 4 diastolic dysfunction . Patient is currently in sinus rhythm, will maintain anticoagulation. Not likely pneumonia or any respiratory distress. Will observe patient overnight, with RT therapy support, CPAP versus BiPAP, will admit for observation. DVT prophylaxis: Eliquis GI prophylaxis: Protonix 40 mg p.o. daily PDMP PDMP Reviewed: Not Reviewed Attestations Medical Necessity Statement*: Patient placed in observation, anticipate discharge tomorrow if she remains stable Diagnoses Acute hypoxic respiratory failure J96.01
--- NOTE | 2025-07-07 21:21 | ECG_ITS ---
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
[2025-07-07 21:49] LABS: Troponin 5 6HR 22.25 ng/L (0-10)
[2025-07-07 21:52] LABS: Troponin 5 6HR Delta -1.75 ng/L (0-12)
--- NOTE | 2025-07-07 22:15 | USR_ITS ---
PROCEDURE INFORMATION: Exam: US Duplex Left Lower Extremity Veins, Limited Exam date and time: 07/07/2025 10:25 PM Age: 85 years old Clinical indication: Edema, localized; Lower extremity, left; Additional info: Swelling TECHNIQUE: Imaging protocol: Real-time duplex ultrasound of the left extremity with 2-D piedra scale, color Doppler flow and spectral waveform analysis including responses to compression and other maneuvers (when performed) with image documentation. Limited exam focused on the left lower extremity veins. COMPARISON: US CV venous duplex [facility] [id number] 09/17/2019 6:55 PM FINDINGS: Left deep veins: Unremarkable. The common femoral, femoral, proximal profunda femoral and popliteal veins are patent without thrombus. Normal Doppler waveforms. Normal compressibility and/or augmentation response. Superficial veins: Greater saphenous vein at the saphenofemoral junction is patent without thrombus. Soft tissues: Mild lower extremity soft tissue edema is noted. US/CV venous duplex [facility] [id number] IMPRESSION: No evidence of deep vein thrombosis.
[2025-07-08] VITALS (7 sets, daily range): BP systolic 101–132; BP diastolic 62–77; PULSE 77–93; RESP 15–17; TEMP 36.7–37.6; O2SAT 92–98
[2025-07-08] MEDS: ATORVASTATIN 20 MG TABLET PO (05:15)
[2025-07-08 06:20] LABS: Hematocrit 36.6 % (36-47); Hemoglobin 11.80 g/dL (11.27-16.99); Mean Corpuscular HGB Conc 32.2 g/dL (30-55); Mean Corpuscular Hemoglobin 30.5 pg (27-33); Mean Corpuscular Volume 94.6 fl (85-98); Nucleated Red Blood Cells % 0 %; Platelet Count 259 10^3/cmm (157-399); Red Blood Count 3.87 10^6/uL (3.85-5.65); White Blood Count 8.97 10^3/uL (3.29-11.43)
[2025-07-08 06:41] LABS: Alanine Aminotransferase 7 U/L (0-33); Albumin Level 3.2 g/dL (3.5-5.2); Alkaline Phosphatase 68 U/L (35-105); Anion Gap 14.5 (5-19); Aspartate Amino Transferase 15 U/L (0-32); Blood Urea Nitrogen 20 mg/dL (8-23); Calcium 9.8 mg/dL (8.5-10.5); Carbon Dioxide 29 mmol/L (22-29); Chloride 101 mmol/L (98-107); Globulin 3.9 g/dL (1.3-4.6); Glucose 118 mg/dL (65-115); Magnesium 1.8 mg/dL (1.7-2.3); Osmolality Calculated 294 mOsm/kg (285-295); Potassium 4.5 mmol/L (3.5-5.1); Sodium 140 mmol/L (136-145); Total Protein 7.1 g/dL (6.6-8.7)
--- NOTE | 2025-07-08 23:25 | P.PN_ITS ---
Subjective 2 Subjective: Patient awake and alert, mildly confused. Repeats telling me what medications she is allergic to, penicillin and tramadol. I assured her that I remembered that fact. Patient remains in sinus rhythm pulse rate 77 respiration 17 normotensive. Saturating 95% on 2 L nasal cannula. Laboratory results unremarkable. Urine cultures positive for gram-negative rods, specificity pending. Empiric ceftriaxone has already been given, she was tachypneic yesterday so it was to cover pneumonia. But also she might have gram-negative UTI. For her mild leg edema, venous Doppler came back showing patent veins and no thrombus. Apixaban is on board for thrombus prevention in the setting of paroxysmal atrial fibrillation. Discussed with case management, discharge planning for return to SNF. Though patient appears to have shallow breathing, she has no complaints, no pain. Vitals/I&O/Wt Last Vital Signs Temp 98.9 F 07/08/25 20:00 Pulse 77 07/08/25 20:00 Resp 17 07/08/25 20:00 BP 121/74 07/08/25 20:00 Pulse Ox 95 07/08/25 20:00 O2 Del Method Nasal Cannula 07/08/25 20:00 O2 Flow Rate 2 07/08/25 20:00 07/08/25 07/08/25 07/09/25 14:59 22:59 06:59 Intake Total 340 / 340 Balance 340 / 340 Weight last 48 hrs Weight 87.09 kg Weight 87.09 kg Physical Exam 2 Const: COMMON NORMALS: patient oriented x3 and alert GENERAL APPEARANCE: c ooperative ORIENTATION/CONSCIOUSNESS: Yes awake HENMT: COMMON NORMALS: oropharynx normal Neck/C-Spine: COMMON NORMALS: no JVD Resp: COMMON NORMALS: normal respiratory effort and clear to auscultation bilaterally AUSCULTATION: clear to auscultation bilaterally Cardio: COMMON NORMALS: no JVD, regular rhythm, S1 normal heart sound present, S2 normal heart sound present and No murmurs present (Cardio) RHYTHM: regular rhythm HEART SOUNDS: S1 normal heart sound present and S2 normal heart sound present GI: COMMON NORMALS: Normal to inspection, nondistended, normoactive bowel sounds present, Soft to palpation and non-tender PALPATION: Yes Soft to palpation Extremity: NARRATIVE EXTREMITY EXAM: Large +2 bilateral pitting edema Neuro: COMMON NORMALS: patient oriented x3 and moves all extremities S ENSORIUM/ORIENTATION: Yes alert Skin: COMMON NORMALS: no rashes or lesions noted GENERAL SKIN EXAM: no rashes or lesions noted Data 07/08/25 05:52 07/10/25 17:09 Micro: Microbiology 07/07/25 14:42 Blood Culture - Preliminary Blood NEGATIVE TO DATE 07/07/25 14:42 Blood Culture - Preliminary Blood NEGATIVE TO DATE 07/07/25 14:30 Urine Culture - Preliminary Urine,Clean Catch Gram Negative Rods A&P Assessment and plan 1. Acute hypoxic respiratory failure: Plan: 85-year-old female with morbid obesity, paroxysmal atrial fibrillation, on Eliquis 5 mg twice daily, aspirin 81 mg daily, metoprolol tartrate 12.5 mg twice daily, minimal dose. Presents to the ED with generalized weakness and mild shortness of breath. Severe leg swelling. Paroxysmal atrial fibrillation Pulmonary hypertension with cor pulmonale Anticoagulated state Hypertension on hydrochlorothiazide 25 mg p.o. daily Hypercholesterolemia I reviewed echocardiogram last 1 done was recently on 04/08/2024 and showed normal left ventricular cavity size with grade 4 diastolic dysfunction ?Patient is currently in sinus rhythm, will maintain anticoagulation. ?Not likely pneumonia or any respiratory distress. More likely urinary source with positive gram-negative rods in urine, pending specificity. Will observe patient overnight, with RT therapy support, CPAP versus BiPAP, will admit for observation. ?Started ceftriaxone 1 g IV daily DVT prophylaxis: Eliquis GI prophylaxis: Protonix 40 mg p.o. daily Plan is to wait for urine specificities, plan for discharge back to SNF, patient has authorization. PDMP PDMP Reviewed: Not Reviewed Attestations 2 Medical Necessity Statement*: Patient placed in observation, anticipate discharge tomorrow on p.o. antibiotics if she remains stable. Diagnoses Acute hypoxic respiratory failure J96.01
[2025-07-09] VITALS (8 sets, daily range): BP systolic 102–139; BP diastolic 53–78; PULSE 60–135; RESP 14–22; TEMP 36.4–37.4; O2SAT 93–97; BMI 37.5
--- NOTE | 2025-07-09 02:15 | ECG_ITS ---
[employer] Test Date: 2025-07-09 Pat Name: Heidi Banuelos Department: Room: 277 Gender: Female Director Medical Surgical: : 1940 Requested By: Jcarlos Nance Order Number: [id number] Reading MD: KARSON MCDONOUGH Measurements Intervals [place] Rate: 93 P: 8 VA: 146 QRS: 16 QRSD: 75 T: 2 QT: 348 QTc: 434 Interpretive Statements SINUS RHYTHM WITH FREQUENT SUPRAVENTRICULAR PREMATURE COMPLEXES LOW QRS VOLTAGE IN PRECORDIAL LEADS [QRS DEFLECTION < 1.0 mV IN CHEST LEADS] NONSPECIFIC T-WAVE ABNORMALITY ABNORMAL RHYTHM ECG Compared to ECG 07/07/2025 21:21:22 Low QRS voltage now present T-wave abnormality now present Electronically Signed On 07-10-2025 22:59:16 SUPER[employer]ENT GENERATING [employer] by KARSON MCDONOUGH [id number] [id number]
[2025-07-09] MEDS: ATORVASTATIN 20 MG TABLET PO (05:15)
--- NOTE | 2025-07-09 14:48 | ECG_ITS ---
[employer] Test Date: 2025-07-09 Pat Name: Heidi Banuelos Department: Room: 277 Gender: Female Cooperative Education Coordinator: : 1940 Requested By: Jcarlos Nance Order Number: [id number] Reading MD: KARSON MCDONOUGH Measurements Intervals [place] Rate: 132 P: 0 NE: 0 QRS: 12 QRSD: 85 T: -31 QT: 272 QTc: 404 Interpretive Statements ATRIAL FLUTTER/TACHYCARDIA WITH RAPID VENTRICULAR RESPONSE NONSPECIFIC ST & T-WAVE ABNORMALITY ABNORMAL RHYTHM ECG Compared to ECG 07/09/2025 02:23:54 Sinus rhythm no longer present T-wave abnormality still present Electronically Signed On 07-10-2025 22:57:22 IT DATA ARCHITECT by KARSON MCDONOUGH [id number]
--- NOTE | 2025-07-09 20:17 | P.PN_ITS ---
Subjective 2 Subjective: Patient awake and alert. About 2 PM today she had an episode of atrial flutter, confirmed by EKG. Reverted back to sinus rhythm, and heart rate is stable with metoprolol to tartrate 12.5 mg twice daily. Blood pressure stable. Remains on anticoagulation. No other remarkable events, patient has no complaints. Vitals/I&O/Wt Last Vital Signs Temp 98.0 F 07/10/25 19:55 Pulse 94 07/10/25 19:55 Resp 17 07/10/25 19:55 BP 109/73 07/10/25 19:55 Pulse Ox 94 07/10/25 19:55 O2 Del Method Nasal Cannula 07/10/25 19:55 O2 Flow Rate 2 07/10/25 10:00 Weight last 48 hrs Weight 89.63 kg Weight 87.09 kg Physical Exam 2 Const: COMMON NORMALS: patient oriented x3 and alert GENERAL APPEARANCE: c ooperative ORIENTATION/CONSCIOUSNESS: Yes awake HENMT: COMMON NORMALS: oropharynx normal Neck/C-Spine: COMMON NORMALS: no JVD Resp: COMMON NORMALS: normal respiratory effort and clear to auscultation bilaterally AUSCULTATION: clear to auscultation bilaterally Cardio: COMMON NORMALS: no JVD, regular rhythm, S1 normal heart sound present, S2 normal heart sound present and No murmurs present (Cardio) RHYTHM: regular rhythm HEART SOUNDS: S1 normal heart sound present and S2 normal heart sound present GI: COMMON NORMALS: Normal to inspection, nondistended, normoactive bowel sounds present, Soft to palpation and non-tender PALPATION: Yes Soft to palpation Extremity: NARRATIVE EXTREMITY EXAM: Large +2 bilateral pitting edema Neuro: COMMON NORMALS: patient oriented x3 and moves all extremities S ENSORIUM/ORIENTATION: Yes alert Skin: COMMON NORMALS: no rashes or lesions noted GENERAL SKIN EXAM: no rashes or lesions noted Data 07/08/25 05:52 07/10/25 17:09 A&P Assessment and plan 1. Acute hypoxic respiratory failure: Plan: 85-year-old female with morbid obesity, paroxysmal atrial fibrillation, on Eliquis 5 mg twice daily, aspirin 81 mg daily, metoprolol tartrate 12.5 mg twice daily, minimal dose. Presents to the ED with generalized weakness and mild shortness of breath. Severe leg swelling. Paroxysmal atrial fibrillation Pulmonary hypertension with cor pulmonale Anticoagulated state Hypertension on hydrochlorothiazide 25 mg p.o. daily Hypercholesterolemia I reviewed echocardiogram last 1 done was recently on 04/08/2024 and showed normal left ventricular cavity size with grade 4 diastolic dysfunction ?Patient is currently in sinus rhythm, will maintain anticoagulation. Paroxysmal atrial fibrillation, had a event for about 1 hour of rapid A-fib, converted back spontaneously. Continue current management. ?Not likely pneumonia or any respiratory distress. More likely urinary source with positive gram-negative rods in urine, pending specificity. Will observe patient overnight, with RT therapy support, CPAP versus BiPAP, will admit for observation. ?Continue ceftriaxone 1 g IV daily ?Remains afebrile, hemodynamically stable. DVT prophylaxis: Eliquis GI prophylaxis: Protonix 40 mg p.o. daily Plan is to wait for urine specificities, plan for discharge back to SNF, patient has authorization. PDMP PDMP Reviewed: Not Reviewed Attestations 2 Medical Necessity Statement*: Transition patient to inpatient, she is having bouts of A-fib probably due to underlying systemic illness. Will wait for urine cultures sensitivities to rule out any kind of multidrug-resistant organism/ESBL., With expected discharge in 24 to 48 hours to skilled nurse facility. Diagnoses Acute hypoxic respiratory failure J96.01
[2025-07-10] VITALS (8 sets, daily range): BP systolic 92–141; BP diastolic 61–81; PULSE 67–136; RESP 17–45; TEMP 36.5–37.2; O2SAT 92–97; BMI 38.5
[2025-07-10] MEDS: ATORVASTATIN 20 MG TABLET PO (06:14)
--- NOTE | 2025-07-10 11:13 | XRR_ITS ---
PROCEDURE INFORMATION: Exam: XR Chest Exam date and time: 07/10/2025 1:53 PM Age: 85 years old Clinical indication: Cough; Additional info: Pneumonia; Chest congestion; Cough TECHNIQUE: Imaging protocol: Radiologic exam of the chest. Views: 1 view. COMPARISON: CR (CHEST, ) 07/07/2025 2:40 PM FINDINGS: Lungs: Suboptimal pulmonary expansion with associated accentuation of bronchovascular markings. Mild scar versus atelectasis left lung base. No acute pulmonary pathology given technique. Mild coarsening of the pulmonary interstitium. Pleural spaces: No pleural effusion. Heart/Mediastinum: Large hiatal hernia is slightly less conspicuous on the current study. Cardiomediastinal contours accentuated by low lung volumes and AP technique. Bones/joints: No significant pathology. XR/XR chest 1V portable [id number] IMPRESSION: No acute pathology given technique.
--- NOTE | 2025-07-10 13:51 | P.PN_ITS ---
Subjective 2 Subjective: Patient appeared to have more shallow rapid breathing today from yesterday, x- ray unchanged, no pulmonary edema. Notified the nurse that she became tachycardic heart rates in the 130s to 140s, Saturating 92% on nasal cannula. EKG confirmed A-fib RVR. Etiology unclear, checking labs. Transferred to CSU for telemetry/cardiac monitoring. Blood pressure stable 108/69. Starting titratable Cardizem drip. Patient is already anticoagulated with Eliquis 5 mg twice daily. Maximum of 136 bpm at 3 PM, BP stable. 119/80. New labs ordered, reviewed. Potassium 3.9 magnesium 2.0, glucose 125, phosphorus 2.1. Albumin 2.7. All relatively stable. Since patient had sustained A-fib/flutter with paroxysmal episodes during hospitalization with underlying systemic illness, she was transferred to CSU today for placement on diltiazem drip and modifications of her oral medications. also sensitivities return for her E. coli UTI, with resistance only to ampicillin, otherwise pansensitive. Patient has been receiving ceftriaxone 1 g IV daily for 2 days now. Remains afebrile, is bedbound but reports mild dyspnea. Vitals/I&O/Wt Last Vital Signs Temp 98.2 F 07/10/25 11:34 Pulse 112 H 07/10/25 11:34 Resp 17 07/10/25 11:34 BP 108/69 07/10/25 11:34 Pulse Ox 92 07/10/25 11:34 O2 Del Method Nasal Cannula 07/10/25 11:34 O2 Flow Rate 2 07/10/25 10:00 07/09/25 07/10/25 07/10/25 22:59 06:59 14:59 Intake Total 0 / 240 0 / 240 240 / 240 Balance 0 / 240 0 / 240 240 / 240 Weight last 48 hrs Weight 89.63 kg Weight 87.09 kg Physical Exam 2 Const: COMMON NORMALS: patient oriented x3 and alert GENERAL APPEARANCE: c ooperative ORIENTATION/CONSCIOUSNESS: Yes awake HENMT: COMMON NORMALS: oropharynx normal Neck/C-Spine: COMMON NORMALS: no JVD Resp: COMMON NORMALS: normal respiratory effort and clear to auscultation bilaterally AUSCULTATION: clear to auscultation bilaterally Cardio: COMMON NORMALS: no JVD, regular rhythm, S1 normal heart sound present, S2 normal heart sound present and No murmurs present (Cardio) RHYTHM: regular rhythm HEART SOUNDS: S1 normal heart sound present and S2 normal heart sound present GI: COMMON NORMALS: Normal to inspection, nondistended, normoactive bowel sounds present, Soft to palpation and non-tender PALPATION: Yes Soft to palpation Extremity: NARRATIVE EXTREMITY EXAM: Large +2 bilateral pitting edema Neuro: COMMON NORMALS: patient oriented x3 and moves all extremities S ENSORIUM/ORIENTATION: Yes alert Skin: COMMON NORMALS: no rashes or lesions noted GENERAL SKIN EXAM: no rashes or lesions noted Data 07/08/25 05:52 07/10/25 17:09 Micro: Microbiology 07/07/25 14:30 Urine Culture - Final Urine,Clean Catch Escherichia coli A&P Assessment and plan 1. Acute hypoxic respiratory failure: Plan: 85-year-old female with morbid obesity, paroxysmal atrial fibrillation, on Eliquis 5 mg twice daily, aspirin 81 mg daily, metoprolol tartrate 12.5 mg twice daily, minimal dose. Presents to the ED with generalized weakness and mild shortness of breath. Severe leg swelling. Paroxysmal atrial fibrillation Pulmonary hypertension with cor pulmonale Anticoagulated state Hypertension on hydrochlorothiazide 25 mg p.o. daily Hypercholesterolemia Complicated UTI, E. coli, treated I reviewed echocardiogram last 1 done was recently on 04/08/2024 and showed normal left ventricular cavity size with grade 4 diastolic dysfunction ?Patient is currently in sinus rhythm, will maintain anticoagulation. Paroxysmal atrial fibrillation, had a event for about 1 hour yesterday of rapid A-fib, converted back spontaneously. Had another event of rapid A-fib that has been sustained today. ?Not likely pneumonia or any respiratory distress. More likely urinary source with positive gram-negative rods in urine, pending specificity. Will observe patient overnight, with RT therapy support. ?Continue ceftriaxone 1 g IV daily ?Transferred to CSU for titration of diltiazem drip, and for closer monitoring of heart rate and vitals with adjustment of her heart rate medications, transition metoprolol to tartrate 12.5 mg twice daily to metoprolol succinate 25 mg daily, with loading dose starting now. Next dose tomorrow morning at 5 AM. DVT prophylaxis: Eliquis GI prophylaxis: Protonix 40 mg p.o. daily Plan is to wait for urine specificities, plan for discharge back to SNF, patient has authorization. PDMP PDMP Reviewed: Not Reviewed Attestations 2 Medical Necessity Statement*: Transition patient to inpatient, she is having bouts of A-fib probably due to underlying systemic illness. Will wait for urine cultures sensitivities to rule out any kind of multidrug-resistant organism/ESBL., With expected discharge in 24 to 48 hours to skilled nurse facility. Diagnoses Acute hypoxic respiratory failure J96.01
[2025-07-10] MEDS: cefTRIAXone 1,000 mg SDV 1000 MG IVP (14:01)
[2025-07-10] MEDS: metoprolol succinate ER (24 HR) 25 mg Tablet PO (15:12)
[2025-07-10] MEDS: DILTIAZEM HCL/D5W 125 MG/125 ML BAG IV (15:43)
[2025-07-10 17:40] LABS: Alanine Aminotransferase 12 U/L (0-33); Albumin Level 2.7 g/dL (3.5-5.2); Alkaline Phosphatase 78 U/L (35-105); Anion Gap 17.9 (5-19); Aspartate Amino Transferase 23 U/L (0-32); Blood Urea Nitrogen 15 mg/dL (8-23); Calcium 8.8 mg/dL (8.5-10.5); Carbon Dioxide 24 mmol/L (22-29); Chloride 101 mmol/L (98-107); Globulin 4.4 g/dL (1.3-4.6); Glucose 125 mg/dL (65-115); Magnesium 2.0 mg/dL (1.7-2.3); Osmolality Calculated 290 mOsm/kg (285-295); Potassium 3.9 mmol/L (3.5-5.1); Sodium 139 mmol/L (136-145); Total Protein 7.1 g/dL (6.6-8.7)
--- NOTE | 2025-07-10 18:46 | PC.NURSE ---
Addendum entered by Soledad Bowens RN 07/12/25 01:59: GI soft diet order for patient so that she may receive adequate nutrition. Original Note: according to granddaughter, patient is too lazy to chew and would like a GI soft diet.
--- NOTE | 2025-07-10 19:31 | ECG_ITS ---
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
[2025-07-11] VITALS (8 sets, daily range): BP systolic 103–128; BP diastolic 65–85; PULSE 74–113; RESP 18–45; TEMP 36.4–36.7; O2SAT 90–98; BMI 37.4
[2025-07-11] MEDS: DILTIAZEM HCL/D5W 125 MG/125 ML BAG IV (00:56)
[2025-07-11 03:17] LABS: Hematocrit 35.7 % (36-47); Hemoglobin 11.20 g/dL (11.27-16.99); Mean Corpuscular HGB Conc 31.4 g/dL (30-55); Mean Corpuscular Hemoglobin 29.0 pg (27-33); Mean Corpuscular Volume 92.5 fl (85-98); Nucleated Red Blood Cells % 0 %; Platelet Count 255 10^3/cmm (157-399); Red Blood Count 3.86 10^6/uL (3.85-5.65); White Blood Count 10.40 10^3/uL (3.29-11.43)
[2025-07-11 03:33] LABS: Magnesium 2.2 mg/dL (1.7-2.3)
[2025-07-11 03:36] LABS: Alanine Aminotransferase 17 U/L (0-33); Albumin Level 3.0 g/dL (3.5-5.2); Alkaline Phosphatase 83 U/L (35-105); Anion Gap 16.0 (5-19); Aspartate Amino Transferase 29 U/L (0-32); Blood Urea Nitrogen 16 mg/dL (8-23); Calcium 8.6 mg/dL (8.5-10.5); Carbon Dioxide 27 mmol/L (22-29); Chloride 101 mmol/L (98-107); Globulin 3.1 g/dL (1.3-4.6); Glucose 115 mg/dL (65-115); Osmolality Calculated 292 mOsm/kg (285-295); Potassium 4.0 mmol/L (3.5-5.1); Sodium 140 mmol/L (136-145); Total Protein 6.1 g/dL (6.6-8.7)
[2025-07-11] MEDS: metoprolol succinate ER (24 HR) 25 mg Tablet 50 MG PO (06:29)
[2025-07-11] MEDS: cefTRIAXone 1,000 mg SDV 1000 MG IVP (06:30)
[2025-07-11] MEDS: ATORVASTATIN 20 MG TABLET PO (06:30)
--- NOTE | 2025-07-11 07:54 | PC.NURSE ---
1957-During bedside report patient states she has pain in her chest and back. She is also shallow, rapid breathing. EKG obtained and Dr. Bradley notified. Current BP 100/58 HR 78. Received orders for stat trop and then was cancelled after MD came to look at bedside. Also discussed pain management with MD as patient states she cannot have tramadol. MD to dc tramadol and nurse to give tylenol instead.
--- NOTE | 2025-07-11 09:50 | PC.NURSE ---
Provider updated on patient going into SR and heart rate of 65-70's. Her cardizem drip is running at 2.5mg. Provider ordered to stop.
--- NOTE | 2025-07-11 17:15 | XRR_ITS ---
PROCEDURE INFORMATION: Exam: XR Chest Exam date and time: 07/11/2025 5:45 PM Age: 85 years old Clinical indication: Tachypnea; Additional info: Tachypneia TECHNIQUE: Imaging protocol: Radiologic exam of the chest. Views: 1 view. COMPARISON: CR (CHEST, ) 07/10/2025 1:53 PM FINDINGS: Lungs: Unremarkable. No consolidation. Pleural spaces: Unremarkable. No pleural effusion. No pneumothorax. Heart/Mediastinum: Large hiatal hernia present Bones/joints: Degenerative changes of the shoulders present XR/XR chest 1V portable [id number] IMPRESSION: Large hiatus hernia No acute cardiopulmonary process
--- NOTE | 2025-07-11 17:18 | PM.PN ---
Vitals/I&O/Wt Last Vital Signs Temp 97.5 F L 07/11/25 07:34 Pulse 75 07/11/25 15:31 Resp 45 H 07/11/25 15:31 BP 103/67 07/11/25 15:31 Pulse Ox 92 07/11/25 15:31 O2 Del Method Nasal Cannula 07/11/25 03:56 O2 Flow Rate 2 07/10/25 10:00 07/11/25 07/11/25 07/11/25 06:59 14:59 22:59 Intake Total 48.333 / 375.874 249.667 / 249.667 Balance 48.333 / 375.874 249.667 / 249.667 Weight last 48 hrs Weight 86.9 kg Weight 89.63 kg Data 07/11/25 02:22 07/11/25 02:22 A&P PDMP PDMP Reviewed: Not Reviewed Coding Level of Care Code Acute Code for Chg Fwd
[2025-07-11] MEDS: methylPREDNISolone sod succ 40 mg/mL INJ IVP (17:48)
--- NOTE | 2025-07-11 23:19 | P.PN_ITS ---
Subjective 2 Subjective: Patient is a very pleasant 85-year-old female seen and examined at bedside on hospital rounds today. Patient sitting up in bed stating that she is very tired but denies current chest pain or shortness of breath. Patient heart rate better controlled, continues oxygen supplementation 2 L/min by nasal cannula. Will work on transitioning to oral antibiotics, most likely discharge within the next 24 hours. All questions and concerns addressed with the patient at the bedside today. Vitals/I&O/Wt Last Vital Signs Temp 98.1 F 07/11/25 19:06 Pulse 84 07/12/25 00:00 Resp 20 H 07/12/25 00:00 BP 115/69 07/12/25 00:00 Pulse Ox 96 07/12/25 00:00 O2 Del Method Nasal Cannula 07/12/25 00:00 O2 Flow Rate 2 07/12/25 00:00 07/11/25 07/11/25 07/12/25 14:59 22:59 06:59 Intake Total 249.667 / 249.667 120 / 369.667 Balance 249.667 / 249.667 120 / 369.667 Weight last 48 hrs Weight 86.9 kg Weight 89.63 kg Physical Exam 2 Const: COMMON NORMALS: patient oriented x3 and alert GENERAL APPEARANCE: c ooperative ORIENTATION/CONSCIOUSNESS: Yes awake HENMT: COMMON NORMALS: oropharynx normal Neck/C-Spine: COMMON NORMALS: no JVD Resp: COMMON NORMALS: normal respiratory effort and clear to auscultation bilaterally AUSCULTATION: clear to auscultation bilaterally Cardio: COMMON NORMALS: no JVD and No murmurs present (Cardio) RHYTHM: a bnormal rhythm regularly irregular GI: COMMON NORMALS: Normal to inspection, nondistended, normoactive bowel sounds present, Soft to palpation and non-tender PALPATION: Yes Soft to palpation Extremity: NARRATIVE EXTREMITY EXAM: Trace dependent edema noted Neuro: COMMON NORMALS: patient oriented x3 and moves all extremities S ENSORIUM/ORIENTATION: Yes alert Skin: COMMON NORMALS: no rashes or lesions noted GENERAL SKIN EXAM: no rashes or lesions noted Data 07/11/25 02:22 07/11/25 02:22 A&P Assessment and plan 1. Acute hypoxic respiratory failure: - Supplemental oxygen by nasal cannula 2 L/min -Continue supportive measures, as needed DuoNeb - Will need continued oxygen supplementation on discharge back to SNF 2. Atrial fibrillation: - Currently rate controlled - Continue oral metoprolol and chronic anticoagulation with Eliquis 3. Hypertension: - Well-controlled - Continue metoprolol 4. Hyperlipidemia: - Continue cardioprotective medications including Lipitor 5. Urinary tract infection: - Continue IV Rocephin, transition to oral antibiotic at discharge - Pansensitive E. coli, only resistant to ampicillin Plan: 85-year-old female with morbid obesity, paroxysmal atrial fibrillation, on Eliquis 5 mg twice daily, aspirin 81 mg daily, metoprolol tartrate 12.5 mg twice daily, minimal dose. Presents to the ED with generalized weakness and mild shortness of breath. Severe leg swelling. DVT prophylaxis: Eliquis GI prophylaxis: Protonix 40 mg p.o. daily Plan is to wait for urine specificities, plan for discharge back to SNF, patient has authorization. PDMP PDMP Reviewed: Not Reviewed Attestations 2 Medical Necessity Statement*: Continued inpatient management with respiratory failure, atrial fibrillation, complex medical management. Coding Level of Care Code 40799 Diagnoses Acute hypoxic respiratory failure J96.01 Atrial fibrillation I48.91 Hypertension I10 Hyperlipidemia E78.5 Urinary tract infection N39.0
[2025-07-12] VITALS (8 sets, daily range): BP systolic 106–135; BP diastolic 52–93; PULSE 77–139; RESP 18–30; TEMP 36.6; O2SAT 90–96; BMI 36.2
[2025-07-12] MEDS: DILTIAZEM HCL/D5W 125 MG/125 ML BAG 10 MG IV (02:11)
[2025-07-12] MEDS: cefTRIAXone 1,000 mg SDV 1000 MG IVP (04:20)
[2025-07-12] MEDS: metoprolol succinate ER (24 HR) 25 mg Tablet 50 MG PO (04:20)
[2025-07-12] MEDS: ATORVASTATIN 20 MG TABLET PO (04:20)
--- NOTE | 2025-07-12 10:43 | PM.DCS ---
Discharge Providers Date of Admission: 07/10/25 13:00 Date of Discharge: July 12, 2025 Attending Provider at Admission: Jcarlos Nance MD Attending Provider at Discharge: Alejandrina Charles NP Primary Care Provider: Jeovany Patel DO Diagnoses at Discharge Discharge Diagnosis 1. Acute hypoxic respiratory failure: 2. Chronic atrial fibrillation: 3. Primary hypertension: 4. Hyperlipidemia: 5. Urinary tract infection: Reason for Visit Reason for Visit: Aloc today Brief History: Admission: Heidi Banuelos is a 85 year old female past medical history of severe obesity, pulmonary hypertension, cor pulmonale anemia anxiety came in the emergency room from the long term for malaise, weakness and shallow breathing. I saw the patient, she was awake alert oriented. She does have some acute on chronic lower pitting edema for which she has only been taking hydrochlorothiazide. Vitals were normal, patient was saturating 95 to 96% on room air respiratory therapy ordered. Hospital Course Hospital Course Assessment and plan 1. Acute hypoxic respiratory failure: - Supplemental oxygen by nasal cannula 2 L/min - Continue supportive measures, as needed DuoNeb - Will need continued oxygen supplementation on discharge back to SNF 2. Atrial fibrillation: - Currently rate controlled - Continue oral metoprolol and chronic anticoagulation with Eliquis 3. Hypertension: - Well-controlled - Continue metoprolol 4. Hyperlipidemia: - Continue cardioprotective medications including Lipitor 5. Urinary tract infection: - Continue IV Rocephin, transition to oral antibiotic with Levaquin at discharge - Pansensitive E. coli, only resistant to ampicillin Discharge: Patient discharges back to senior living in stable condition, continued oxygen supplementation at discharge. Patient transitions to oral Levaquin x 5 more days for 14 days of coverage for E. coli UTI. Advised follow-up with primary care provider within 1 to 2 days of discharge, resume home medications as previously prescribed. Physical Exam Const: COMMON NORMALS: patient oriented x3 and alert GENERAL APPEARANCE: cooperative ORIENTATION/CONSCIOUSNESS: Yes awake HENMT: COMMON NORMALS: oropharynx normal Neck/C-Spine: COMMON NORMALS: no JVD Resp: COMMON NORMALS: normal respiratory effort and clear to auscultation bilaterally AUSCULTATION: clear to auscultation bilaterally Cardio: COMMON NORMALS: no JVD and No murmurs present (Cardio) RHYTHM: abnormal rhythm regularly irregular GI: COMMON NORMALS: Normal to inspection, nondistended, normoactive bowel sounds present, Soft to palpation and non-tender PALPATION: Yes Soft to palpation Extremity: NARRATIVE EXTREMITY EXAM: Trace dependent edema noted Neuro: COMMON NORMALS: patient oriented x3 and moves all extremities SENSORIUM/ORIENTATION: Yes alert Skin: COMMON NORMALS: no rashes or lesions noted GENERAL SKIN EXAM: no rashes or lesions noted Discharge Data Studies Completed and Pending Completed Studies During Hospitalization Category Date Time Status CXRP [XR chest 1V portable [id number]] Stat Exams 07/11/25 17:15 Completed XR chest 1V portable [id number] Routine Exams 07/10/25 11:13 Completed XR chest 1V portable [id number] Stat Exams 07/07/25 14:18 Completed US venous duplex lower extremity LT [CV venous duplex Ultrasound 07/07/25 22:15 [place] [id number]] Routine Pending at discharge Category Date Time Status Blood Culture Stat Lab 07/07/25 14:42 Results Radiology Impressions Venous Duplex 07/07/25 22:15 IMPRESSION: No evidence of deep vein thrombosis. Chest X-Ray 07/11/25 17:15 IMPRESSION: Large hiatus hernia No acute cardiopulmonary process Laboratory Results WBC 10.40 10^3/uL (3.29-11.43) 07/11/25 02:22 RBC 3.86 10^6/uL (3.85-5.65) 07/11/25 02:22 Hgb 11.20 g/dL (11.27-16.99) L 07/11/25 02:22 Hct 35.7 % (36-47) L 07/11/25 02:22 MCV 92.5 fl (85-98) 07/11/25 02:22 MCH 29.0 pg (27-33) 07/11/25 02:22 MCHC 31.4 g/dL (30-55) 07/11/25 02:22 RDW 13.2 % (12.1-15.1) 07/11/25 02:22 Plt Count 255 10^3/cmm (157-399) 07/11/25 02:22 MPV 12.2 fL (7.4-10.4) H 07/11/25 02:22 Neut % (Auto) 76.1 % 07/11/25 02:22 Lymph % (Auto) 12.1 % 07/11/25 02:22 Banner % (Auto) 10.1 % 07/11/25 02:22 Eos % (Auto) 1.0 % 07/11/25 02:22 Baso % (Auto) 0.3 % 07/11/25 02:22 Neut # (Auto) 7.92 10^3/uL (1.8-7.7) H 07/11/25 02:22 Lymph # (Auto) 1.3 10^3/uL (0.8-4.8) 07/11/25 02:22 Banner # (Auto) 1.1 10^3/uL (0.2-0.9) H 07/11/25 02:22 Eos # (Auto) 0.1 10^3/uL (0.0-0.8) 07/11/25 02:22 Baso # (Auto) 0.0 10^3/uL (0.0-0.1) 07/11/25 02:22 Nucleated RBC % (auto) 0 % 07/11/25 02:22 Nucleated RBCs # 0.0 /100WBC 07/11/25 02:22 PT 21.70 SECONDS (12.1-14.9) H 07/07/25 14:42 INR 1.77 (0.8-1.2) H 07/07/25 14:42 APTT 36.9 SECONDS (23.9-36.7) H 07/07/25 14:42 Sodium 140 mmol/L (136-145) 07/11/25 02:22 Potassium 4.0 mmol/L (3.5-5.1) 07/11/25 02:22 Chloride 101 mmol/L (98-107) 07/11/25 02:22 Carbon Dioxide 27 mmol/L (22-29) 07/11/25 02:22 Anion Gap 16.0 (5-19) 07/11/25 02:22 BUN 16 mg/dL (8-23) 07/11/25 02:22 Creatinine 0.7 mg/dL (0.5-0.9) 07/11/25 02:22 GFR Calculation Not Reportable 07/11/25 02:22 Glucose 115 mg/dL (65-115) 07/11/25 02:22 Calculated Osmolality 292 mOsm/kg (285-295) 07/11/25 02:22 Lactic Acid 1.9 mmol/L (0.5-2.2) 07/07/25 14:42 Calcium 8.6 mg/dL (8.5-10.5) 07/11/25 02:22 Phosphorus 2.2 mg/dL (2.5-4.5) L 07/11/25 02:22 Magnesium 2.2 mg/dL (1.7-2.3) 07/11/25 02:22 Total Bilirubin 0.5 mg/dL (0.15-1.2) 07/11/25 02:22 AST 29 U/L (0-32) 07/11/25 02:22 ALT 17 U/L (0-33) 07/11/25 02:22 Alkaline Phosphatase 83 U/L (35-105) 07/11/25 02:22 Troponin T Baseline 24 ng/L (0-10) H 07/07/25 14:42 Troponin T 60 Minute 23.03 ng/L (0-10) H 07/07/25 15:23 Delta Troponin T -0.97 ABS# (0-10) L 07/07/25 15:23 Troponin T Hi Sens 6Hr 22.25 ng/L (0-10) H 07/07/25 21:17 Troponin T Hi Sens 6Hr Delta -1.75 ng/L (0-12) L 07/07/25 21:17 NT-Pro-B Natriuret Pep 409 pg/mL (0-450) 07/07/25 14:42 Total Protein 6.1 g/dL (6.6-8.7) L 07/11/25 02:22 Albumin 3.0 g/dL (3.5-5.2) L 07/11/25 02:22 Globulin 3.1 g/dL (1.3-4.6) 07/11/25 02:22 Urine Color Yellow (Yellow) 07/07/25 14:30 Urine Appearance Cloudy (CLEAR) A 07/07/25 14:30 Urine pH 5.5 (5-7) 07/07/25 14:30 Ur Specific [place] 1.022 (1.005-1.030) 07/07/25 14:30 Urine Protein Trace (Negative) A 07/07/25 14:30 Urine Glucose (UA) Negative (Normal) 07/07/25 14:30 Urine Ketones Negative (Negative) 07/07/25 14:30 Urine Blood Non-haemolysed trace (Negative) 07/07/25 14:30 Urine Nitrate Positive (Negative) A 07/07/25 14:30 Urine Bilirubin Negative (Negative) 07/07/25 14:30 Urine Urobilinogen 1.0 mg/dL (Negative) 07/07/25 14:30 Ur Leukocyte Esterase 3+ (Negative) A 07/07/25 14:30 Urine RBC 3-5 /hpf (0-2) 07/07/25 14:30 Urine WBC >100 /hpf (0-5) H 07/07/25 14:30 Ur Squamous Epith Cells 0-5 /hpf (0-5) 07/07/25 14: Amorphous Sediment Not Reportable 07/07/25 14:30 Urine Bacteria 3+ /hpf (NONE) H 07/07/25 14:30 Hyaline Casts 13.22 /lpf 07/07/25 14:30 Influenza A (PCR) Negative (Negative) 07/07/25 14:24 Influenza Type B (PCR) Negative (Negative) 07/07/25 14:24 RSV (PCR) Negative (Negative) 07/07/25 14:24 SARS-CoV-2 (PCR) Negative (Negative) 07/07/25 14:24 Vitals Last Vital Signs Temp 97.9 F 07/12/25 07:18 Pulse 77 07/12/25 07:53 Resp 20 H 07/12/25 07:53 BP 135/76 07/12/25 07:18 Pulse Ox 94 07/12/25 07:53 O2 Del Method Nasal Cannula 07/12/25 07:53 O2 Flow Rate 2 07/12/25 07:53 Discharge Plan Discharge Patient Disposition: Xfer SNF Condition: Stable Prescriptions: New pantoprazole 40 mg Tablet,Delayed Release (Dr/Ec) 40 mg PO DAILY 30 Days Qty: 30 0RF metoprolol succinate 25 mg Tablet Extended Release 24 Hr 50 mg PO DAILY 30 Days Qty: 30 0RF levofloxacin 500 mg tablet 500 mg PO DAILY 5 Days Qty: 5 0RF Continued simvastatin 20 mg tablet 20 mg PO QPM fexofenadine 180 mg tablet 180 mg PO DAILY magnesium aspart,citrate,oxide 400 mg magnesium capsule 400 mg PO DAILY aspirin [Adult Low Dose Aspirin] 81 mg tablet,delayed release (DR/EC) 81 mg PO QAM Eliquis 5 mg tablet 5 mg PO BID fluticasone propionate [Flonase Allergy Relief] 50 mcg/actuation spray,suspension 2 spray intranasal QAM Rx Instructions: administer into each nostril acetaminophen [Tylenol] 325 mg Tablet 650 mg PO BID tramadol 50 mg tablet See Rx Instructions .ROUTE .COMPLEX PRN (Reason: Severe Pain (Scale Score 7-10)) Rx Instructions: Give 1 tablet by mouth every 6 hours as needed for mild pain or 2 tablets for severe pain. calcium carbonate 500 mg calcium (1,250 mg) Tablet 500 mg PO DAILY hydrochlorothiazide 25 mg tablet 25 mg PO DAILY Discontinued tramadol 50 mg tablet 50 mg PO DAILY metoprolol tartrate 25 mg tablet 12.5 mg PO BID acetaminophen 325 mg Tablet 650 mg PO Q4H PRN (Reason: general discomfort) Discharge Order = DC NOW: Discharge Order (Routine); Ordered 07/12/25 Ordered By: Alejandrina Charles Referrals: [facility] [Outside] Jeovany Patel DO [Primary Care Provider, Family Practice] - 1-3 days Discharge Diet: Usual diet Discharge Activity: Resume usual activity Patient Instructions: Metoprolol (By mouth), Levofloxacin (By mouth), Pantoprazole (By mouth) (Protonix), Opioid Safety, Pain Management, Patient Portal & Otilio Instructions Discharge Attestations Time Spent in Discharge Care*: greater than 30 min Quality Metrics Clinical Quality Measures [ No reported AMI, CVA or VTE this stay] Coding Level of Care Code 35559 Diagnoses Acute hypoxic respiratory failure J96.01 Chronic atrial fibrillation I48.20 Atrial fibrillation type: unspecified chronic Primary hypertension I10 Hypertension type: primary hypertension Hyperlipidemia E78.5 Urinary tract infection N30.00 Hematuria presence: without hematuria Urinary tract infection type: acute cystitis
--- NOTE | 2025-07-12 13:38 | PC.NURSE ---
Report is given to [facility], ROMINA Jhaveri at [phone].
--- NOTE | 2025-07-12 14:27 | PC.NURSE ---
Patient was just picked up by EMS for transport to [facility] at 1427.
== END 2025-07-12 14:29 | disposition skilled nursing facility (03) | DRG 689 ==
LOC: ER 16:28 → MEDSURG 17:49 → CSU 07-11 07:38 → MEDSURG 07-11 08:39 → CSU 07-11 10:43
PROVIDERS: Admitting Provider Internal Medicine; Emergency Provider Physician Assistant; PCP Electrodiagnostic Medicine; Visit Provider Registered Nurse
DX: N30.00 Acute cystitis without hematuria (principal); J96.01 Acute respiratory failure with hypoxia; Z16.11 Resistance to penicillins; I48.92 Unspecified atrial flutter; B96.20 Unspecified Escherichia coli [E. coli] as the cause of diseases classified elsewhere; I48.0 Paroxysmal atrial fibrillation; I10 Essential (primary) hypertension; E78.00 Pure hypercholesterolemia, unspecified; E66.01 Morbid (severe) obesity due to excess calories; Z68.36 Body mass index [BMI] 36.0-36.9, adult; I27.20 Pulmonary hypertension, unspecified; I27.81 Cor pulmonale (chronic); D64.9 Anemia, unspecified; F41.9 Anxiety disorder, unspecified; G25.81 Restless legs syndrome; R41.82 Altered mental status, unspecified; M19.90 Unspecified osteoarthritis, unspecified site; G62.9 Polyneuropathy, unspecified; G25.0 Essential tremor; K58.9 Irritable bowel syndrome, unspecified; F32.A Depression, unspecified; Z79.82 Long term (current) use of aspirin; Z79.01 Long term (current) use of anticoagulants; I25.2 Old myocardial infarction; Z89.022 Acquired absence of left finger(s); Z88.0 Allergy status to penicillin; Z82.49 Family history of ischemic heart disease and other diseases of the circulatory system
CPT/HCPCS: 36415; 71045; 80053; 81001; 83605; 83735; 83880; 84100; 84484; 85025; 85610; 85730; 87040; 87077; 87086; 87186; 87637; 93005; 93971; 94640; 94664; 96372; 96374; 97110; 97161; 99285; G0378; J0696; J1650; J2919; J3490; J7040; J9999